=== PATIENT | male | born 1945 | race Caucasian/White ===

== ENCOUNTER 2023-05-27 09:51 | Inpatient (IN) ==
[2023-05-27] MEDS ORDERED: SODIUM CHLORIDE 0.9% 500 ML IV STA (10:01)
--- NOTE | 2023-05-27 10:36 | CT Scan Report ---
CT abd pelvis wo con CLINICAL HISTORY: hypotension, LLQ abd pain, constipation TECHNIQUE: Helical axial images of the abdomen and pelvis were obtained. Automated dose lowering tech niques and/or adjustment according to patient size were utilized for this exam. This exam was perfor med without intravenous contrast. CT DOSE: 429.87 mGy.cm COMPARISON: Comparison is made to CT abdomen pelvis 05/17/2023 FINDINGS: Lower chest: Bronchial wall thickening is seen in the lower lungs as visualized. Liver: Hepatic cysts are seen. Gallbladder and biliary tree: Layering radiodense material is seen in the dependent portion of the li carolyn representing sludge. No intra- or extrahepatic biliary ductal dilation. Pancreas: Unremarkable, no focal lesions. Spleen: Unremarkable. Adrenals: Unremarkable. Kidneys and ureters: Unremarkable. Bladder: Diffuse homogeneous wall thickening is seen. Reproductive organs: Prostatic calcifications are seen which may represent prior hemorrhage or granul omatous disease. Bowel: Diverticulosis is seen without diverticulitis. The appendix is normal. Lymph nodes Retroperitoneal: Unremarkable. Pelvic: Unremarkable. Mesenteric: Unremarkable. Peritoneum: Normal. Vessels: Atherosclerotic calcifications are seen. Abdominal wall: Right hernia repair changes are seen. There is a left inguinal hernia containing loop s of bowel which do not appear distended. Bones: Degenerative changes in the visualized spine. IMPRESSION: No acute abnormalities are seen, in particular there is diverticulosis without evidence of diverticul itis in this patient with left lower quadrant pain. No fecal impaction is noted. ACT 112: Negative or not required by law. Electronically signed by: Reyes Turcios M.D. 05/27/2023 10:34 AM
[2023-05-27 10:40] LABS: Basophils # (auto) 0.02 K/uL (0.00-0.20); Basophils % (auto) 0.6 %; Eosinophils # (auto) 0.09 K/uL (0.00-0.50); Eosinophils % (auto) 2.7 %; Hematocrit (blood only) 43.4 % (42.0-52.0); Hemoglobin 14.6 g/dl (14.0-18.0); Immature Granulocytes # (auto) 0.01 K/uL (0.01-0.20); Immature Granulocytes % (auto) 0.3 %; Lymphocytes # (auto) 0.54 K/uL (1.20-3.40); Lymphocytes % (auto) 16.4 %; Mean Corpuscular Hemoglobin 34.5 pg (25.0-34.0); Mean Corpuscular Hgb Conc 33.6 g/dL (32.0-36.0); Mean Corpuscular Volume 102.6 fL (80.0-100.0); Mean Platelet Volume 9.8 fL (9.4-12.4); Monocytes # (auto) 0.34 K/uL (0.11-0.59); Monocytes % (auto) 10.3 %; Neutrophils % (auto) 69.7 %; Platelet Count 224 K/uL (130-400); RDW Coefficient of Variation 12.7 % (11.5-14.5); RDW Standard Deviation 47.8 fL (36.4-46.3); Red Blood Count 4.23 M/uL (4.70-6.10)
[2023-05-27 11:02] LABS: Albumin Globulin Ratio 1.6 (0.9-2); Albumin Level 4.2 gm/dl (3.4-5.0); BUN Creatinine Ratio 13.7 (10-20); Bilirubin,Total 0.5 mg/dl (0.2-1.0); Calcium 8.8 mg/dl (8.6-10.3); Creatinine Clr Calc Pharmacy 43.4 ml/min; Est GFR (African American) 70.3 ml/min; Est GFR (Non-African American) 60.6 ml/min; Globulin 2.6 gm/dl (2.5-4.0); Potassium 4.7 mmol/L (3.5-5.1); Total Protein 6.8 gm/dl (6.0-8.3)
[2023-05-27 11:07] LABS: Troponin I High Sensitivity 7.9 pg/ml (0-20)
[2023-05-27] MEDS ORDERED: HYDROmorphone INJ 0.5 MG/0.5 ML SYR IV STA (11:08)
[2023-05-27] MEDS ORDERED: fentaNYL citrate PF 100 MCG/2 ML VIAL IV STA (11:10)
[2023-05-27 11:11] LABS: INR 1.1 (0.9-1.1); Prothrombin Time 12.4 Seconds (9.0-12.0)
[2023-05-27] MEDS ORDERED: SODIUM CHLORIDE 0.9% 500 ML IV ONE (12:59)
[2023-05-27] MEDS ORDERED: ONDANSETRON INJ 2 MG/ML 2 ML VIAL IV STA (12:59)
[2023-05-27] MEDS ORDERED: SODIUM CHLORIDE 0.9% 1,000 ML IV SCH (13:30)
--- NOTE | 2023-05-27 13:51 | History & Physical Report ---
Date of Service May 27, 2023 Assessment & Plan (1) Acute constipation: Plan: Sudden change in bowel habit warrants outpatient colonoscopy although will defer this to his outpatient providers given progressive neurological disease. Combination of orthostasis with new onset constipation with ill-defined ongoing neurological disease (possible CANVAS) suggests autonomic dysfunction - consider neruology consult. Initial treatment for constipation irregardless is laxatives and will start Miralax TID with Senna/docusate BID - milk molasses enema effective in the ER (2) Orthostatic hypotension: Plan: Suspect autonomic dysfunction as above in setting of vagal stimulation from large bowel movement, anti-hypertensive use and suspect underlying autonomic dysfunction as above. Stop lisinopril. IV fluids overnight. Repeat orthostatics tomorrow to consider fludrocortisone use. (3) SIRS (systemic inflammatory response syndrome): Plan: SIRS criteria met with low WBC and elevated HR without source of infection to suggest sepsis - abdominal pain resolved following large bowel movement in the ER. Procalcitonin and Lactate normal, intermittent hypotension less likely to be infection related. Follow up blood cultures but hold off empiric antibiotics on admission. (4) Macrocytosis without anemia: Plan: B12, folate, retic count, LDH with AM labs (5) Severe protein-calorie malnutrition: Plan: Consult dietary (6) Limb ataxia: Plan: PT/OT (7) Hereditary peripheral neuropathy: (8) Eosinophilic esophagitis: Plan: Continue pantoprazole, no current issues with swallowing (9) Atrial fibrillation: Plan: Paroxysmal, continue amiodarone Continue Eliquis for anticoagulation Plan VTE Prophylaxis - Eliquis Diet - clear liquids, advance as tolerated Disposition - observation status to med/tele Admission and Anticipated Discharge Date Admission Date: May 27, 2023 History of Present Illness Chief Complaint: Abdominal pain, constipation, orthostatic hypotension Primary Care Provider: Dorian Cardenas, III, LI Mukesh Jackson is a 77 year old male with hereditary peripheral neuropathy and 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 He denies any new medications changes. No nausea, vomiting, hemato chezia or melena. Never had problems with constipation previously. He notes 3 weeks of worsening abdominal pain associated with orthostatic dizziness, worsening constipation and no bowel movement for the last 3 weeks. Prior to this he was relatively regular with a bowel movement every day and not requiring laxatives. He was seen in the ER on May 17 and started on Senna without much effect. He has also over the counter colace, MiraLAX, suppositories and an enema. In the ER he was given a milk molasses enema causing a large bowel movement with associated hypotension and diaphoresis. He denies any fever or chills. No history of diverticulitis. Last colonoscopy not completely known by patient or his but possibly 4-5 years ago - thinks this was done in [place]. No prior problems with orthostatic dizziness but this has progressed over the last 3 weeks. He continues to take lisinopril (last took this morning). His notes significant weight loss and progression of his neurological condition with mainly worsening balance and peripheral neuropathy over the last 8 months. He also notes history of paroxysmal atrial fibrillation with recent failed ablation. He continues to take amiodarone 100mg pO daily. He is visibly short of breath but denies this when I ask his. No chest pain. He reports he only gets short of breath when he is in atrial fibrillation. Allergies Allergy/AdvReac Type Severity Reaction Status Date / Time Penicillins Allergy Severe Hives Verified 05/27/23 08:43 morphine AdvReac Severe Anaphylaxis Verified 05/27/23 08:43 phenytoin [From Dilantin] AdvReac Severe Anaphylaxis Verified 05/27/23 08:43 Home Medications Medication Instructions Recorded Confirmed Type apixaban 5 mg tablet (Eliquis) 5 mg PO BID 09/05/20 05/27/23 History loratadine 10 mg tablet (Claritin) 10 mg PO QAM 09/05/20 05/27/23 History cyanocobalamin (vitamin B-12) 500 500 mcg PO QAM 06/06/21 05/27/23 History mcg tablet (Vitamin B-12) fluticasone propionate 50 1 spray intranasal BID 06/26/22 05/27/23 History mcg/actuation nasal spray,suspension latanoprost 0.005 % eye drops 1 drp ophthalmic (eye) HS 07/10/22 05/27/23 History pantoprazole 40 mg tablet,delayed 40 mg PO QAM EOE #90 tabs 07/21/22 05/27/23 Rx release (Protonix) cyclobenzaprine 5 mg tablet 5 mg PO TID PRN muscle spasm #30 08/26/22 05/27/23 Rx tabs atorvastatin 10 mg tablet 10 mg PO HS #90 tabs 09/22/22 05/27/23 Rx magnesium citrate 100 mg tablet 50 mg PO DAILY 11/20/22 05/27/23 History amiodarone 200 mg tablet 100 mg PO QPM 04/09/23 05/27/23 History lisinopril 2.5 mg tablet 2.5 mg PO QAM #90 tabs 05/15/23 05/27/23 Rx sennosides 8.6 mg tablet (Senna 8.6 mg PO BID PRN constipation #14 05/17/23 05/27/23 Rx Lax) tabs albuterol sulfate 90 mcg/actuation 1 - 2 puff inhalation .Q4-6H PRN 05/27/23 05/27/23 History aerosol inhaler (ProAir HFA) shortness of breath or wheezing budesonide-formoterol HFA 160 1 puff inhalation BID 05/27/23 05/27/23 History mcg-4.5 mcg/actuation aerosol inhaler (Symbicort) Past Med/Surg History Medical History Asthma Atrial fibrillation Eosinophilic esophagitis Malignant neoplasm of prostate On anticoagulant therapy Organic impotence Seizure Surgical History H/O cataract extraction H/O endoscopy H/O hernia repair H/O vasectomy History of cardioversion History of colonoscopy History of esophagogastroduodenoscopy (EGD) History of exploratory laparotomy History of lung biopsy History of right knee joint replacement History of tonsillectomy History of tooth extraction Hx of basal cell carcinoma excision Family History Mother Breast cancer Myocardial infarction Father Myocardial infarction Brother Myocardial infarction Sister Cerebellar ataxia Denies family history of Ovarian cancer Prostate cancer Colorectal cancer Social History Smoking Status: Never smoker Second Hand Exposure: No; Do You Dip or Chew Tobacco: No; Hx Alcohol Use: No Hx Substance Use: No Preferred Language: Vietnamese Communication Ability: Effective Visual Impairment: No Limitations Hearing Ability: Use of Hearing Aid Manager Document Control Required: No Beliefs That Will Affect Care: None marital status: Current Living Situation: Spouse current occupational status: employed 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 How many Children do You have: 1 Feels Safe at Home: Yes Childhood Exposure to Second-Hand Smoke: Yes Diet: regular Diet Comment: regular caffeine: Yes during the past year weight has: remained stable Dental Care, Regularly: No Physical Activity Frequency: Daily Seatbelt Use: always Sunscreen Use: No Assistive Devices: Walker Review of Systems Review of Systems: All systems reviewed & are unremarkable except as noted in HPI & below Physical Exam Constitutional: well developed and + cachectic; no acute distress Eyes: PERRL, conjunctivae normal, anicteric sclerae ENMT: Mouth: + dry oral mucous membranes Respiratory: + labored breathing, + uses accessory muscles and able to speak in complete sentences; no cough, no pursed lip breathing and no stridor Auscultation: lungs clear to auscultation bilaterally; breath sounds present, no diminished lung sounds, no crackles, no rales, no rhonchi and no wheezes Cardiovascular: Rate/Rhythm: regular rate and + irregularly irregular Heart Sounds: no murmur Extremities: normal capillary refill; no calf tenderness and no pedal edema Gastrointestinal (Abdomen): normal bowel sounds, soft, nontender, no hepatosplenomegaly Musculoskeletal: no cyanosis or clubbing, extremities motor strength 5/5 Skin: no rashes, warm and dry Neurologic: moves all extremities, awake and + confused Psychiatric: Orientation: alert, oriented to person and oriented to place; + not oriented to time Genitourinary: no CVA tenderness Results & Data Results & Data Vital Signs (Past 12 Hours) Vital Signs Temp Pulse Resp BP Pulse Ox O2 Del Method O2 Flow Rate 05/27/23 13:00 85 28 H 05/27/23 13:00 56/34 L 05/27/23 12:45 76 27 H 05/27/23 12:30 86 23 05/27/23 12:30 153/104 H 05/27/23 12:15 74 26 H 95 05/27/23 12:15 136/90 05/27/23 12:00 80 21 93 05/27/23 12:00 99/77 L 05/27/23 11:45 62 21 95 05/27/23 11:30 78 19 87 L 05/27/23 11:30 115/87 05/27/23 11:15 78 27 H 05/27/23 11:00 74 17 92 05/27/23 11:00 115/78 05/27/23 10:45 79 18 93 05/27/23 10:30 81 20 05/27/23 10:29 85 24 05/27/23 12:24 88 05/27/23 10:01 96 Room Air 05/27/23 10:01 96 Room Air 0 05/27/23 09:52 36.6 C 70 20 118/81 96 Room Air Laboratory Results Abnormal lab results 05/27/23 05/27/23 Range/Units 10:16 10:16 WBC 3.30 L (4.8-10.8) K/ul RBC 4.23 L (4.70-6.10) M/uL MCV 102.6 H (80.0-100.0) fL MCH 34.5 H (25.0-34.0) pg RDW Std Deviation 47.8 H (36.4-46.3) fL Lymph # (Auto) 0.54 L (1.20-3.40) K/uL PT 12.4 H (9.0-12.0) Seconds Diagnostic Findings XR chest 1V portable CLINICAL HISTORY: tachypnea TECHNIQUE: Single frontal radiograph of the chest was obtained. Comparison: Comparison is made to CT chest 06/06/2021 FINDINGS: No lines and tubes are seen. The aorta is tortuous. The remainder of the cardiomediastinal silhouette is unremarkable. Reticular interstitial opacities are seen. Postsurgical changes at the left lung base are unchanged. No evidence of pleural effusion or pneumothorax. IMPRESSION: No acute chest disease. CT abd pelvis wo con CLINICAL HISTORY: hypotension, LLQ abd pain, constipation TECHNIQUE: Helical axial images of the abdomen and pelvis were obtained. Automated dose lowering techniques and/or adjustment according to patient size were utilized for this exam. This exam was performed without intravenous contrast. CT DOSE: 429.87 mGy.cm COMPARISON: Comparison is made to CT abdomen pelvis 05/17/2023 FINDINGS: Lower chest: Bronchial wall thickening is seen in the lower lungs as visualized. Liver: Hepatic cysts are seen. Gallbladder and biliary tree: Layering radiodense material is seen in the dependent portion of the likely representing sludge. No intra- or extrahepatic biliary ductal dilation. Pancreas: Unremarkable, no focal lesions. Spleen: Unremarkable. Adrenals: Unremarkable. Kidneys and ureters: Unremarkable. Bladder: Diffuse homogeneous wall thickening is seen. Reproductive organs: Prostatic calcifications are seen which may represent prior hemorrhage or granulomatous disease. Bowel: Diverticulosis is seen without diverticulitis. The appendix is normal. Lymph nodes Retroperitoneal: Unremarkable. Pelvic: Unremarkable. Mesenteric: Unremarkable. Peritoneum: Normal. Vessels: Atherosclerotic calcifications are seen. Abdominal wall: Right hernia repair changes are seen. There is a left inguinal hernia containing loops of bowel which do not appear distended. Bones: Degenerative changes in the visualized spine. IMPRESSION: No acute abnormalities are seen, in particular there is diverticulosis without evidence of diverticulitis in this patient with left lower quadrant pain. No fecal impaction is noted. Medications Administered ER Medications Given: Normal saline 500ml bolus Fentanyl 25 mcg IV Ondansetron 4mg IV Normal saline 500ml bolus Normal saline @ 125 ml/hr ECG Rate (beats per minute): 76 Rhythm: normal sinus Findings: + PAC and + PVC Comparison ECG Date: from (May 27, 2023) Change: the following changes noted (ST depressed in inferior leads) Code Status & VTE Plan Code Status DNR/DNI VTE Prophylaxis Plan VTE Prophylaxis will be ordered: Yes PG Care Time/CCT Total # of Minutes Spent Total Time Spent with Patient: Total time spent is greater than 50% in coordination of care (as documented) at patient's floor/unit and/or counseling patient: Coding Level of Care Code 89307 INT INP/OBS CARE 3/75MIN Diagnoses Acute constipation K59.00 Orthostatic hypotension I95.1 SIRS (systemic inflammatory response syndrome) R65.10 Macrocytosis without anemia D75.89 Severe protein-calorie malnutrition E43 Limb ataxia R27.0 Hereditary peripheral neuropathy G60.9 Eosinophilic esophagitis K20.0 Atrial fibrillation I48.91
--- NOTE | 2023-05-27 14:02 | XRay Report ---
XR chest 1V portable CLINICAL HISTORY: tachypnea TECHNIQUE: Single frontal radiograph of the chest was obtained. Comparison: Comparison is made to CT chest 06/06/2021 FINDINGS: No lines and tubes are seen. The aorta is tortuous. The remainder of the cardiomediastinal silhouette is unremarkable. Reticular interstitial opacities are seen. Postsurgical changes at the left lung ba se are unchanged. No evidence of pleural effusion or pneumothorax. IMPRESSION: No acute chest disease. ACT 112: Negative or not required by law. Electronically signed by: Reyes Turcios M.D. 05/27/2023 2:01 PM
--- NOTE | 2023-05-27 14:14 | Emergency Department Note ---
Impression & Plan Orthostatic hypotension, Acute dehydration, Acute constipation, Lower abdominal pain ED Provider Note INFORMANT: Patient and family ED PROVIDER(S): Mukesh Ambriz MD CHIEF COMPLAINT: Hypotension PLAN: Disposition: Admitted Outpatient prescription management: none Referral: None MEDICAL DECISION MAKING: Patient presented because of orthostatic hypotension. He had abdominal pain and had not have a bowel movement for 1.5 weeks. Patient had an IV established. Blood work and imaging performed. ECG showed sinus rhythm with premature supraventricular complexes. No ischemia. He had an unremarkable CBC and chemistry panel. Patient's lactate was negative. He underwent CT imaging. He did request some analgesia and was given a small dose of fentanyl. I did discuss this with the ED pharmacist and he has received this before. Patient was feeling somewhat better after the fentanyl and imaging revealed severe constipation. Patient did not have any acute findings noted. Milk molasses enema was ordered. The patient had a large bowel movement that was nonbloody. He became diaphoretic and was noted to be orthostatic. He had a second fluid bolus administered. Patient was placed in the bed. He was given IV Zofran as he became nauseated. The patient proceeded to have 2 more extremely large bowel movements. His 10 out of 10 pain did decrease to 5 out of 10. In light of his orthostasis and abdominal pain further management in the hospital was felt to be appropriate. [facility] Patient was evaluated in the ER admitted for further management Care/management discussed with: Discussed with fiscal manager and ED pharmacist Level of care consideration(s): After review of the information above and other included data, I feel the patient requires admission. Triage Nursing notes: reviewed and agree them. Vital Signs: reviewed and remarkable for hypotension Additional History obtained from: none Chronic Medical/Social Conditions affecting care: A-fib, chronic anticoagulation, balance disorder Prior /Outside records reviewed: Cardiology note from today reviewed. Routine office visit. Differential Diagnosis: Constipation, diverticulitis, obstruction, infection, dehydration, metabolic abnormality, hypo/hyperglycemia, electrolyte disturbance, anemia, cardiac sources, , toxicologic, neurologic, as well as other pathologies. Diagnostics, independently interpreted by me: ECG: Twelve-lead ECG reveals sinus rhythm with premature supraventricular complexes at [address] No ST elevation.. Cardiac Monitoring: Cardiac monitoring ordered by me: The patient was placed on continuous cardiac monitoring and observed. It revealed a normal sinus rhythm at 85 beats per minute without ectopy or evidence of dysrhythmia. Medical decision rules: none Imaging studies: CT scan reveals severe constipation. Left inguinal hernia. No acute bowel obstruction or other acute pathology. No perforation HPI: The patient is a 77-year-old male who arrives for evaluation of hypotension. The patient was referred from Dr. Celis's office after. Having orthostatic hypotension in the office. Patient was also complaining of lower abdominal pain. On history he notes not having a bowel movement for at least the 1.5 weeks. Patient did try [id number] treatment without success. Patient rates abdominal pain as 10 out of 10 and in the left lower quadrant. He has been experiencing some dizziness and lightheadedness. Pt denies LOC, headache, fevers, chills, diaphoresis, visual changes, neck pain, chest pain, breathing difficulties, nausea, vomiting, back pain, melena, hematochezia, urinary symptoms, numbness, weakness, lymphadenopathy, rash, or other complaints. PAST MEDICAL HISTORY: See Below, A-fib, left inguinal hernia PAST SURGICAL HISTORY: See Below, SOCIAL HISTORY: See Below, HOME MEDICATIONS: See Below ALLERGIES: See Below VITALS: See Below PHYSICAL EXAMINATION: GENERAL: Awake, alert, uncomfortable-appearing, in no distress HENT: Normocephalic, atraumatic. Oropharynx unremarkable. EYES: Normal conjunctiva. Sclera non-icteric. NECK: Inspection normal. Non-tender. Supple. No nuchal rigidity. FROM. No masses. RESPIRATORY: Clear to auscultation. No wheezes. No rales. Normal respiratory effort. CARDIAC: Normal rate. Normal rhythm. No murmurs. No rubs. Extremities warm and well perfused. Pulses equal. No JVD. GI: Soft, non-distended. Bilateral lower tenderness to palpation. No rebound or guarding. Firm mass noted in the left lower quadrant. Hernia noted in the left inguinal area. Reducible. RECTAL: Deferred. MUSCULOSKELETAL: Atraumatic. Chest examination reveals no tenderness. The back is symmetrical on inspection without obvious abnormality. There is no CVA tenderness to palpation. No joint edema. LOWER EXTREMITIES: Calves are equal size bilaterally and non-tender. No edema. No discoloration. NEURO: Normal sensorium. No sensory or motor deficits noted. SKIN: No rash or jaundice noted. PROCEDURES: none CRITICAL CARE: none OBSERVATION NOTE: none Past Med/Surg History Medical History Asthma Atrial fibrillation Eosinophilic esophagitis Malignant neoplasm of prostate On anticoagulant therapy Organic impotence Seizure Surgical History H/O cataract extraction H/O endoscopy H/O hernia repair H/O vasectomy History of cardioversion History of colonoscopy History of esophagogastroduodenoscopy (EGD) History of exploratory laparotomy History of lung biopsy History of right knee joint replacement History of tonsillectomy History of tooth extraction Hx of basal cell carcinoma excision Family History Mother Breast cancer Myocardial infarction Father Myocardial infarction Brother Myocardial infarction Sister Cerebellar ataxia Denies family history of Ovarian cancer Prostate cancer Colorectal cancer Social History Smoking Status: Never smoker Second Hand Exposure: No; Do You Dip or Chew Tobacco: No; Hx Alcohol Use: Yes Alcohol type: wine Alcohol Intake Frequency: Monthly or Less Hx Substance Use: No Preferred Language: Gambian Communication Ability: Effective Visual Impairment: No Limitations Hearing Ability: Use of Hearing Aid [employer] Required: No Beliefs That Will Affect Care: None marital status: Current Living Situation: Spouse current occupational status: employed 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 How many Children do You have: 1 Feels Safe at Home: Yes Childhood Exposure to Second-Hand Smoke: Yes Diet: regular Diet Comment: regular caffeine: Yes during the past year weight has: remained stable Dental Care, Regularly: No Physical Activity Frequency: Daily Seatbelt Use: always Sunscreen Use: No Assistive Devices: Denture - Upper, Denture - Lower, Glasses and Hearing Aid - Bilateral Allergies Allergies Allergy/AdvReac Type Severity Reaction Status Date / Time Penicillins Allergy Severe Hives Verified 05/27/23 08:43 morphine AdvReac Severe Anaphylaxis Verified 05/27/23 08:43 phenytoin [From Dilantin] AdvReac Severe Anaphylaxis Verified 05/27/23 08:43 Home Meds Home Medications Medication Instructions Recorded Confirmed apixaban 5 mg tablet (Eliquis) 5 mg PO BID 09/05/20 05/27/23 loratadine 10 mg tablet (Claritin) 10 mg PO QAM 09/05/20 05/27/23 cyanocobalamin (vitamin B-12) 500 500 mcg PO QAM 06/06/21 05/27/23 mcg tablet (Vitamin B-12) fluticasone propionate 50 1 spray intranasal BID 06/26/22 05/27/23 mcg/actuation nasal spray,suspension latanoprost 0.005 % eye drops 1 drp ophthalmic (eye) HS 07/10/22 05/27/23 magnesium citrate 100 mg tablet 50 mg PO DAILY 11/20/22 05/27/23 amiodarone 200 mg tablet 100 mg PO QPM 04/09/23 05/27/23 albuterol sulfate 90 mcg/actuation 1 - 2 puff inhalation .Q4-6H PRN 05/27/23 05/27/23 aerosol inhaler (ProAir HFA) shortness of breath or wheezing budesonide-formoterol HFA 160 1 puff inhalation BID 05/27/23 05/27/23 mcg-4.5 mcg/actuation aerosol inhaler (Symbicort) Previous Rx's Medication Instructions Recorded pantoprazole 40 mg tablet,delayed 40 mg PO QAM EOE #90 tabs 07/21/22 release (Protonix) cyclobenzaprine 5 mg tablet 5 mg PO TID PRN muscle spasm #30 08/26/22 tabs atorvastatin 10 mg tablet 10 mg PO HS #90 tabs 09/22/22 lisinopril 2.5 mg tablet 2.5 mg PO QAM #90 tabs 05/15/23 sennosides 8.6 mg tablet (Senna 8.6 mg PO BID PRN constipation #14 05/17/23 Lax) tabs Results & Data (ED) Vital Signs Vital Signs - 24 hr 05/27/23 09:52 05/27/23 10:01 05/27/23 10:01 Temperature 36.6 C Temperature Source Temporal Artery Scan Pulse Rate 70 Pulse Rate from SpO2 Sensor Respiratory Rate 20 Respiratory Effort / Characteristics Non-Labored Respiratory Depth Normal Blood Pressure 118/81 Blood Pressure Mean 93 Pulse Oximetry 96 96 96 Oxygen Delivery Method Room Air Room Air Room Air Oxygen Flow Rate 0 Sepsis Recent Fever Within 48 Hours No Sepsis New/Unexplained Change in Mental Status N/A Sepsis Action Taken by Nursing No Action Required Oxygen Flow Rate - Titration 0 05/27/23 12:24 05/27/23 10:29 05/27/23 10:30 Temperature Temperature Source Pulse Rate 88 85 81 Pulse Rate from SpO2 Sensor Respiratory Rate 24 20 Respiratory Effort / Characteristics Respiratory Depth Blood Pressure Blood Pressure Mean Pulse Oximetry Oxygen Delivery Method Oxygen Flow Rate Sepsis Recent Fever Within 48 Hours Sepsis New/Unexplained Change in Mental Status Sepsis Action Taken by Nursing Oxygen Flow Rate - Titration 05/27/23 10:45 05/27/23 11:00 05/27/23 11:00 Temperature Temperature Source Pulse Rate 79 74 Pulse Rate from SpO2 Sensor 60 72 Respiratory Rate 18 17 Respiratory Effort / Characteristics Respiratory Depth Blood Pressure 115/78 Blood Pressure Mean 98 Pulse Oximetry 93 92 Oxygen Delivery Method Oxygen Flow Rate Sepsis Recent Fever Within 48 Hours Sepsis New/Unexplained Change in Mental Status Sepsis Action Taken by Nursing Oxygen Flow Rate - Titration 05/27/23 11:15 05/27/23 11:30 05/27/23 11:30 Temperature Temperature Source Pulse Rate 78 78 Pulse Rate from SpO2 Sensor 76 Respiratory Rate 27 H 19 Respiratory Effort / Characteristics Respiratory Depth Blood Pressure 115/87 Blood Pressure Mean 92 Pulse Oximetry 87 L Oxygen Delivery Method Oxygen Flow Rate Sepsis Recent Fever Within 48 Hours Sepsis New/Unexplained Change in Mental Status Sepsis Action Taken by Nursing Oxygen Flow Rate - Titration 05/27/23 11:45 05/27/23 12:00 05/27/23 12:00 Temperature Temperature Source Pulse Rate 62 80 Pulse Rate from SpO2 Sensor 65 69 Respiratory Rate 21 21 Respiratory Effort / Characteristics Respiratory Depth Blood Pressure 99/77 L Blood Pressure Mean 88 Pulse Oximetry 95 93 Oxygen Delivery Method Oxygen Flow Rate Sepsis Recent Fever Within 48 Hours Sepsis New/Unexplained Change in Mental Status Sepsis Action Taken by Nursing Oxygen Flow Rate - Titration 05/27/23 12:15 05/27/23 12:15 05/27/23 12:30 Temperature Temperature Source Pulse Rate 74 Pulse Rate from SpO2 Sensor 76 Respiratory Rate 26 H Respiratory Effort / Characteristics Respiratory Depth Blood Pressure 136/90 153/104 H Blood Pressure Mean 112 116 Pulse Oximetry 95 Oxygen Delivery Method Oxygen Flow Rate Sepsis Recent Fever Within 48 Hours Sepsis New/Unexplained Change in Mental Status Sepsis Action Taken by Nursing Oxygen Flow Rate - Titration 05/27/23 12:30 05/27/23 12:45 05/27/23 13:00 Temperature Temperature Source Pulse Rate 86 76 Pulse Rate from SpO2 Sensor Respiratory Rate 23 27 H Respiratory Effort / Characteristics Respiratory Depth Blood Pressure 56/34 L Blood Pressure Mean 39 Pulse Oximetry Oxygen Delivery Method Oxygen Flow Rate Sepsis Recent Fever Within 48 Hours Sepsis New/Unexplained Change in Mental Status Sepsis Action Taken by Nursing Oxygen Flow Rate - Titration 05/27/23 13:00 Temperature Temperature Source Pulse Rate 85 Pulse Rate from SpO2 Sensor Respiratory Rate 28 H Respiratory Effort / Characteristics Respiratory Depth Blood Pressure Blood Pressure Mean Pulse Oximetry Oxygen Delivery Method Oxygen Flow Rate Sepsis Recent Fever Within 48 Hours Sepsis New/Unexplained Change in Mental Status Sepsis Action Taken by Nursing Oxygen Flow Rate - Titration Laboratory Data 05/27/23 10:16 05/27/23 10:16 Lab Results 05/27/23 05/27/23 05/27/23 Range/Units 10:16 10:16 10:16 WBC 3.30 L (4.8-10.8) K/ul RBC 4.23 L (4.70-6.10) M/uL Hgb 14.6 (14.0-18.0) g/dl Hct 43.4 (42.0-52.0) % MCV 102.6 H (80.0-100.0) fL MCH 34.5 H (25.0-34.0) pg MCHC 33.6 (32.0-36.0) g/dL RDW Std Deviation 47.8 H (36.4-46.3) fL RDW Coeff of Janet 12.7 (11.5-14.5) % Plt Count 224 (130-400) K/uL MPV 9.8 (9.4-12.4) fL Immature Gran % (Auto) 0.3 % Neut % (Auto) 69.7 % Lymph % (Auto) 16.4 % [place] % (Auto) 10.3 % Eos % (Auto) 2.7 % Baso % (Auto) 0.6 % Neut # (Auto) 2.30 (1.40-6.50) K/uL Lymph # (Auto) 0.54 L (1.20-3.40) K/uL [place] # (Auto) 0.34 (0.11-0.59) K/uL Eos # (Auto) 0.09 (0.00-0.50) K/uL Baso # (Auto) 0.02 (0.00-0.20) K/uL Immature Gran # (Auto) 0.01 (0.01-0.20) K/uL PT 12.4 H (9.0-12.0) Seconds INR 1.1 (0.9-1.1) Sodium 137 (136-145) mmol/L Potassium 4.7 (3.5-5.1) mmol/L Chloride 104 (98-107) mmol/L Carbon Dioxide 28 (21-32) mmol/L Anion Gap 5 (3-11) BUN 16 (6-23) mg/dl Creatinine 1.17 (0.6-1.4) mg/dl Est Cr Clr Drug Dosing 43.4 ml/min Est GFR ( Amer) 70.3 ml/min Est GFR (Non-Af Amer) 60.6 ml/min BUN/Creatinine Ratio 13.7 (10-20) Glucose 91 (70-99(Fasting)) mg/dl Lactate (0.4-2.0) mmol/L Calcium 8.8 (8.6-10.3) mg/dl Magnesium 2.0 (1.7-2.4) mg/dl Total Bilirubin 0.5 (0.2-1.0) mg/dl AST 22 (13-39) U/L ALT 18 (7-52) U/L Alkaline Phosphatase 98 (34-104) U/L Troponin I High Sens 7.9 (0-20) pg/ml Total Protein 6.8 (6.0-8.3) gm/dl Albumin 4.2 (3.4-5.0) gm/dl Globulin 2.6 (2.5-4.0) gm/dl Albumin/Globulin Ratio 1.6 (0.9-2) Lipase 41 (11-82) U/L 05/27/23 Range/Units 10:16 WBC (4.8-10.8) K/ul RBC (4.70-6.10) M/uL Hgb (14.0-18.0) g/dl Hct (42.0-52.0) % MCV (80.0-100.0) fL MCH (25.0-34.0) pg MCHC (32.0-36.0) g/dL RDW Std Deviation (36.4-46.3) fL RDW Coeff of Jante (11.5-14.5) % Plt Count (130-400) K/uL MPV (9.4-12.4) fL Immature Gran % (Auto) % Neut % (Auto) % Lymph % (Auto) % [place] % (Auto) % Eos % (Auto) % Baso % (Auto) % Neut # (Auto) (1.40-6.50) K/uL Lymph # (Auto) (1.20-3.40) K/uL [place] # (Auto) (0.11-0.59) K/uL Eos # (Auto) (0.00-0.50) K/uL Baso # (Auto) (0.00-0.20) K/uL Immature Gran # (Auto) (0.01-0.20) K/uL PT (9.0-12.0) Seconds INR (0.9-1.1) Sodium (136-145) mmol/L Potassium (3.5-5.1) mmol/L Chloride (98-107) mmol/L Carbon Dioxide (21-32) mmol/L Anion Gap (3-11) BUN (6-23) mg/dl Creatinine (0.6-1.4) mg/dl Est Cr Clr Drug Dosing ml/min Est GFR ( Amer) ml/min Est GFR (Non-Af Amer) ml/min BUN/Creatinine Ratio (10-20) Glucose (70-99(Fasting)) mg/dl Lactate 1.2 (0.4-2.0) mmol/L Calcium (8.6-10.3) mg/dl Magnesium (1.7-2.4) mg/dl Total Bilirubin (0.2-1.0) mg/dl AST (13-39) U/L ALT (7-52) U/L Alkaline Phosphatase (34-104) U/L Troponin I High Sens (0-20) pg/ml Total Protein (6.0-8.3) gm/dl Albumin (3.4-5.0) gm/dl Globulin (2.5-4.0) gm/dl Albumin/Globulin Ratio (0.9-2) Lipase (11-82) U/L Administered Medications Discontinued Medications Fentanyl Citrate (Fentanyl Citrate Pf 100 Mcg/2 Ml Vial) 25 mcg IV NOW STA Stop: 05/27/23 11:11 Last Admin: 05/27/23 11:29 Dose: 25 mcg Documented By: ANSELMO Hydromorphone HCl (Hydromorphone Inj 0.5 Mg/0.5 Ml Syr) 0.25 mg IV NOW STA Stop: 05/27/23 11:09 Last Admin: 05/27/23 11:32 Dose: Not Given Documented By: ANSELMO Sodium Chloride (Nss) 500 mls @ 999 mls/hr IV .Q31M STA Stop: 05/27/23 10:31 Last Infusion: 05/27/23 11:32 Dose: 999 mls/hr Documented By: Admin: 05/27/23 10:17 Dose: 999 mls/hr Documented By: ANSELMO Sodium Chloride (Nss) 500 mls @ 999 mls/hr IV .Q31M ONE Stop: 05/27/23 13:29 Last Admin: 05/27/23 13:01 Dose: 999 mls/hr Documented By: ANSELMO Ondansetron HCl (Ondansetron Inj 2 Mg/Ml 2 Ml Vial) 4 mg IV NOW STA Stop: 05/27/23 13:00 Last Admin: 05/27/23 13:01 Dose: 4 mg Documented By: ANSELMO Imaging Data Radiologist's Impression: Abdomen/Pelvis CT 05/27/23 10:01 CT abd pelvis wo con CLINICAL HISTORY: hypotension, LLQ abd pain, constipation TECHNIQUE: Helical axial images of the abdomen and pelvis were obtained. Automated dose lowering techniques and/or adjustment according to patient size were utilized for this exam. This exam was performed without intravenous contrast. CT DOSE: 429.87 mGy.cm COMPARISON: Comparison is made to CT abdomen pelvis 05/17/2023 FINDINGS: Lower chest: Bronchial wall thickening is seen in the lower lungs as visualized. Liver: Hepatic cysts are seen. Gallbladder and biliary tree: Layering radiodense material is seen in the dependent portion of the likely representing sludge. No intra- or extrahepatic biliary ductal dilation. Pancreas: Unremarkable, no focal lesions. Spleen: Unremarkable. Adrenals: Unremarkable. Kidneys and ureters: Unremarkable. Bladder: Diffuse homogeneous wall thickening is seen. Reproductive organs: Prostatic calcifications are seen which may represent prior hemorrhage or granulomatous disease. Bowel: Diverticulosis is seen without diverticulitis. The appendix is normal. Lymph nodes Retroperitoneal: Unremarkable. Pelvic: Unremarkable. Mesenteric: Unremarkable. Peritoneum: Normal. Vessels: Atherosclerotic calcifications are seen. Abdominal wall: Right hernia repair changes are seen. There is a left inguinal hernia containing loops of bowel which do not appear distended. Bones: Degenerative changes in the visualized spine. IMPRESSION: No acute abnormalities are seen, in particular there is diverticulosis without evidence of diverticulitis in this patient with left lower quadrant pain. No fecal impaction is noted. ACT 112: Negative or not required by law. Electronically signed by: Reyes Turcios M.D. 05/27/2023 10:34 AM Chest X-Ray 05/27/23 13:27 XR chest 1V portable CLINICAL HISTORY: tachypnea TECHNIQUE: Single frontal radiograph of the chest was obtained. Comparison: Comparison is made to CT chest 06/06/2021 FINDINGS: No lines and tubes are seen. The aorta is tortuous. The remainder of the cardiomediastinal silhouette is unremarkable. Reticular interstitial opacities are seen. Postsurgical changes at the left lung base are unchanged. No evidence of pleural effusion or pneumothorax. IMPRESSION: No acute chest disease. ACT 112: Negative or not required by law. Electronically signed by: Reyes Turcios M.D. 05/27/2023 2:01 PM Discharge Plan Visit Data Chief Complaint: Hypotension Stated Complaint: REFERRED BY CELIA GOYAL, GI ISSUES ED Provider: Mukesh Ambriz Discharge Problem: Orthostatic hypotension, Acute dehydration, Acute constipation, Lower abdominal pain Forms Stand Alone Forms: [facility] Prescriptions Prescriptions: No Action pantoprazole [Protonix] 40 mg tablet,delayed release (DR/EC) 40 mg PO QAM Qty: 90 3RF atorvastatin 10 mg tablet 10 mg PO HS Qty: 90 3RF lisinopril 2.5 mg tablet 2.5 mg PO QAM Qty: 90 3RF loratadine [Claritin] 10 mg tablet 10 mg PO QAM Eliquis 5 mg tablet 5 mg PO BID amiodarone 200 mg tablet 100 mg PO QPM fluticasone propionate 50 mcg/actuation spray,suspension 1 spray intranasal BID Rx Instructions: administer into each nostril cyclobenzaprine 5 mg tablet 5 mg PO TID PRN (Reason: muscle spasm) Qty: 30 1RF magnesium citrate 100 mg tablet 50 mg PO DAILY cyanocobalamin (vitamin B-12) [Vitamin B-12] 500 mcg Tablet 500 mcg PO QAM sennosides [Senna Lax] 8.6 mg tablet 8.6 mg PO BID PRN (Reason: constipation) Qty: 14 0RF albuterol sulfate [ProAir HFA] 90 mcg/actuation HFA aerosol inhaler 1 - 2 puff inhalation .Q4-6H PRN (Reason: shortness of breath or wheezing) budesonide-formoterol [Symbicort] 160-4.5 mcg/actuation HFA aerosol inhaler 1 puff inhalation BID latanoprost 0.005 % Drops 1 drp OPHTHALMIC (EYE) HS Referrals Referrals: Dorian Cardenas III, CRNP [Primary Care Provider] -
[2023-05-27 14:20] LABS: Thyroid Stimulating Hormone 0.968 uIu/ml (0.300-4.500)
[2023-05-27 15:25] LABS: Appearance Urine Clear (Clear); Bilirubin Urine Negative (Negative); Blood Urine Negative (Negative); Color Urine Dark Yellow; Glucose Urine UA Negative (Negative); Ketones Urine Negative (Negative); Leukocyte Esterase Urine Negative (Negative); Nitrite Urine Negative (Negative); Protein Urine Negative (Negative); Specific Gravity Urine 1.012 (1.000-1.030); Urobilinogen Urine Negative (Negative); pH Urine 6.5 (4.5-7.5)
[2023-05-27] MEDS: LACTATED RINGER'S 1,000 ML IV SCH (16:26)
--- NOTE | 2023-05-27 17:58 | Electrocardiogram Report ---
Test Reason : Blood Pressure : / mmHG Vent. Rate : 076 BPM Atrial Rate : 076 BPM P-R Int : 178 ms QRS Dur : 078 ms QT Int : 390 ms P-R-T Axes : -20 004 -40 degrees QTc Int : 438 ms Sinus rhythm with Premature supraventricular complexes and with occasional Premature ventricular comp lexes Nonspecific ST and T wave abnormality Abnormal ECG When compared with ECG of 27-MAY-2023 08:21, (unconfirmed) Premature supraventricular complexes are now Present Sinus rhythm is no longer with ventricular escape complexes ST now depressed in Inferior leads Confirmed by Aleks Morales ([id number]) on 05/27/2023 5:58:07 PM Referred By: Mukesh Connelly Confirmed By:Phil Morales
[2023-05-27] MEDS: AMIODARONE 200 MG TAB PO SCH (19:50)
[2023-05-27] MEDS ORDERED: LACTATED RINGER'S 1,000 ML IV ONE (21:22)
[2023-05-27] MEDS: LATANOPROST 0.005% OP SOLN 2.5 ML BTL OP SCH (21:47)
[2023-05-27] MEDS: DOCUSATE SODIUM/SENNA 50/8.6MG TAB PO SCH (21:47)
[2023-05-27] MEDS: FLUTICASONE PROPIONATE NA SPR 16 GM BTL SCH (21:47)
[2023-05-27] MEDS: APIXABAN 5 MG TABLET PO SCH (21:48)
[2023-05-27] MEDS: POLYETHYLENE (MIRALAX) 17 GM PACK PO SCH (21:48)
[2023-05-27] MEDS: ATORVASTATIN 10 MG TAB PO SCH (21:48)
[2023-05-27] MEDS: LORATADINE 10 MG TAB PO SCH (21:48)
[2023-05-27] MEDS: ACETAMINOPHEN 325 MG TAB PO PRN (23:15)
[2023-05-28] MEDS: LACTATED RINGER'S 1,000 ML IV SCH ×3 (03:06→19:52)
[2023-05-28 04:46] LABS: Hematocrit (blood only) 33.8 % (42.0-52.0); Hemoglobin 11.4 g/dl (14.0-18.0); Mean Corpuscular Hemoglobin 33.9 pg (25.0-34.0); Mean Corpuscular Hgb Conc 33.7 g/dL (32.0-36.0); Mean Corpuscular Volume 100.6 fL (80.0-100.0); Mean Platelet Volume 10.1 fL (9.4-12.4); Platelet Count 168 K/uL (130-400); RDW Coefficient of Variation 12.8 % (11.5-14.5); RDW Standard Deviation 47.2 fL (36.4-46.3); Red Blood Count 3.36 M/uL (4.70-6.10); White Blood Count 4.34 K/ul (4.8-10.8)
[2023-05-28 04:47] LABS: BUN Creatinine Ratio 10.3 (10-20); Basophils # (auto) 0.01 K/uL (0.00-0.20); Basophils % (auto) 0.2 %; Calcium 7.6 mg/dl (8.6-10.3); Creatinine Clr Calc Pharmacy 43.1 ml/min; Est GFR (African American) 70.3 ml/min; Est GFR (Non-African American) 60.6 ml/min; Immature Granulocytes # (auto) 0.01 K/uL (0.01-0.20); Immature Granulocytes % (auto) 0.2 %; Lymphocytes # (auto) 0.96 K/uL (1.20-3.40); Lymphocytes % (auto) 22.1 %; Monocytes # (auto) 0.43 K/uL (0.11-0.59); Monocytes % (auto) 9.9 %; Neutrophils # (auto) 2.93 K/uL (1.40-6.50); Neutrophils % (auto) 67.6 %; Potassium 4.1 mmol/L (3.5-5.1); Reticulocyte % 0.8 % (0.5-2.0); Reticulocytes # 0.03 10^6/uL (0.02-0.10)
[2023-05-28 07:16] LABS: Folate (Folic Acid),Ser orPlas > 22.30 ng/ml (>5.38); Vitamin B12 1236 pg/ml (180-914)
[2023-05-28] MEDS: DOCUSATE SODIUM/SENNA 50/8.6MG TAB PO SCH ×2 (08:55→20:18)
[2023-05-28] MEDS: PANTOprazole 40 MG TAB PO SCH (08:56)
[2023-05-28] MEDS: CYANOCOBALAMIN (B-12) 500 MCG TABLET PO SCH (08:56)
[2023-05-28] MEDS: APIXABAN 5 MG TABLET PO SCH ×2 (08:56→20:12)
[2023-05-28] MEDS: POLYETHYLENE (MIRALAX) 17 GM PACK PO SCH ×3 (08:57→20:18)
[2023-05-28] MEDS: FLUTICASONE PROPIONATE NA SPR 16 GM BTL SCH ×2 (08:57→20:12)
[2023-05-28] MEDS: FLUTICASONE/VILANTEROL 200/25MCG 14 PUFFS/INHALER INH SCH (08:57)
[2023-05-28 09:45] LABS: C Reactive Protein 3.02 mg/dl (0-0.5)
[2023-05-28] MEDS: ACETAMINOPHEN 325 MG TAB PO PRN ×2 (13:52→23:02)
[2023-05-28 14:08] LABS: Ferritin 125.8 ng/ml (8-388)
[2023-05-28] MEDS: AMIODARONE 200 MG TAB PO SCH (20:12)
[2023-05-28] MEDS: ATORVASTATIN 10 MG TAB PO SCH (20:12)
[2023-05-28] MEDS: LORATADINE 10 MG TAB PO SCH (20:13)
[2023-05-28] MEDS: LATANOPROST 0.005% OP SOLN 2.5 ML BTL OP SCH (20:13)
--- NOTE | 2023-05-28 22:32 | Hospitalist Progress Note ---
Date of Service May 28, 2023 Assessment & Plan (1) Acute constipation: Plan: Sudden change in bowel habit warrants outpatient colonoscopy although will defer this to his outpatient providers given progressive neurological disease. Combination of orthostasis with new onset constipation with ill-defined ongoing neurological disease (possible CANVAS) suggests autonomic dysfunction - consider neruology consult. Initial treatment for constipation irregardless is laxatives and will start Miralax TID with Senna/docusate BID - milk molasses enema effective in the ER Patient had a BM with blood on 05/28, will consult GI. Plan for EGD tomorrow. Iron studies point towards iron def. anemia (2) Orthostatic hypotension: Plan: Suspect autonomic dysfunction as above in setting of vagal stimulation from large bowel movement, anti-hypertensive use and suspect underlying autonomic dysfunction as above. Stop lisinopril. IV fluids overnight. Repeat orthostatics tomorrow to consider fludrocortisone use. (3) SIRS (systemic inflammatory response syndrome): Plan: SIRS criteria met with low WBC and elevated HR without source of infection to suggest sepsis - abdominal pain resolved following large bowel movement in the ER. Procalcitonin and Lactate normal, intermittent hypotension less likely to be infection related. Follow up blood cultures but hold off empiric antibiotics on admission. (4) Macrocytosis without anemia: Plan: B12, folate, retic count, LDH with AM labs (5) Severe protein-calorie malnutrition: Plan: Consult dietary (6) Limb ataxia: Plan: PT/OT (7) Hereditary peripheral neuropathy: (8) Eosinophilic esophagitis: Plan: Continue pantoprazole, no current issues with swallowing (9) Atrial fibrillation: Plan: Paroxysmal, continue amiodarone Continue Eliquis for anticoagulation Plan VTE Prophylaxis - Eliquis Diet - clear liquids, advance as tolerated Disposition - observation status to med/tele Admission and Anticipated Discharge Date Admission Date: May 28, 2023 Subjective Patient reports having blood in his stools today. It was a moderate amount. Review of Systems Review of Systems: All systems reviewed & are unremarkable except as noted in HPI & below Physical Exam Physical Exam: Constitutional: well developed and + cachectic; no acute distress Eyes: PERRL, conjunctivae normal, anicteric sclerae ENMT: Mouth: + dry oral mucous membranes Respiratory: Auscultation: lungs clear to auscultation bilaterally; breath sounds present, no diminished lung sounds, no crackles, no rales, no rhonchi and no wheezes Cardiovascular: Rate/Rhythm: regular rate and + irregularly irregular Heart Sounds: no murmur Extremities: normal capillary refill; no calf tenderness and no pedal edema Gastrointestinal (Abdomen): normal bowel sounds, soft, nontender, no hepatosplenomegaly Musculoskeletal: no cyanosis or clubbing, extremities motor strength 5/5 Skin: no rashes, warm and dry Neurologic: moves all extremities, awake and + confused Psychiatric: Orientation: alert, oriented to person and oriented to place; + not oriented to time Genitourinary: no CVA tenderness Results & Data Results & Data Vital Signs (Past 12 Hours) Vital Signs Temp Pulse Pulse Resp BP Pulse Ox O2 Del Method 05/28/23 20:00 Room Air 05/28/23 20:22 66 H 118/79 05/28/23 20:02 36.6 C 69 16 96/63 L 91 Room Air 05/28/23 14:10 66 05/28/23 15:26 37.6 C H 76 18 95/67 L 90 Room Air 05/28/23 12:06 36.9 C 57 L 18 101/62 93 Room Air PG Care Time/CCT Total # of Minutes Spent Total Time Spent with Patient: Total time spent is greater than 50% in coordination of care (as documented) at patient's floor/unit and/or counseling patient: Coding Level of Care Code 75271 SUB INP/OBS CARE 2/35MIN Diagnoses Acute constipation K59.00 Orthostatic hypotension I95.1 SIRS (systemic inflammatory response syndrome) R65.10 Macrocytosis without anemia D75.89 Severe protein-calorie malnutrition E43 Limb ataxia R27.0 Hereditary peripheral neuropathy G60.9 Eosinophilic esophagitis K20.0 Atrial fibrillation I48.91
[2023-05-29 05:05] LABS: Hematocrit (blood only) 33.7 % (42.0-52.0); Hemoglobin 11.4 g/dl (14.0-18.0); Mean Corpuscular Hemoglobin 34.7 pg (25.0-34.0); Mean Corpuscular Hgb Conc 33.8 g/dL (32.0-36.0); Mean Corpuscular Volume 102.4 fL (80.0-100.0); Mean Platelet Volume 10.1 fL (9.4-12.4); Platelet Count 150 K/uL (130-400); RDW Coefficient of Variation 12.6 % (11.5-14.5); RDW Standard Deviation 47.5 fL (36.4-46.3); Red Blood Count 3.29 M/uL (4.70-6.10); White Blood Count 3.34 K/ul (4.8-10.8)
[2023-05-29 05:06] LABS: Calcium 7.7 mg/dl (8.6-10.3); Creatinine Clr Calc Pharmacy 50.4 ml/min; Est GFR (Non-African American) 73.3 ml/min; Potassium 3.9 mmol/L (3.5-5.1)
--- NOTE | 2023-05-29 08:19 | Anesthesiology Consultation ---
Date of Service May 29, 2023 Assessment & Plan (1) Encounter for pre-operative examination: Chart Review Chart Review: Acceptable Risk for Surgery and Patient NOT seen in Pre Admission Testing Consults Requested none History Surgery Operation Date: 05/29/23 16:30 Proposed Procedures p Esophagogastroduodenoscopy Dr. Nathanael Huffman MD Height/Weight Height: 5 ft 9 in Weight: 58.8 kg Allergies Allergy/AdvReac Type Severity Reaction Status Date / Time Penicillins Allergy Severe Hives Verified 05/27/23 08:43 morphine AdvReac Severe Anaphylaxis Verified 05/27/23 08:43 phenytoin [From Dilantin] AdvReac Severe Anaphylaxis Verified 05/27/23 08:43 Medications Home Medications Medication Instructions Recorded Confirmed Last Taken apixaban 5 mg tablet (Eliquis) 5 mg PO BID 09/05/20 05/27/23 05/27/23 loratadine 10 mg tablet (Claritin) 10 mg PO QAM 09/05/20 05/27/23 05/27/23 cyanocobalamin (vitamin B-12) 500 500 mcg PO QAM 06/06/21 05/27/23 05/27/23 mcg tablet (Vitamin B-12) fluticasone propionate 50 1 spray intranasal BID 06/26/22 05/27/23 05/27/23 mcg/actuation nasal spray,suspension latanoprost 0.005 % eye drops 1 drp ophthalmic (eye) HS 07/10/22 05/27/23 05/26/23 pantoprazole 40 mg tablet,delayed 40 mg PO QAM EOE #90 tabs 07/21/22 05/27/23 05/27/23 release (Protonix) cyclobenzaprine 5 mg tablet 5 mg PO TID PRN muscle spasm #30 08/26/22 05/27/23 05/26/23 tabs atorvastatin 10 mg tablet 10 mg PO HS #90 tabs 09/22/22 05/27/23 05/26/23 magnesium citrate 100 mg tablet 50 mg PO DAILY 11/20/22 05/27/23 05/27/23 amiodarone 200 mg tablet 100 mg PO QPM 04/09/23 05/27/23 05/26/23 lisinopril 2.5 mg tablet 2.5 mg PO QAM #90 tabs 05/15/23 05/27/23 05/27/23 sennosides 8.6 mg tablet (Senna 8.6 mg PO BID PRN constipation #14 05/17/23 05/27/23 Unknown Lax) tabs albuterol sulfate 90 mcg/actuation 1 - 2 puff inhalation .Q4-6H PRN 05/27/23 05/27/23 Unknown aerosol inhaler (ProAir HFA) shortness of breath or wheezing budesonide-formoterol HFA 160 1 puff inhalation BID 05/27/23 05/27/23 05/27/23 mcg-4.5 mcg/actuation aerosol inhaler (Symbicort) Active Medications Generic Name Dose Route Start Last Admin Trade Name Freq PRN Reason Stop Dose Admin Acetaminophen 650 mg 05/27/23 16:15 05/28/23 23:02 Acetaminophen 325 Mg Tab PO 06/26/23 16:14 650 mg Q4H PRN Administration Pain or Fever Amiodarone HCl 100 mg 05/27/23 21:00 05/28/23 20:12 Amiodarone 200 Mg Tab PO 06/26/23 20:59 100 mg QPM JEREMIAS Administration Apixaban 5 mg 05/27/23 21:00 05/28/23 20:12 Apixaban 5 Mg Tablet PO 06/26/23 20:59 5 mg BID JEREMIAS Administration Atorvastatin Calcium 10 mg 05/27/23 21:00 05/28/23 20:12 Atorvastatin 10 Mg Tab PO 06/26/23 20:59 10 mg HS JEREMIAS Administration Cyanocobalamin 500 mcg 05/28/23 09:00 05/28/23 08:56 Cyanocobalamin (B-12) 500 Mcg Tablet PO 06/27/23 08:59 500 mcg QAM JEREMIAS Administration Fluticasone Propionate 1 sprays 05/27/23 21:00 05/28/23 20:12 Fluticasone Propionate Na Spr 16 Gm Btl NA 06/26/23 20:59 1 sprays BID JEREMIAS Administration Fluticasone/Vilanterol 1 puffs 05/28/23 09:00 05/28/23 08:57 Fluticasone/Vilanterol 200/25mcg 14 Puffs/Inhaler INH 06/27/23 08:59 1 puffs DAILY JEREMIAS Administration Latanoprost 1 drops 05/27/23 21:00 05/28/23 20:13 Latanoprost 0.005% Op Soln 2.5 Ml Btl OP 06/26/23 20:59 1 drops HS JEREMIAS Administration Loratadine 10 mg 05/27/23 21:00 05/28/23 20:13 Loratadine 10 Mg Tab PO 06/26/23 20:59 10 mg QPM JEREMIAS Administration Pantoprazole Sodium 40 mg 05/28/23 09:00 05/28/23 08:56 Pantoprazole 40 Mg Tab PO 06/27/23 08:59 40 mg QAM JEREMIAS Administration Polyethylene Glycol 17 gm 05/27/23 21:00 05/28/23 20:18 Polyethylene (Miralax) 17 Gm Pack PO 06/26/23 20:59 17 gm TID JEREMIAS Administration Senna/Docusate Sodium 1 tab 05/27/23 21:00 05/28/23 20:18 Docusate Sodium/Senna 50/8.6mg Tab PO 06/26/23 20:59 1 tab BID JEREMIAS Administration Past Medical History Medical History (Updated 05/29/23 @ 08:23 by Abelino Park MD) Acute constipation Asthma well controlled per pt > res inh use every few mos Atrial fibrillation dx several yrs ago > on eliquis bid .Previously followed with Dr. Degroot in [place] > no pacer Encounter for pre-operative examination Eosinophilic esophagitis Malignant neoplasm of prostate just radiation > resolved On anticoagulant therapy eliquis bid Organic impotence Orthostatic hypotension Seizure 12 yrs ago > result of severe asthma attack > one time incident Severe protein-calorie malnutrition SIRS (systemic inflammatory response syndrome) Neurology note 04/09/23: pt presents with his for f/u visit pt has h/o numbness and tingling in his legs b/l , that started about 10 yrs ago. It started in his right foot then progressed into his left foot and currently involves both legs (right greater than left side) to the knees. He really does not have any numbness in his arms or hands. He denies any pain and has no limb or spine pain, burning, or electric sensations. His balance is not good. He got a new walker He has a 73-year-old sister who recently tested positive for CANVAS, an autosomal recessive cerebellar ataxia, with sensory neuropathy and vestibular areflexia. They are very similar in their symptoms. Pt declines genetic testing at this point Patient has no incontinence of urine, memory loss, mood issues, or speech problems. He denies weakness in any limb and has reasonable energy most days. He is still working but is not exposed to any toxins or chemicals at work. Patient had an MRI of the brain in February of 2022 which showed some mild (to at best moderate) cerebral and cerebellar generalized atrophy. There are minimal to mild old small-vessel ischemic changes. 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 There was no evidence for myopathy, distal mononeuropathy or radiculopathy in the right arm or legs Past Family History Family History Mother , age 82 of cancer Breast cancer Myocardial infarction Father , age 84 of heart issues Myocardial infarction Brother Myocardial infarction Sister Cerebellar ataxia Denies family history of Ovarian cancer Prostate cancer Colorectal cancer Past Surgical History Surgical History H/O cataract extraction bilat H/O endoscopy H/O hernia repair H/O vasectomy History of cardioversion x4--for a fib History of colonoscopy History of esophagogastroduodenoscopy (EGD) last 06/2021 @ [facility] History of exploratory laparotomy History of lung biopsy History of right knee joint replacement History of tonsillectomy History of tooth extraction Hx of basal cell carcinoma excision Social History Smoking Status: Never smoker Do You Dip or Chew Tobacco: No Hx Alcohol Use: No Alcohol type: wine alcohol intake frequency: a few times a month Hx Substance Use: No substance use type: does not use Physical Exam Vital Signs Last Vital Signs Temp 36.2 C L 05/29/23 07:25 Pulse 67 05/29/23 07:58 Resp 20 05/29/23 07:25 BP 134/82 05/29/23 07:25 Pulse Ox 93 05/29/23 07:25 O2 Del Method Room Air 05/29/23 07:59 O2 Flow Rate 2 05/27/23 15:15 Testing Laboratory Results 05/29/23 04:13 05/29/23 04:13 PT 12.4 Seconds (9.0-12.0) H 05/27/23 10:16 INR 1.1 (0.9-1.1) 05/27/23 10:16 Urine Color Dark Yellow 05/27/23 15:08 Urine Appearance Clear (Clear) 05/27/23 15:08 Urine pH 6.5 (4.5-7.5) 05/27/23 15:08 Ur Specific [place] 1.012 (1.000-1.030) 05/27/23 15:08 Urine Protein Negative (Negative) 05/27/23 15:08 Urine Glucose (UA) Negative (Negative) 05/27/23 15:08 Urine Ketones Negative (Negative) 05/27/23 15:08 Urine Nitrite Negative (Negative) 05/27/23 15:08 Ur Leukocyte Esterase Negative (Negative) 05/27/23 15:08 05/27/23 10:16 Aerobic Blood Culture - Preliminary Blood No growth in Aerobic bottle after 24 hours. Anaerobic Blood Culture - Preliminary No growth in Anaerobic bottle after 24 hours. 05/27/23 10:16 Aerobic Blood Culture - Preliminary Blood No growth in Aerobic bottle after 24 hours. Anaerobic Blood Culture - Preliminary No growth in Anaerobic bottle after 24 hours. Electrocardiogram Date: 05/27/23 DICTATED BY:Aleks Morales MD Test Reason : Blood Pressure : / mmHG Vent. Rate : 076 BPM Atrial Rate : 076 BPM P-R Int : 178 ms QRS Dur : 078 ms QT Int : 390 ms P-R-T Axes : -20 004 -40 degrees QTc Int : 438 ms Sinus rhythm with Premature supraventricular complexes and with occasional Premature ventricular complexes Nonspecific ST and T wave abnormality Abnormal ECG When compared with ECG of 27-MAY-2023 08:21, (unconfirmed) Premature supraventricular complexes are now Present Sinus rhythm is no longer with ventricular escape complexes ST now depressed in Inferior leads Confirmed by Aleks Morales ([id number]) on 05/27/2023 5:58:07 PM Chest X-Ray Date: 05/27/23 XR chest 1V portable CLINICAL HISTORY: tachypnea TECHNIQUE: Single frontal radiograph of the chest was obtained. Comparison: Comparison is made to CT chest 06/06/2021 FINDINGS: No lines and tubes are seen. The aorta is tortuous. The remainder of the cardiomediastinal silhouette is unremarkable. Reticular interstitial opacities are seen. Postsurgical changes at the left lung base are unchanged. No evidence of pleural effusion or pneumothorax. IMPRESSION: No acute chest disease. Other Testing IMPRESSION: No acute abnormalities are seen, in particular there is diverticulosis without evidence of diverticulitis in this patient with left lower quadrant pain. No f ecal impaction is noted.
--- NOTE | 2023-05-29 08:36 | Gastrointestinal Consultation ---
Date of Consultation May 29, 2023 Assessment & Plan (1) Lower abdominal pain: (2) Constipation: (3) Bright red rectal bleeding: (4) Eosinophilic esophagitis: Plan Patient is a 77 y.o. male with a history of prostate CA, AFib on chronic anticoagulation and EoE admitted with orthostatic hypotension and rectal bleeding in the setting of acute constipation. H&H is stable. Most likely hemorrhodal bleeding. -No plan for invasive GI work up at this time. -Schedule outpatient colonoscopy. -Start MiraLAX 1 cap BID in 8 ounces of noncarbonated beverage with dose titration as per bowel response. -Continue Pantoprazole 40 mg daily. -Outpatient esophageal manometry to evaluate atypical chest pain, as possible esophageal spasms. -Supportive care per primary team. Thank you for allowing us to participate in the care of this patient. If you have any questions or concerns, please do not hesitate to contact us. Supervising Physician Co-Signing Physician Notes I saw the patient and agree with the findings as documented by LI Arevalo History of Present Illness Reason for Consultation: Orthostasis, Blood in BM Requesting Physician: Dr. Valdez Attending Physician: Maycol Valdez History of Present Illness Patient is a 77 y.o. male with a history of prostate CA, atrial fibrillation, and EoE on chronic anticoagulation admitted yesterday with orthostatic hypotension in the setting of acute constipation and bright red blood per rectum. He has been tolerating a clear liquid diet. H&H has remained stable from admission and was noted to be 11.4/33.7. He denies any nausea or vomiting, abdominal pain, or significant bloating. Reports borborygmi. States he did pass some bright red blood this morning. Has only had one bowel movement over the past 2 weeks prior to admission. In addition, there was concern for esophageal spasms due to noncardiac chest pain. Has had an upper endoscopy by Dr. Huffman within the past year. Allergies Allergy/AdvReac Type Severity Reaction Status Date / Time Penicillins Allergy Severe Hives Verified 05/27/23 08:43 morphine AdvReac Severe Anaphylaxis Verified 05/27/23 08:43 phenytoin [From Dilantin] AdvReac Severe Anaphylaxis Verified 05/27/23 08:43 Home Medications Medication Instructions Recorded Confirmed Type apixaban 5 mg tablet (Eliquis) 5 mg PO BID 09/05/20 05/27/23 History loratadine 10 mg tablet (Claritin) 10 mg PO QAM 09/05/20 05/27/23 History cyanocobalamin (vitamin B-12) 500 500 mcg PO QAM 06/06/21 05/27/23 History mcg tablet (Vitamin B-12) fluticasone propionate 50 1 spray intranasal BID 06/26/22 05/27/23 History mcg/actuation nasal spray,suspension latanoprost 0.005 % eye drops 1 drp ophthalmic (eye) HS 07/10/22 05/27/23 History pantoprazole 40 mg tablet,delayed 40 mg PO QAM EOE #90 tabs 07/21/22 05/27/23 Rx release (Protonix) cyclobenzaprine 5 mg tablet 5 mg PO TID PRN muscle spasm #30 08/26/22 05/27/23 Rx tabs atorvastatin 10 mg tablet 10 mg PO HS #90 tabs 09/22/22 05/27/23 Rx magnesium citrate 100 mg tablet 50 mg PO DAILY 11/20/22 05/27/23 History amiodarone 200 mg tablet 100 mg PO QPM 04/09/23 05/27/23 History lisinopril 2.5 mg tablet 2.5 mg PO QAM #90 tabs 05/15/23 05/27/23 Rx sennosides 8.6 mg tablet (Senna 8.6 mg PO BID PRN constipation #14 05/17/23 05/27/23 Rx Lax) tabs albuterol sulfate 90 mcg/actuation 1 - 2 puff inhalation .Q4-6H PRN 05/27/23 05/27/23 History aerosol inhaler (ProAir HFA) shortness of breath or wheezing budesonide-formoterol HFA 160 1 puff inhalation BID 05/27/23 05/27/23 History mcg-4.5 mcg/actuation aerosol inhaler (Symbicort) Patient History Medical History (Updated 05/29/23 @ 08:42 by LI Harding) Acute constipation Asthma well controlled per pt > res inh use every few mos Atrial fibrillation dx several yrs ago > on eliquis bid .Previously followed with Dr. Degroot in [place] > no pacer Bright red rectal bleeding Encounter for pre-operative examination Eosinophilic esophagitis Malignant neoplasm of prostate just radiation > resolved On anticoagulant therapy eliquis bid Organic impotence Orthostatic hypotension Seizure 12 yrs ago > result of severe asthma attack > one time incident Severe protein-calorie malnutrition SIRS (systemic inflammatory response syndrome) Surgical History H/O cataract extraction bilat H/O endoscopy H/O hernia repair H/O vasectomy History of cardioversion x4--for a fib History of colonoscopy History of esophagogastroduodenoscopy (EGD) last 06/2021 @ [facility] History of exploratory laparotomy History of lung biopsy History of right knee joint replacement History of tonsillectomy History of tooth extraction Hx of basal cell carcinoma excision Family History Mother , age 82 of cancer Breast cancer Myocardial infarction Father , age 84 of heart issues Myocardial infarction Brother Myocardial infarction Sister Cerebellar ataxia Denies family history of Ovarian cancer Prostate cancer Colorectal cancer Social History Smoking Status: Never smoker Second Hand Exposure: No; Do You Dip or Chew Tobacco: No; Tobacco Cessation Education Requested by Patient: No Hx Alcohol Use: No Hx Substance Use: No Preferred Language: Hungarian Communication Ability: Effective Visual Impairment: No Limitations Hearing Ability: Use of Hearing Aid Hand Mounter Required: No Beliefs That Will Affect Care: None marital status: Current Living Situation: Spouse current occupational status: employed 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 How many Children do You have: 1 Other Information That Helps Us Care for You: No Feels Safe at Home: Yes Safety Concerns: Feels Safe At This Time Childhood Exposure to Second-Hand Smoke: Yes Diet: regular Diet Comment: regular caffeine: Yes during the past year weight has: remained stable Dental Care, Regularly: No Physical Activity Frequency: Daily Seatbelt Use: always Sunscreen Use: No Assistive Devices: Cane and Walker Review of Systems Constitutional: + fatigue and + weakness Respiratory: no dyspnea and no dyspnea on exertion Cardiovascular: no chest pain and no palpitations Gastrointestinal: as per Subjective / HPI Physical Exam Constitutional: WD/WN, vitals as above Eyes: EOM intact bilaterally Neck: normal visual inspection Respiratory: normal respiratory effort, lungs clear to auscultation Cardiovascular: Rate/Rhythm: regular rate and regular rhythm Gastrointestinal (Abdomen): Inspection/Auscultation: abdomen normal to inspection and normal bowel sounds; abdomen not distended Percussion/Palpation: + abdomen tender and abdomen soft; no guarding and abdomen not rigid Skin: no rashes, warm and dry Results & Data Vital Signs (Past 12 Hours) Vital Signs Temp Pulse Pulse Resp BP Pulse Ox O2 Del Method 05/29/23 07:59 Room Air 05/29/23 07:58 67 05/29/23 07:25 36.2 C L 51 L 20 134/82 93 Room Air 05/29/23 03:05 36.3 C L 68 20 126/71 91 Room Air 05/28/23 22:56 55 L 05/28/23 22:42 36.5 C 20 95 Room Air Diagnostic Findings Laboratory Results WBC 3.34 K/ul (4.8-10.8) L 05/29/23 04:13 RBC 3.29 M/uL (4.70-6.10) L 05/29/23 04:13 Hgb 11.4 g/dl (14.0-18.0) L 05/29/23 04:13 Hct 33.7 % (42.0-52.0) L 05/29/23 04:13 MCV 102.4 fL (80.0-100.0) H 05/29/23 04:13 MCH 34.7 pg (25.0-34.0) H 05/29/23 04:13 MCHC 33.8 g/dL (32.0-36.0) 05/29/23 04:13 RDW Std Deviation 47.5 fL (36.4-46.3) H 05/29/23 04:13 RDW Coeff of Janet 12.6 % (11.5-14.5) 05/29/23 04:13 Plt Count 150 K/uL (130-400) 05/29/23 04:13 MPV 10.1 fL (9.4-12.4) 05/29/23 04:13 Immature Gran % (Auto) 0.2 % 05/28/23 03:49 Neut % (Auto) 67.6 % 05/28/23 03:49 Lymph % (Auto) 22.1 % 05/28/23 03:49 [place] % (Auto) 9.9 % 05/28/23 03:49 Eos % (Auto) 0.0 % 05/28/23 03:49 Baso % (Auto) 0.2 % 05/28/23 03:49 Reticulocyte % (Auto) 0.8 % (0.5-2.0) 05/28/23 03:49 Neut # (Auto) 2.93 K/uL (1.40-6.50) 05/28/23 03:49 Lymph # (Auto) 0.96 K/uL (1.20-3.40) L 05/28/23 03:49 [place] # (Auto) 0.43 K/uL (0.11-0.59) 05/28/23 03:49 Eos # (Auto) 0.00 K/uL (0.00-0.50) 05/28/23 03:49 Baso # (Auto) 0.01 K/uL (0.00-0.20) 05/28/23 03:49 Reticulocyte # 0.03 10^6/uL (0.02-0.10) 05/28/23 03:49 Immature Gran # (Auto) 0.01 K/uL (0.01-0.20) 05/28/23 03:49 PT 12.4 Seconds (9.0-12.0) H 05/27/23 10:16 INR 1.1 (0.9-1.1) 05/27/23 10:16 Sodium 139 mmol/L (136-145) 05/29/23 04:13 Potassium 3.9 mmol/L (3.5-5.1) 05/29/23 04:13 Chloride 107 mmol/L (98-107) 05/29/23 04:13 Carbon Dioxide 27 mmol/L (21-32) 05/29/23 04:13 Anion Gap 5 (3-11) 05/29/23 04:13 BUN 9 mg/dl (6-23) 05/29/23 04:13 Creatinine 1.00 mg/dl (0.6-1.4) 05/29/23 04:13 Est Cr Clr Drug Dosing 50.4 ml/min 05/29/23 04:13 Est GFR ( Amer) 85.0 ml/min 05/29/23 04:13 Est GFR (Non-Af Amer) 73.3 ml/min 05/29/23 04:13 BUN/Creatinine Ratio 9.0 (10-20) L 05/29/23 04:13 Glucose 84 mg/dl (70-99(Fasting)) 05/29/23 04:13 Lactate 1.2 mmol/L (0.4-2.0) 05/27/23 10:16 Calcium 7.7 mg/dl (8.6-10.3) L 05/29/23 04:13 Magnesium 2.0 mg/dl (1.7-2.4) 05/27/23 10:16 Iron 11 mcg/dl (35-175) L 05/28/23 03:49 TIBC 232 mcg/dl (250-450) L 05/28/23 03:49 Unsaturated IBC 221 mcg/dl (155-355) 05/28/23 03:49 Transferrin % Sat 5 % (20-50) L 05/28/23 03:49 Ferritin 125.8 ng/ml (8-388) 05/28/23 03:49 Total Bilirubin 0.5 mg/dl (0.2-1.0) 05/27/23 10:16 AST 22 U/L (13-39) 05/27/23 10:16 ALT 18 U/L (7-52) 05/27/23 10:16 Alkaline Phosphatase 98 U/L (34-104) 05/27/23 10:16 Lactate Dehydrogenase 154 U/L (86-244) 05/28/23 03:49 Troponin I High Sens 7.9 pg/ml (0-20) 05/27/23 10:16 C-Reactive Protein 3.02 mg/dl (0-0.5) H 05/28/23 03:49 Total Protein 6.8 gm/dl (6.0-8.3) 05/27/23 10:16 Albumin 4.2 gm/dl (3.4-5.0) 05/27/23 10:16 Globulin 2.6 gm/dl (2.5-4.0) 05/27/23 10:16 Albumin/Globulin Ratio 1.6 (0.9-2) 05/27/23 10:16 Lipase 41 U/L (11-82) 05/27/23 10:16 Vitamin B12 1236 pg/ml (180-914) H 05/28/23 03:49 Folate > 22.30 ng/ml (>5.38) 05/28/23 03:49 Procalcitonin 0.31 ng/ml (0-0.5) 05/27/23 10:17 TSH 0.968 uIu/ml (0.300-4.500) 05/27/23 10:16 Random Cortisol 11.50 mcg/dl 05/27/23 10:16 Urine Color Dark Yellow 05/27/23 15:08 Urine Appearance Clear (Clear) 05/27/23 15:08 Urine pH 6.5 (4.5-7.5) 05/27/23 15:08 Ur Specific [place] 1.012 (1.000-1.030) 05/27/23 15:08 Urine Protein Negative (Negative) 05/27/23 15:08 Urine Glucose (UA) Negative (Negative) 05/27/23 15:08 Urine Ketones Negative (Negative) 05/27/23 15:08 Urine Blood Negative (Negative) 05/27/23 15:08 Urine Nitrite Negative (Negative) 05/27/23 15:08 Urine Bilirubin Negative (Negative) 05/27/23 15:08 Urine Urobilinogen Negative (Negative) 05/27/23 15:08 Ur Leukocyte Esterase Negative (Negative) 05/27/23 15:08 SARS-CoV-2 (PCR) NEGATIVE (Negative) 05/27/23 17:26 Impressions Abdomen/Pelvis CT 05/27/23 10:01 CT abd pelvis wo con CLINICAL HISTORY: hypotension, LLQ abd pain, constipation TECHNIQUE: Helical axial images of the abdomen and pelvis were obtained. Automated dose lowering techniques and/or adjustment according to patient size were utilized for this exam. This exam was performed without intravenous contrast. CT DOSE: 429.87 mGy.cm COMPARISON: Comparison is made to CT abdomen pelvis 05/17/2023 FINDINGS: Lower chest: Bronchial wall thickening is seen in the lower lungs as visualized. Liver: Hepatic cysts are seen. Gallbladder and biliary tree: Layering radiodense material is seen in the dependent portion of the likely representing sludge. No intra- or extrahepatic biliary ductal dilation. Pancreas: Unremarkable, no focal lesions. Spleen: Unremarkable. Adrenals: Unremarkable. Kidneys and ureters: Unremarkable. Bladder: Diffuse homogeneous wall thickening is seen. Reproductive organs: Prostatic calcifications are seen which may represent prior hemorrhage or granulomatous disease. Bowel: Diverticulosis is seen without diverticulitis. The appendix is normal. Lymph nodes Retroperitoneal: Unremarkable. Pelvic: Unremarkable. Mesenteric: Unremarkable. Peritoneum: Normal. Vessels: Atherosclerotic calcifications are seen. Abdominal wall: Right hernia repair changes are seen. There is a left inguinal hernia containing loops of bowel which do not appear distended. Bones: Degenerative changes in the visualized spine. IMPRESSION: No acute abnormalities are seen, in particular there is diverticulosis without evidence of diverticulitis in this patient with left lower quadrant pain. No f ecal impaction is noted. ACT 112: Negative or not required by law. Electronically signed by: Reyes Turcios M.D. 05/27/2023 10:34 AM Chest X-Ray 05/27/23 13:27 XR chest 1V portable CLINICAL HISTORY: tachypnea TECHNIQUE: Single frontal radiograph of the chest was obtained. Comparison: Comparison is made to CT chest 06/06/2021 FINDINGS: No lines and tubes are seen. The aorta is tortuous. The remainder of the cardiomediastinal silhouette is unremarkable. Reticular interstitial opacities are seen. Postsurgical changes at the left lung base are unchanged. No evidence of pleural effusion or pneumothorax. IMPRESSION: No acute chest disease. ACT 112: Negative or not required by law. Electronically signed by: Reyes Turcios M.D. 05/27/2023 2:01 PM PG Care Time/CCT Total # of Minutes Spent Total Time Spent with Patient: Total time spent is greater than 50% in coordination of care (as documented) at patient's floor/unit and/or counseling patient: Coding Level of Care Code 39843 INT INP/OBS CARE 3/75MIN Diagnoses Lower abdominal pain R10.30 Constipation K59.00 Constipation type: unspecified constipation type Bright red rectal bleeding K62.5 Eosinophilic esophagitis K20.0 (2) Constipation Constipation type: unspecified constipation type Qualified Code(s): K59.00 - Constipation, unspecified
[2023-05-29] MEDS: ACETAMINOPHEN 325 MG TAB PO PRN (09:58)
[2023-05-29] MEDS: APIXABAN 5 MG TABLET PO SCH (09:59)
[2023-05-29] MEDS: CYANOCOBALAMIN (B-12) 500 MCG TABLET PO SCH (09:59)
[2023-05-29] MEDS: FLUTICASONE PROPIONATE NA SPR 16 GM BTL SCH (09:59)
[2023-05-29] MEDS: PANTOprazole 40 MG TAB PO SCH (09:59)
[2023-05-29] MEDS: FLUTICASONE/VILANTEROL 200/25MCG 14 PUFFS/INHALER INH SCH (09:59)
[2023-05-29] MEDS: POLYETHYLENE (MIRALAX) 17 GM PACK PO SCH ×2 (10:03→15:05)
[2023-05-29] MEDS: DOCUSATE SODIUM/SENNA 50/8.6MG TAB PO SCH (10:03)
--- NOTE | 2023-06-03 23:49 | Discharge Summary ---
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 He denies any new medications changes. No nausea, vomiting, hematochezia or melena. Never had problems with constipation previously. He notes 3 weeks of worsening abdominal pain associated with orthostatic dizziness, worsening constipation and no bowel movement for the last 3 weeks. Prior to this he was relatively regular with a bowel movement every day and not requiring laxatives. He was seen in the ER on May 17 and started on Senna without much effect. He has also over the counter colace, MiraLAX, suppositories and an enema. In the ER he was given a milk molasses enema causing a large bowel movement with associated hypotension and diaphoresis. He denies any fever or chills. No history of diverticulitis. Last colonoscopy not completely known by patient or his but possibly 4-5 years ago - thinks this was done in [place]. No prior problems with orthostatic dizziness but this has progressed over the last 3 weeks. He continues to take lisinopril (last took this morning). His notes significant weight loss and progression of his neurological condition with mainly worsening balance and peripheral neuropathy over the last 8 months. He also notes history of paroxysmal atrial fibrillation with recent failed ablation. He continues to take amiodarone 100mg pO daily. He is visibly short of breath but denies this when I ask his. No chest pain. He reports he only gets short of breath when he is in atrial fibrillation. Principal Diagnosis acute constipation Discharge Exam Constitutional: well developed and + cachectic; no acute distress Eyes: PERRL, conjunctivae normal, anicteric sclerae ENMT: Mouth: + dry oral mucous membranes Respiratory: Auscultation: lungs clear to auscultation bilaterally; breath sounds present, no diminished lung sounds, no crackles, no rales, no rhonchi and no wheezes Cardiovascular: Rate/Rhythm: regular rate and + irregularly irregular Heart Sounds: no murmur Extremities: normal capillary refill; no calf tenderness and no pedal edema Gastrointestinal (Abdomen): normal bowel sounds, soft, nontender, no hepatospl enomegaly Musculoskeletal: no cyanosis or clubbing, extremities motor strength 5/5 Skin: no rashes, warm and dry Neurologic: moves all extremities, awake and + confused Psychiatric: Orientation: alert, oriented to person and oriented to place; + not oriented to time Genitourinary: no CVA tenderness Discharge Data Allergies Allergy/AdvReac Type Severity Reaction Status Date / Time Penicillins Allergy Severe Hives Verified 05/27/23 08:43 morphine AdvReac Severe Anaphylaxis Verified 05/27/23 08:43 phenytoin [From Dilantin] AdvReac Severe Anaphylaxis Verified 05/27/23 08:43 Consultations 05/27/23 13:30 ED Decision to Admit Stat 05/28/23 13:27 Consult Gastroenterology Routine Procedures Performed Operation Date: 05/29/23 16:30 <No data on this case meets the specified criteria> Ordered Studies 05/27/23 10:01 CT abd pelvis wo con Stat Hospital Course (1) Acute constipation: Sudden change in bowel habit warrants outpatient colonoscopy although will defer this to his outpatient providers given progressive neurological disease. Combination of orthostasis with new onset constipation with ill-defined ongoing neurological disease (possible CANVAS) suggests autonomic dysfunction - consider neruology consult. Initial treatment for constipation irregardless is laxatives and will start Miralax TID with Senna/docusate BID - milk molasses enema effective in the ER Iron studies point towards iron def. anemia However Anesthesia did not clear patient due to his hypotension on admission and preferred to schedule outpatient endoscopy/ esophageal manometry as an outpatient (2) Orthostatic hypotension: Suspect autonomic dysfunction as above in setting of vagal stimulation from large bowel movement, anti-hypertensive use and suspect underlying autonomic dysfunction as above. Stop lisinopril. IV fluids overnight. (3) SIRS (systemic inflammatory response syndrome): SIRS criteria met with low WBC and elevated HR without source of infection to suggest sepsis - abdominal pain resolved following large bowel movement in the ER. Procalcitonin and Lactate normal, intermittent hypotensiondoes not appear to be infection related. (4) Macrocytosis without anemia: B12, folate, retic count, LDH with AM labs (5) Severe protein-calorie malnutrition: Consult dietary (6) Limb ataxia: PT/OT (7) Hereditary peripheral neuropathy: (8) Eosinophilic esophagitis: Continue pantoprazole, no current issues with swallowing (9) Atrial fibrillation: Paroxysmal, continue amiodarone hold Eliquis for anticoagulation due to risk of bleeding. Total Time Total Time Spent Total Time Spent (In Minutes): 32 Discharge Plan Discharge Items Patient Disposition: Home - Self-Care Reason For Visit: CONSTIPATION, ORTHOSTATIC HYPOTENSION Discharge Diagnosis: As above. Activity: Resume your previous activity Non-emergency contact: Primary Care Provider Call non-emergency contact if: you have any medication questions Follow-up/Referrals: Dorian Cardenas III, CRNP [Primary Care Provider] - 06/09/23 9:15 am Diet: Low Fiber Addtl Attending Provider Instructions: recommend followup with PCP in 1-2 weeks recommend followup with GI for outpatient colonscopy and esophageal manometry Pending Studies at Discharge: No Stand-Alone Forms: [employer], Smoking Cessation Medications and DC Order Prescriptions: New polyethylene glycol 3350 [Miralax] 17 gram Powder In Packet 17 g PO BID PRN (Reason: constipation) Qty: 30 2RF ferrous sulfate 325 mg (65 mg iron) tablet 325 mg PO MOWEFR Qty: 15 0RF Continued pantoprazole [Protonix] 40 mg tablet,delayed release (DR/EC) 40 mg PO QAM Qty: 90 3RF atorvastatin 10 mg tablet 10 mg PO HS Qty: 90 3RF loratadine [Claritin] 10 mg tablet 10 mg PO QAM amiodarone 200 mg tablet 100 mg PO QPM fluticasone propionate 50 mcg/actuation spray,suspension 1 spray intranasal BID Rx Instructions: administer into each nostril cyclobenzaprine 5 mg tablet 5 mg PO TID PRN (Reason: muscle spasm) Qty: 30 1RF magnesium citrate 100 mg tablet 50 mg PO DAILY cyanocobalamin (vitamin B-12) [Vitamin B-12] 500 mcg Tablet 500 mcg PO QAM sennosides [Senna Lax] 8.6 mg tablet 8.6 mg PO BID PRN (Reason: constipation) Qty: 14 0RF albuterol sulfate [ProAir HFA] 90 mcg/actuation HFA aerosol inhaler 1 - 2 puff inhalation .Q4-6H PRN (Reason: shortness of breath or wheezing) budesonide-formoterol [Symbicort] 160-4.5 mcg/actuation HFA aerosol inhaler 1 puff inhalation BID latanoprost 0.005 % Drops 1 drp OPHTHALMIC (EYE) HS Held Eliquis 5 mg tablet 5 mg PO BID Hold Instructions: Resume on 06/12/23. hold until cleared by PCP Discontinued lisinopril 2.5 mg tablet 2.5 mg PO QAM Qty: 90 3RF Discharge Orders: Discharge Order (Routine); Ordered 05/29/23 Ordered By: Maycol Valdez Admission Data Admit Date/Time: 05/28/23 13:27 Attending Provider: Maycol Valdez Admit Provider: Gucci Moody Primary Care Provider: Dorian Cardenas III Other Providers: Gucci Moody ; Jovany Perkins ; Antolin Escalera ; Krys Hoffman ; Hortencia Easton ; Ya Nielson ; Ada Alves ; Shiv Huffman ; Haider Green ; Kathi Francois ; Giovanni Mc ; Rhett Nielson ; Jaz Walls ; Lisbeth Peter ; Malathi Mortensen ; Danica Nguyen ; Juvenal Joyce ; Hussain [place] ; Hamilton Person ; Heidy Vasquez ; Kermit Duran Jr Other Interventions: Discharge Summary Assessment (RN) Last Done: 05/29/23 18:01 Coding Level of Care Code 97181 INP/OBS DISCH >30 MIN Diagnoses Acute constipation K59.00 Orthostatic hypotension I95.1 SIRS (systemic inflammatory response syndrome) R65.10 Macrocytosis without anemia D75.89 Severe protein-calorie malnutrition E43 Limb ataxia R27.0 Hereditary peripheral neuropathy G60.9 Eosinophilic esophagitis K20.0 Atrial fibrillation I48.91
== END 2023-05-29 18:49 | disposition home or self-care (01) | DRG 391 ==
LOC: EDINP 09:51 → ED 09:51 → SUATTDRO 13:58 → 2W 19:22

== ENCOUNTER 2024-07-27 21:05 | Inpatient (IN) ==
--- NOTE | 2024-07-27 21:28 | Emergency Department Note ---
Impression & Plan Acute hypoxemic respiratory failure, Asthma exacerbation, Acute interstitial pneumonia, Acute hyponatremia ED Provider Note NAME: ERNIE RODRIGUEZ AGE: 78 SEX: M : 1945 ARRIVES VIA: Walk-In INFORMANT: Patient, ED PROVIDER(S): Fredis Ugalde MD CHIEF COMPLAINT: Shortness of breath MEDICAL DECISION MAKING: Patient presents due to concern for shortness of breath. IV was established and blood work was obtained. Patient was ordered IV Rocephin and p.o. azithromycin steroids as well as DuoNeb treatments. Patient's blood work shows a normal white count hemoglobin 12.7 the normal kidney function. The patient's platelet count is 428. Patient's kidney function is unremarkable procalcitonin is not elevated. Urinalysis and BioFire negative. Patient did receive IV fluids. Patient patient does have improvement in his white blood cell count. The patient's VBG does show pCO2 72 with a VBG pH of 7.1. Sodium 133. Bicarb is normal. Patient is not confused at the bedside. Inpatient service did order an ABG. Patient was noted to be borderline hypoxic in the high 80s. The patient was placed on nasal cannula. Critical Care: I have personally spent 35 minutes of critical care time in direct management of this patient. This includes bedside care, interpretation of diagnostic studies, and testing, discussion with consultants, patient, and family members, and other require inpatient management activities. This 35 minutes is in excess of all separately billable procedures. Discussion w/ other healthcare providers: None Prior /Outside records reviewed: None Differential diagnosis: Reactive airway disease, pneumonia, pneumothorax, COPD, CHF, ACS, pulmonary embolism, musculoskeletal, GERD as well as other pathologies were considered. Diagnostics, as interpreted by me: ECG: Normal sinus rhythm, rate of 71, normal intervals, normal axis. Cardiac monitoring: An order was placed for continuous cardiac monitoring. The monitor shows a rate of 88 with sinus rhythm. Patient was placed on pulse oximetry Medical decision rules: None Imaging studies: I informally interpreted the patient's chest x-ray shows concern for interstitial pneumonia with formal report to follow. HPI: Patient presents due to concern for shortness of breath. The patient reportedly has had some associated cough. Patient denies any chest pains no lower extremity swelling. The patient states that he does have a history of asthma but he thinks that this feels more like his pneumonia which she has had prior. Patient was seen recently and states that he was tried on a new medication but has not noticed any significant improvement. The patient has been using his inhalers at home. Patient states that he has had cough with productive thick discolored mucus. Patient denies any active smoking history. No leg swelling or calf pain. No history of DVT or PE. PAST MEDICAL HISTORY: See Below PAST SURGICAL HISTORY: See Below SOCIAL HISTORY: See Below HOME MEDICATIONS: See Below ALLERGIES: See Below VITALS: See Below PHYSICAL EXAMINATION: GENERAL: NAD, non-toxic. EYE EXAM: Normal conjunctiva. PERRL, no anisocoria and EOM's grossly intact w/o pain. OROPHARYNX: Moist mucus membranes, grossly normal dentition. NECK: Trachea midline, no stridor. Supple, no nuchal rigidity, no adenopathy, non-tender. No signs of meningismus. FROM of the neck with good chin to chest and neck extension. LUNGS: Wheezing throughout most prominent in the end expiratory phase, normal chest wall mechanics. HEART: NSR, no MRG. ABDOMEN: Abdomen soft, non-tender, no masses, no rebound or guarding. BACK: No CVA TTP. SKIN: No rashes and no bruising. UPPER EXTREMITIES: Upper extremities are grossly normal. LOWER EXTREMITIES: Grossly normal, no edema. NEURO EXAM: A&O x3, cranial nerves II-XII grossly intact, normal speech, moves all 4 extremities. Past Med/Surg History Problem List (Updated 07/28/24 @ 20:50 by Fredis Ugalde MD) Acute hyponatremia (Acute) Acute interstitial pneumonia (Acute) Asthma exacerbation (Acute) Acute hypoxemic respiratory failure (Acute) Asthma exacerbation CAP (community acquired pneumonia) LOVELL (dyspnea on exertion) Muscle spasticity On amiodarone therapy Fine motor impairment Hematochezia Mild left ventricular systolic dysfunction Lightheadedness Macrocytosis without anemia Cough Vitamin D deficiency Hereditary peripheral neuropathy Nutritional deficiency Weight loss Sensory polyneuropathy Limb ataxia Ataxic gait Aortic regurgitation Pulmonic regurgitation Tricuspid regurgitation Mitral regurgitation Normal left ventricular systolic function Fatigue Paroxysmal atrial fibrillation Encounter for monitoring anti-arrhythmic therapy Iron deficiency Vitamin B12 deficiency Shoulder pain, right Frequent falls Balance disorder Dyslipidemia Esophageal obstruction due to food impaction (Acute) Vertigo Left shoulder pain Orthostatic hypotension History of prostate cancer 2009- radiation therapy Difficulty swallowing (Acute) Chronic anticoagulation Eosinophilic esophagitis Asthma (Acute) Atrial fibrillation (Acute) on eliquis daily--follows w/ Dr Celis 05/27/23 Organic impotence (Acute) Medical History Chest pain Bright red rectal bleeding Lower abdominal pain Acute dehydration Pneumonia recently hospitalized at [facility]- 05/2023; resolved Glaucoma Chronic cough COPD (chronic obstructive pulmonary disease) Severe protein-calorie malnutrition Seizure 12 yrs ago > result of severe asthma attack > one time incident Malignant neoplasm of prostate just radiation > resolved Surgical History H/O endoscopy History of lung biopsy History of cardioversion x4--for a fib History of esophagogastroduodenoscopy (EGD) last 06/2021 @ [facility] History of colonoscopy Hx of basal cell carcinoma excision History of tooth extraction History of tonsillectomy History of exploratory laparotomy H/O cataract extraction bilat History of right knee joint replacement H/O hernia repair H/O vasectomy Family History Mother , age 82 of cancer Breast cancer Myocardial infarction Father , age 84 of heart issues Myocardial infarction Brother Myocardial infarction Sister Age: 74 Cerebellar ataxia with neuropathy and bilateral vestibular areflexia syndrome Denies family history of Ovarian cancer Prostate cancer Colorectal cancer Social History Smoking Status: Never smoker Second Hand Exposure: No; Do You Dip or Chew Tobacco: No; Hx Alcohol Use: Yes Alcohol type: wine Alcohol Intake Frequency: Monthly or Less Hx Substance Use: No Preferred Language: Burkinan Communication Ability: Effective Communication Ability Comment: PASCUA YAQUI Visual Impairment: No Limitations Hearing Ability: Use of Hearing Aid Team Assembler Required: No Beliefs That Will Affect Care: None marital status: Current Living Situation: Spouse current occupational status: employed 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 How many Children do You have: 1 Feels Safe at Home: Yes Childhood Exposure to Second-Hand Smoke: Yes Diet: regular Diet Comment: regular caffeine: Yes during the past year weight has: remained stable Dental Care, Regularly: No Physical Activity Frequency: Daily Seatbelt Use: always Sunscreen Use: Yes Assistive Devices: Cane and Walker Allergies Allergies Allergy/AdvReac Type Severity Reaction Status Date / Time Penicillins Allergy Severe Hives Verified 07/26/24 13:54 morphine AdvReac Severe Anaphylaxis Verified 07/26/24 13:54 phenytoin [From Dilantin] AdvReac Severe Anaphylaxis Verified 07/26/24 13:54 Home Meds Home Medications Medication Instructions Recorded Confirmed loratadine 10 mg tablet (Claritin) 10 mg PO QAM 09/05/20 07/26/24 cyanocobalamin (vitamin B-12) 500 500 mcg PO QAM 06/06/21 07/26/24 mcg tablet (Vitamin B-12) fluticasone propionate 50 1 spray intranasal BID 06/26/22 07/26/24 mcg/actuation nasal spray,suspension latanoprost 0.005 % eye drops 1 drp ophthalmic (eye) HS 07/10/22 07/26/24 magnesium citrate 100 mg tablet 50 mg PO DAILY 11/20/22 07/26/24 albuterol sulfate 90 mcg/actuation 1 - 2 puff inhalation .Q4-6H PRN 05/27/23 07/26/24 aerosol inhaler (ProAir HFA) shortness of breath or wheezing cholecalciferol (vitamin D3) 125 125 mcg PO DAILY 06/15/23 07/26/24 mcg (5,000 unit) tablet (Vitamin D3) alfuzosin 10 mg tablet,extended 10 mg PO DAILY 07/26/24 release 24 hr Previous Rx's Medication Instructions Recorded polyethylene glycol 3350 17 gram 17 g PO BID PRN constipation #30 ea 05/29/23 oral powder packet (Miralax) budesonide-formoterol HFA 160 1 puff inhalation BID #10.2 grams 09/10/23 mcg-4.5 mcg/actuation aerosol inhaler (Symbicort) apixaban 5 mg tablet (Eliquis) 5 mg PO BID #180 tabs 11/04/23 amiodarone 200 mg tablet 200 mg PO QPM #90 tabs 03/16/24 cyclobenzaprine 10 mg tablet 10 mg PO BID PRN muscle spasm #90 03/30/24 tabs linaclotide 145 mcg capsule See Rx Instructions .Route 05/30/24 (Linzess) .COMPLEX #30 caps fluticasone furoate 100 1 inh inhalation Q24H #60 ea 07/26/24 mcg-vilanterol 25 mcg/dose inhalation powder (Breo Ellipta) pantoprazole 40 mg tablet,delayed 40 mg PO QAM EOE #90 tabs 07/28/24 release (Protonix) Results & Data (ED) Vital Signs Vital Signs - 24 hr 07/27/24 21:12 07/27/24 22:03 07/27/24 22:14 Temperature 36.5 C Temperature Source Oral Pulse Rate 69 70 Pulse Rate [Apical] 74 Respiratory Rate 22 24 Blood Pressure 141/96 H Blood Pressure [Left Arm] 153/95 H Blood Pressure Mean 111 Blood Pressure Mean [Left Arm] 114 Pulse Oximetry 93 99 Oxygen Delivery Method Room Air Nebulizer Sepsis Recent Fever Within 48 Hours No Sepsis New/Unexplained Change in Mental Status No Sepsis Action Taken by Nursing No Action Required 07/27/24 22:30 07/27/24 23:00 Temperature Temperature Source Pulse Rate 71 80 Pulse Rate [Apical] Respiratory Rate 20 24 Blood Pressure 142/84 H 131/86 Blood Pressure [Left Arm] Blood Pressure Mean 106 96 Blood Pressure Mean [Left Arm] Pulse Oximetry 98 98 Oxygen Delivery Method Room Air Room Air Sepsis Recent Fever Within 48 Hours Sepsis New/Unexplained Change in Mental Status Sepsis Action Taken by [facility] Medications Current Medication List: was personally reviewed by me Laboratory Data Attestation: I reviewed the patient's lab results. 07/28/24 05:38 07/28/24 05:38 Lab Results 07/27/24 07/27/24 07/27/24 Range/Units 21:29 22:11 23:10 WBC 9.94 (4.8-10.8) K/ul RBC 3.86 L (4.70-6.10) M/uL Hgb 12.7 L (14.0-18.0) g/dl Hct 37.8 L (42.0-52.0) % MCV 97.9 (80.0-100.0) fL MCH 32.9 (25.0-34.0) pg MCHC 33.6 (32.0-36.0) g/dL RDW Std Deviation 46.2 (36.4-46.3) fL RDW Coeff of Janet 13.1 (11.5-14.5) % Plt Count 428 H (130-400) K/uL MPV 8.5 L (9.4-12.4) fL Immature Gran % (Auto) 0.5 % Neut % (Auto) 72.1 % Lymph % (Auto) 12.7 % Randall % (Auto) 9.1 % Eos % (Auto) 5.2 % Baso % (Auto) 0.4 % Neut # (Auto) 7.17 H (1.40-6.50) K/uL Lymph # (Auto) 1.26 (1.20-3.40) K/uL Randall # (Auto) 0.90 H (0.11-0.59) K/uL Eos # (Auto) 0.52 H (0.00-0.50) K/uL Baso # (Auto) 0.04 (0.00-0.20) K/uL Immature Gran # (Auto) 0.05 (0.01-0.20) K/uL VBG pH 7.16 L (7.36-7.41) VBG pCO2 72 H (38-50) mmHg VBG pO2 46 mmHg VBG HCO3 26 mmol/L VBG O2 Saturation 73.1 % VBG Base Excess -4.5 mEq/L Sodium 133 L (136-145) mmol/L Potassium 4.4 (3.5-5.1) mmol/L Chloride 98 (98-107) mmol/L Carbon Dioxide 29 (21-32) mmol/L Anion Gap 6 (3-11) BUN 15 (6-23) mg/dl Creatinine 0.93 (0.6-1.4) mg/dl Est Cr Clr Drug Dosing 60.2 ml/min eGFR 85.10 BUN/Creatinine Ratio 16.1 (10-20) Glucose 81 (70-99(Fasting)) mg/dl Calcium 9.5 (8.6-10.3) mg/dl Total Bilirubin 0.5 (0.2-1.0) mg/dl AST 15 (13-39) U/L ALT 12 (7-52) U/L Alkaline Phosphatase 74 (34-104) U/L Total Protein 6.7 (6.0-8.3) gm/dl Albumin 4.0 (3.4-5.0) gm/dl Globulin 2.7 (2.5-4.0) gm/dl Albumin/Globulin Ratio 1.5 (0.9-2) Procalcitonin 0.39 (0-0.5) ng/ml Urine Color Yellow Urine Appearance Clear (Clear) Urine pH 7.0 (4.5-7.5) Ur Specific [place] 1.005 (1.000-1.030) Urine Protein Negative (Negative) Urine Glucose (UA) Negative (Negative) Urine Ketones Negative (Negative) Urine Blood Negative (Negative) Urine Nitrite Negative (Negative) Urine Bilirubin Negative (Negative) Urine Urobilinogen Negative (Negative) Ur Leukocyte Esterase Negative (Negative) Adenovirus (PCR) Not Detected (NotDetected) B. pertussis DNA (PCR) Not Detected (NotDetected) B.parapertussis DNA PCR Not Detected (NotDetected) C. pneumoniae DNA (PCR) Not Detected (NotDetected) Coronavirus OC43 (PCR) Not Detected (NotDetected) Coronavirus HKU1 (PCR) Not Detected (NotDetected) Coronavirus 229E (PCR) Not Detected (NotDetected) SARS-CoV-2 (PCR) Not Detected (NotDetected) Coronavirus NL63 (PCR) Not Detected (NotDetected) Human Metapneumovir PCR Not Detected (NotDetected) Influenza Type A (PCR) Not Detected (NotDetected) Influenza Type B (PCR) Not Detected (NotDetected) M. pneumoniae (PCR) Not Detected (NotDetected) Parainfluenza 1 (PCR) Not Detected (NotDetected) Parainfluenza 2 (PCR) Not Detected (NotDetected) Parainfluenza 3 (PCR) Not Detected (NotDetected) Parainfluenza 4 (PCR) Not Detected (NotDetected) RSV (PCR) Not Detected (NotDetected) Entero/Rhino (PCR) Not Detected (NotDetected) Administered Medications Albuterol (Albut/Ipratrop 3mg/0.5mg Neb 3 Ml Vial) 3 ml NEB Q6R [facility]; Protocol Stop: 08/27/24 00:59 Last Admin: 07/28/24 19:33 Dose: 3 ml Documented By: Admin: 07/28/24 13:12 Dose: 3 ml Documented By: [email or web address] Admin: 07/28/24 07:40 Dose: 3 ml Documented By: [id number] Admin: 07/28/24 01:54 Dose: 3 ml Documented By: LAURA Amiodarone HCl (Amiodarone 200 Mg Tab) 200 mg PO QPM JEREMIAS Stop: 08/27/24 00:55 Last Admin: 07/28/24 01:48 Dose: 200 mg Documented By: STEPHANIE Apixaban (Apixaban 5 Mg Tablet) 5 mg PO BID JEREMIAS Stop: 08/27/24 00:55 Last Admin: 07/28/24 08:12 Dose: 5 mg Documented By: Admin: 07/28/24 01:48 Dose: 5 mg Documented By: STEPHANIE Cyclobenzaprine HCl (Cyclobenzaprine Hcl 10 Mg Tab) 10 mg PO BID JEREMIAS Stop: 08/27/24 20:59 Last Admin: 07/28/24 20:16 Dose: 10 mg Documented By: HENRIQUE Doxycycline Hyclate (Doxycycline Hyclate 100 Mg Cap) 100 mg PO BID JEREMIAS Stop: 08/02/24 08:59 Last Admin: 07/28/24 08:12 Dose: 100 mg Documented By: EMANUEL Fluticasone Propionate (Fluticasone Propionate Na Spr 16 Gm Btl) 1 sprays NA BID JEREMIAS Stop: 08/27/24 08:59 Last Admin: 07/28/24 20:17 Dose: 1 sprays Documented By: Admin: 07/28/24 08:13 Dose: 1 sprays Documented By: EMANUEL Fluticasone/Vilanterol (Fluticasone/Vilanterol 100/25mcg 14 Puffs/Inhaler) 1 puffs INH QAM JEREMIAS Stop: 08/27/24 08:59 Last Admin: 07/28/24 08:13 Dose: 1 puffs Documented By: EMANUEL Methylprednisolone 60 mg/ (Syringe) 0.96 mls @ 1.5 mls/min IV Q12H JEREMIAS Stop: 08/27/24 08:59 Last Admin: 07/28/24 20:17 Dose: 1.5 mls/min Documented By: Admin: 07/28/24 08:11 Dose: 1.5 mls/min Documented By: EMANUEL Linaclotide (Linaclotide 145 Mcg Capsule) 145 mcg PO DAILY JEREMIAS Stop: 08/27/24 08:59 Last Admin: 07/28/24 08:12 Dose: 145 mcg Documented By: EMANUEL Loratadine (Loratadine 10 Mg Tab) 10 mg PO QAM JEREMIAS Stop: 08/27/24 08:59 Last Admin: 07/28/24 09:39 Dose: 10 mg Documented By: EMANUEL Pantoprazole Sodium (Pantoprazole 40 Mg Tab) 40 mg PO QAM JEREMIAS Stop: 08/27/24 08:59 Last Admin: 07/28/24 08:12 Dose: 40 mg Documented By: EMANUEL Tamsulosin HCl (Tamsulosin Hcl 0.4 Mg Cap) 0.4 mg PO DAILY JEREMIAS Stop: 08/27/24 08:59 Last Admin: 07/28/24 08:13 Dose: 0.4 mg Documented By: EMANUEL Discontinued Medications Albuterol (Albut/Ipratrop 3mg/0.5mg Neb 3 Ml Vial) 6 ml INH NOW STA Stop: 07/27/24 21:42 Last Admin: 07/27/24 22:00 Dose: 6 ml Documented By: MARCELLO Doxycycline Hyclate (Doxycycline Hyclate 100 Mg Cap) 100 mg PO NOW STA Stop: 07/27/24 21:43 Last Admin: 07/27/24 21:59 Dose: 100 mg Documented By: MARCELLO Ceftriaxone Sodium (Rocephin) 2,000 mg in 50 mls @ 100 mls/hr IV NOW STA Stop: 07/27/24 22:11 Last Infusion: 07/27/24 22:29 Dose: Infused Documented By: Admin: 07/27/24 21:59 Dose: 100 mls/hr Documented By: MARCELLO Sodium Chloride (Nss) 1,000 mls @ 999 mls/hr IV .Q1H1M ONE Stop: 07/27/24 22:42 Last Infusion: 07/27/24 23:01 Dose: Infused Documented By: Admin: 07/27/24 22:00 Dose: 999 mls/hr Documented By: MARCELLO Ioversol (Optiray 320 100ml) 100 ml IV ONCE ONE Stop: 07/28/24 03:00 Last Admin: 07/28/24 02:59 Dose: 93 ml Documented By: ROMULO Methylprednisolone (Methylprednisolone 125 Mg/2 Ml Vial) 125 mg IV NOW STA Stop: 07/27/24 21:42 Last Admin: 07/27/24 21:59 Dose: 125 mg Documented By: MARCELLO Imaging Data Radiologist's Impression: Chest X-Ray 07/27/24 21:41 Exam(s): XR CXR 1 VIEW EXAM: XR Chest, 1 View CLINICAL HISTORY: Reason for exam: Dyspnea. TECHNIQUE: Frontal view of the chest. COMPARISON: June 16, 2024 FINDINGS: Lungs: Reticular nodular increased densities throughout the right lung, new since previous. Consider pneumonia versus pulmonary edema. Pleural space: Unremarkable. No pneumothorax. Heart: The cardiac silhouette is mildly enlarged, similar to previous. Mediastinum: Unremarkable. Normal mediastinal contour. Bones/joints: Unremarkable. No acute fracture. Soft tissues: There are staple lines in the superior and lateral aspect of the left lung consistent with previous partial pneumonectomy, unchanged. IMPRESSION: 1. Reticular nodular increased densities throughout the right lung, new since previous. Consider pneumonia versus pulmonary edema. 2. The cardiac silhouette is mildly enlarged, similar to previous. Electronically signed by: Christian Chavez MD 07/28/24 01:09 AM Discharge Plan Visit Data Chief Complaint: Shortness of Breath/Dyspnea Stated Complaint: SOB, WEAKNESS, ED Provider: Fredis Ugalde Discharge Problem: Acute hypoxemic respiratory failure, Asthma exacerbation, Acute interstitial pneumonia, Acute hyponatremia Patient Disposition: Admitted As Inpatient Discharge Instructions Interventions: ED Discharge Assessment Last Done: 07/28/24 00:22 Discharge Problem: Asthma exacerbation Qualifiers: Asthma severity: mild Asthma persistence: unspecified Qualified Code(s): J 45.901 - Unspecified asthma with (acute) exacerbation
[2024-07-27 21:59] LABS: Basophils # (auto) 0.04 K/uL (0.00-0.20); Basophils % (auto) 0.4 %; Eosinophils # (auto) 0.52 K/uL (0.00-0.50); Eosinophils % (auto) 5.2 %; Hematocrit (blood only) 37.8 % (42.0-52.0); Hemoglobin 12.7 g/dl (14.0-18.0); Immature Granulocytes # (auto) 0.05 K/uL (0.01-0.20); Immature Granulocytes % (auto) 0.5 %; Lymphocytes # (auto) 1.26 K/uL (1.20-3.40); Lymphocytes % (auto) 12.7 %; Mean Corpuscular Hemoglobin 32.9 pg (25.0-34.0); Mean Corpuscular Hgb Conc 33.6 g/dL (32.0-36.0); Mean Corpuscular Volume 97.9 fL (80.0-100.0); Mean Platelet Volume 8.5 fL (9.4-12.4); Monocytes % (auto) 9.1 %; Neutrophils # (auto) 7.17 K/uL (1.40-6.50); Neutrophils % (auto) 72.1 %; Platelet Count 428 K/uL (130-400); RDW Coefficient of Variation 13.1 % (11.5-14.5); RDW Standard Deviation 46.2 fL (36.4-46.3); Red Blood Count 3.86 M/uL (4.70-6.10); White Blood Count 9.94 K/ul (4.8-10.8)
[2024-07-27] MEDS: methylPREDNISolone 125 MG/2 ML VIAL IV STA (21:59)
[2024-07-27] MEDS: cefTRIAXone SODIUM 2,000 MG/50 ML BAG IV STA (21:59)
[2024-07-27] MEDS: DOXYCYCLINE HYCLATE 100 MG CAP PO STA (21:59)
[2024-07-27] MEDS: ALBUT/IPRATROP 3MG/0.5MG NEB 3 ML VIAL INH STA (22:00)
[2024-07-27] MEDS: SODIUM CHLORIDE 0.9% 1,000 ML IV ONE (22:00)
[2024-07-27 22:10] LABS: Albumin Globulin Ratio 1.5 (0.9-2); BUN Creatinine Ratio 16.1 (10-20); Bilirubin,Total 0.5 mg/dl (0.2-1.0); Calcium 9.5 mg/dl (8.6-10.3); Creatinine Clr Calc Pharmacy 60.2 ml/min; Globulin 2.7 gm/dl (2.5-4.0); Potassium 4.4 mmol/L (3.5-5.1); Total Protein 6.7 gm/dl (6.0-8.3)
[2024-07-27 22:35] LABS: Appearance Urine Clear (Clear); Bilirubin Urine Negative (Negative); Blood Urine Negative (Negative); Color Urine Yellow; Glucose Urine UA Negative (Negative); Ketones Urine Negative (Negative); Leukocyte Esterase Urine Negative (Negative); Nitrite Urine Negative (Negative); Protein Urine Negative (Negative); Specific Gravity Urine 1.005 (1.000-1.030); Urobilinogen Urine Negative (Negative)
[2024-07-27 23:11] LABS: Adenovirus PCR Not Detected (NotDetected); Bordetella parapertussis PCR Not Detected (NotDetected); Bordetella pertussis PCR Not Detected (NotDetected); Chlamydia pneumoniae PCR Not Detected (NotDetected); Coronavirus 229E PCR Not Detected (NotDetected); Coronavirus CoV-2 (COVID19)PCR Not Detected (NotDetected); Coronavirus HKU1 PCR Not Detected (NotDetected); Coronavirus NL63 PCR Not Detected (NotDetected); Coronavirus OC43PCR Not Detected (NotDetected); Human Metapneumovirus PCR Not Detected (NotDetected); Influenza A PCR Not Detected (NotDetected); Influenza B PCR Not Detected (NotDetected); Mycoplasma pneumoniae PCR Not Detected (NotDetected); Parainfluenza Virus 1 PCR Not Detected (NotDetected); Parainfluenza Virus 2 PCR Not Detected (NotDetected); Parainfluenza Virus 3 PCR Not Detected (NotDetected); Parainfluenza Virus 4 PCR Not Detected (NotDetected); Respiratory Syncytial VirusPCR Not Detected (NotDetected); Rhinovirus/Enterovirus PCR Not Detected (NotDetected)
--- NOTE | 2024-07-27 23:41 | History & Physical Report ---
Date of Service July 27, 2024 Assessment & Plan (1) CAP (community acquired pneumonia): Plan: - CXR with concern for PNA-> CT chest is pending - Leukocytosis resolved, afebrile, procal negative, resp biofire negative - S/p ceftriaxone/doxycycline in ED-> in ED (will use doxycycline as apposed to azithromycin as he is on amiodarone). (2) Asthma exacerbation: Plan: - history of asthma, increased dyspnea/wheezing in the setting of likely bacterial PNA - s/p 125mg methylprednisolone in ED-> continue with 60mg BID - Duonebs q6 - continue home inhalers (3) Atrial fibrillation: Plan: - NSR at present-> continue amiodarone and Eliquis (4) Glaucoma: Plan: - continue lantopost drops Plan Chronic Stable GERD: continue pantoprazole BPH: continue alfuzosin Diet: Regular Code: Full VTE Prophylaxis: Eliquis History of Present Illness Primary Care Provider: Dorian Cardenas III, [place] 78 year old male with a past medical history of asthma, afib on Eliquis, anemia, Hereditary peripheral neuropathy presenting per PCP recommendation after outpatient labs note leukocytosis and has been having URI symptoms for over a week. Productive cough, congestion, increased wheezing. CBC from 07/26 with WBC= 21. Denies fever/chills. Denies chest/pleuritic pain. ED Course Significant for: WBC= 9.9, Hgb= 12.7. CMP with Na= 133. Procal- 0.39. VBG pending. UA unremarkable. Resp biofire negative. EKG with NSR. CXR with right upper lobe opacity. Allergies Allergy/AdvReac Type Severity Reaction Status Date / Time Penicillins Allergy Severe Hives Verified 07/26/24 13:54 morphine AdvReac Severe Anaphylaxis Verified 07/26/24 13:54 phenytoin [From Dilantin] AdvReac Severe Anaphylaxis Verified 07/26/24 13:54 Home Medications Medication Instructions Recorded Confirmed Type loratadine 10 mg tablet (Claritin) 10 mg PO QAM 09/05/20 07/26/24 History cyanocobalamin (vitamin B-12) 500 500 mcg PO QAM 06/06/21 07/26/24 History mcg tablet (Vitamin B-12) fluticasone propionate 50 1 spray intranasal BID 06/26/22 07/26/24 History mcg/actuation nasal spray,suspension latanoprost 0.005 % eye drops 1 drp ophthalmic (eye) HS 07/10/22 07/26/24 History magnesium citrate 100 mg tablet 50 mg PO DAILY 11/20/22 07/26/24 History albuterol sulfate 90 mcg/actuation 1 - 2 puff inhalation .Q4-6H PRN 05/27/23 07/26/24 History aerosol inhaler (ProAir HFA) shortness of breath or wheezing polyethylene glycol 3350 17 gram 17 g PO BID PRN constipation #30 ea 05/29/23 07/26/24 Rx oral powder packet (Miralax) cholecalciferol (vitamin D3) 125 125 mcg PO DAILY 06/15/23 07/26/24 History mcg (5,000 unit) tablet (Vitamin D3) pantoprazole 40 mg tablet,delayed 40 mg PO QAM EOE #90 tabs 08/27/23 07/26/24 Rx release (Protonix) budesonide-formoterol HFA 160 1 puff inhalation BID #10.2 grams 09/10/23 07/01/24 Rx mcg-4.5 mcg/actuation aerosol inhaler (Symbicort) apixaban 5 mg tablet (Eliquis) 5 mg PO BID #180 tabs 11/04/23 07/26/24 Rx amiodarone 200 mg tablet 200 mg PO QPM #90 tabs 03/16/24 07/26/24 Rx cyclobenzaprine 10 mg tablet 10 mg PO BID PRN muscle spasm #90 03/30/24 07/26/24 Rx tabs linaclotide 145 mcg capsule See Rx Instructions .Route 05/30/24 07/26/24 Rx (Linzess) .COMPLEX #30 caps alfuzosin 10 mg tablet,extended 10 mg PO DAILY 07/26/24 History release 24 hr fluticasone furoate 100 1 inh inhalation Q24H #60 ea 07/26/24 07/26/24 Rx mcg-vilanterol 25 mcg/dose inhalation powder (Breo Ellipta) Past Med/Surg History Problem List (Updated 07/27/24 @ 23:50 by Amina Hernandez, DO) Asthma exacerbation CAP (community acquired pneumonia) LOVELL (dyspnea on exertion) Muscle spasticity On amiodarone therapy Fine motor impairment Hematochezia Mild left ventricular systolic dysfunction Lightheadedness Macrocytosis without anemia Cough Vitamin D deficiency Hereditary peripheral neuropathy Nutritional deficiency Weight loss Sensory polyneuropathy Limb ataxia Ataxic gait Aortic regurgitation Pulmonic regurgitation Tricuspid regurgitation Mitral regurgitation Normal left ventricular systolic function Fatigue Paroxysmal atrial fibrillation Encounter for monitoring anti-arrhythmic therapy Iron deficiency Vitamin B12 deficiency Shoulder pain, right Frequent falls Balance disorder Dyslipidemia Esophageal obstruction due to food impaction (Acute) Vertigo Left shoulder pain Orthostatic hypotension History of prostate cancer 2009- radiation therapy Difficulty swallowing (Acute) Chronic anticoagulation Eosinophilic esophagitis Asthma (Acute) Atrial fibrillation (Acute) on eliquis daily--follows w/ Dr Celis 05/27/23 Organic impotence (Acute) Medical History (Updated 07/27/24 @ 23:50 by Amina Hernandez DO) Chest pain Bright red rectal bleeding Lower abdominal pain Acute dehydration Pneumonia recently hospitalized at [facility]- 05/2023; resolved Glaucoma Chronic cough COPD (chronic obstructive pulmonary disease) Severe protein-calorie malnutrition Seizure 12 yrs ago > result of severe asthma attack > one time incident Malignant neoplasm of prostate just radiation > resolved Surgical History H/O endoscopy History of lung biopsy History of cardioversion x4--for a fib History of esophagogastroduodenoscopy (EGD) last 06/2021 @ [facility] History of colonoscopy Hx of basal cell carcinoma excision History of tooth extraction History of tonsillectomy History of exploratory laparotomy H/O cataract extraction bilat History of right knee joint replacement H/O hernia repair H/O vasectomy Family History Mother Breast cancer Myocardial infarction Father Myocardial infarction Brother Myocardial infarction Sister Age: 74 Cerebellar ataxia with neuropathy and bilateral vestibular areflexia syndrome Denies family history of Ovarian cancer Prostate cancer Colorectal cancer Social History Smoking Status: Never smoker Second Hand Exposure: No; Do You Dip or Chew Tobacco: No; Hx Alcohol Use: Yes Alcohol type: wine Alcohol Intake Frequency: Monthly or Less Hx Substance Use: No Preferred Language: Uzbek Communication Ability: Effective Communication Ability Comment: [place] Visual Impairment: No Limitations Hearing Ability: Use of Hearing Aid Pattern Puncher Required: No Beliefs That Will Affect Care: None marital status: Current Living Situation: Spouse current occupational status: employed 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 How many Children do You have: 1 Other Information That Helps Us Care for You: No Feels Safe at Home: Yes Safety Concerns: Feels Safe At This Time Childhood Exposure to Second-Hand Smoke: Yes Diet: regular Diet Comment: regular caffeine: Yes during the past year weight has: remained stable Dental Care, Regularly: No Physical Activity Frequency: Daily Seatbelt Use: always Sunscreen Use: Yes Assistive Devices: Cane and Walker Review of Systems Review of Systems: As per above Physical Exam Physical Exam: Constitutional: well-appearing, no acute distress HEENT: NCAT, no conjunctival injection CV: regular rhythm, no murmur appreciated, extremities well-perfused, no LE edema Resp: + expiatory wheezing, no rales/rhonchi appreciated, no increased work of breathing GI: soft, nondistended, nontender MSK: no gross deformities appreciated Skin: warm, dry, no rash appreciated Neuro: alert, oriented, no focal neurologic deficit appreciated Results & Data Results & Data Vital Signs (Past 12 Hours) Vital Signs Temp Pulse Pulse Resp BP BP Pulse Ox 07/27/24 22:14 74 24 153/95 H 99 07/27/24 22:03 70 07/27/24 21:12 36.5 C 69 22 141/96 H 93 O2 Del Method 07/27/24 22:14 Nebulizer 07/27/24 22:03 07/27/24 21:12 Room Air Supervising Physician Co-Signing Physician Notes Attending addendum: I have physically seen this patient, have supervised the medical residents activities, and agree with the H&P unless as otherwise noted. Assessment and Plan: Community-acquired pneumonia/asthma exacerbation/interstitial infiltrates- Status post methylprednisolone 125 mg IV in the ED Methylprednisolone 60 mg IV every 12 hours Ceftriaxone 2 g IV daily Doxycycline 100 mg p.o. twice daily Duonebs every 4 hours while awake and every 2 hours when necessary. Mucinex 600 mg p.o. every 12 hours Continue usual inhalers Respiratory BioFire test negative CT scan chest with contrast ordered, and still pending. Further adjustments pending results Atrial fibrillation- Continue amiodarone, apixaban BPH- Continue alfuzosin or substitute Follow urine output, straight cath as needed GERD- Continue pantoprazole, needs optimal control to improve pulmonary status Resident Activity Tracking Resident Involvement: Resident Care Provided Care Provided: Adult Hospital Medicine (3) Atrial fibrillation Atrial fibrillation type: permanent Qualified Code(s): I48.21 - Permanent atrial fibrillation
[2024-07-28 00:52] LABS: Base Excess VBG -4.5 mEq/L; HCO3 VBG 26 mmol/L; Oxygen Saturation VBG 73.1 %; PCO2 VBG 72 mmHg (38-50); PO2 VBG 46 mmHg; pH VBG 7.16 (7.36-7.41)
[2024-07-28] MEDS ORDERED: BUDESONIDE/FORMOTEROL FUMARATE 160/4.5 60 PUFFS/INHALER INH SCH (00:56)
[2024-07-28] MEDS ORDERED: ALBUTEROL HFA 8 GM INHALER INH PRN (00:56)
--- NOTE | 2024-07-28 01:09 | XRay Report ---
Exam(s): XR CXR 1 VIEW EXAM: XR Chest, 1 View CLINICAL HISTORY: Reason for exam: Dyspnea. TECHNIQUE: Frontal view of the chest. COMPARISON: June 16, 2024 FINDINGS: Lungs: Reticular nodular increased densities throughout the right lung, new since previous. Consider pneumonia versus pulmonary edema. Pleural space: Unremarkable. No pneumothorax. Heart: The cardiac silhouette is mildly enlarged, similar to previous. Mediastinum: Unremarkable. Normal mediastinal contour. Bones/joints: Unremarkable. No acute fracture. Soft tissues: There are staple lines in the superior and lateral aspect of the left lung consistent with previous partial pneumonectomy, unchanged. IMPRESSION: 1. Reticular nodular increased densities throughout the right lung, new since previous. Consider pneumonia versus pulmonary edema. 2. The cardiac silhouette is mildly enlarged, similar to previous. Electronically signed by: Christian Chavez MD 07/28/24 01:09 AM
[2024-07-28] MEDS: APIXABAN 5 MG TABLET PO SCH (01:48)
[2024-07-28] MEDS: AMIODARONE 200 MG TAB PO SCH (01:48)
[2024-07-28] MEDS: ALBUT/IPRATROP 3MG/0.5MG NEB 3 ML VIAL NEB SCH (01:54)
--- NOTE | 2024-07-28 02:30 | Billing Data ---
Date of Service July 28, 2024 Coding Level of Care Code 26698 INT INP/OBS CARE
[2024-07-28] MEDS: OPTIRAY 320 100ml IV ONE (02:59)
[2024-07-28 03:01] LABS: iSTAT Arterial Blood Gas HCO3 22 meg/L (19-24); iSTAT Arterial Blood Gas pCO2 38 mmHg (35-46); iSTAT Arterial Blood Gas pH 7.36 (7.35-7.45); iSTAT Arterial Blood Gas pO2 112 mmHg (80-95); iSTAT Carbon Dioxide 23 mmol/L (24-31); iSTAT Hematocrit 37 % (42-52); iSTAT Hemoglobin 12.6 g/dl (14.0-18.0); iSTAT Potassium 3.9 mmol/L (3.3-5.0); iSTAT Sample Type Arterial; iSTAT Sodium 135 mmol/L (135-144)
--- NOTE | 2024-07-28 04:03 | CT Scan Report ---
EXAM: CT chest diagnostic w con CLINICAL HISTORY: f/u abnormal cxr, 93 ml optiray 320, pt is sob TECHNIQUE: Contiguous 3.[address] images of the chest were acquired with administration of 93ml of Opitray-320mg/ml intravenous contrast. Coronal and sagittal reconstructions were obtained. One of the following dose reduction techniques were utilized for this exam: Automated exposure control, adjustment of the mA and/or kV according to patient size, and use of iterative reconstruction COMPARISON: Prior CR 06/16/2024. FINDINGS: Lungs: Relatively hyperinflated left upper lobe. Bilateral extensive lung parenchymal, with relative sparing of the left upper lobe, centrilobular, peribronchovascular nodules, with subpleural tree in budd densities, confluent ground glass opacities. Lingular small calcified granuloma Mild bilateral peribronchial wall thickening. Left upper lobar subpleural calcified fibrotic band. No pleural effusion or pleural thickening. Mediastinum: No mediastinal mass or abnormal lymphadenopathy. Few reactive-looking mediastinal lymph nodes. Normal appearance of the thymus. Hilar Structures: Normal size and configuration, no enlargement. Heart and Great Vessels: Normal heart size and configuration. No pericardial effusion. Normal caliber and course of the thoracic aorta and other great vessels. No significant aneurysm. Mild atheromatous calcification of the arch of the aorta. Normal enhancement of the great vessels post-contrast. Pulmonary Arteries: No evidence of pulmonary embolism. Normal size and course of the pulmonary arteries. Esophagus: Normal course and caliber. No masses or dilatation. Bones: Spondylotic changes. Cortical stepping of the angle of the right 3rd,m 5th, 6th, 7th, and 8th, ribs. likely seuels of old traumatic insult need clinical correlation. No fractures or lytic/sclerotic lesions. Normal bone density and alignment. Chest Wall: No masses or soft tissue abnormalities. Upper Abdomen: A small sliding hiatus hernia. Bilobar variable-sized hepatic hypodense focal lesions, the largest at segment VII measuring 20 x 17 mm, need further contrast-enhanced triphasic abdominal CT for better evaluation. Moderate fecal loading with distension of the visualized colonic segments. Visualized portions of the spleen, pancreas, adrenal glands, and kidneys are normal. Thyroid: Normal size and morphology. No nodules or masses. IMPRESSION: 1. Bilateral extensive lung parenchymal, with relative sparing of the left upper lobe, centrilobular, peribronchovascular nodules, with subpleural tree in budd densities, confluent ground glass opacities. 2. Mild bilateral peribronchial wall thickening. 3. Features suggest small airway disease, which could be infectious bronchiolitis, needs clinical and laboratory correlation. 4. Cortical stepping of the angle of the right 3rd,m 5th, 6th, 7th, and 8th, ribs. likely seuels of old traumatic insult need clinical correlation. 5. A small sliding hiatus hernia. 6. Bilobar variable-sized hepatic hypodense focal lesions, the largest at segment VII measuring 20 x 17 mm, could be cysts that need further contrast-enhanced triphasic abdominal CT for better characterization. 7. The lung parenchymal changes are more conspicuous on CT than on the prior CR, with no significant interval changes. Electronically signed by Reyes Mason 07-28-2024 04:03 AM
[2024-07-28 05:49] LABS: Base Excess VBG -0.3 mEq/L; HCO3 VBG 24 mmol/L; Oxygen Saturation VBG 91.7 %; PCO2 VBG 38 mmHg (38-50); PO2 VBG 57 mmHg; pH VBG 7.41 (7.36-7.41)
[2024-07-28 05:55] LABS: Hematocrit (blood only) 35.6 % (42.0-52.0); Mean Corpuscular Hemoglobin 32.6 pg (25.0-34.0); Mean Corpuscular Hgb Conc 33.7 g/dL (32.0-36.0); Mean Corpuscular Volume 96.7 fL (80.0-100.0); Mean Platelet Volume 8.5 fL (9.4-12.4); Platelet Count 399 K/uL (130-400); RDW Coefficient of Variation 13.1 % (11.5-14.5); RDW Standard Deviation 46.3 fL (36.4-46.3); Red Blood Count 3.68 M/uL (4.70-6.10); White Blood Count 7.32 K/ul (4.8-10.8)
[2024-07-28 06:11] LABS: BUN Creatinine Ratio 16.3 (10-20); Calcium 8.8 mg/dl (8.6-10.3); Creatinine Clr Calc Pharmacy 65.2 ml/min
[2024-07-28 06:20] LABS: Basophils # (auto) 0.01 K/uL (0.00-0.20); Basophils % (auto) 0.1 %; Immature Granulocytes # (auto) 0.06 K/uL (0.01-0.20); Immature Granulocytes % (auto) 0.8 %; Lymphocytes # (auto) 0.22 K/uL (1.20-3.40); Monocytes # (auto) 0.05 K/uL (0.11-0.59); Monocytes % (auto) 0.7 %; Neutrophils # (auto) 6.98 K/uL (1.40-6.50); Neutrophils % (auto) 95.4 %; RBC Morphology Unremarkable
--- NOTE | 2024-07-28 07:42 | Hospitalist Progress Note ---
Date of Service July 28, 2024 Assessment & Plan (1) CAP (community acquired pneumonia): (2) On amiodarone therapy: (3) Cough: Plan (1) CAP (community acquired pneumonia) - CXR and CT-chest with concern for PNA, more likely an atypical PNA - Leukocytosis resolved, afebrile, procal negative, resp biofire negative - S/p ceftriaxone/doxycycline in ED-> in ED (will use doxycycline as apposed to azithromycin as he is on amiodarone) - Continue doxycycline, stopped ceftriaxone (2) Asthma exacerbation: - history of asthma, increased dyspnea/wheezing in the setting of likely bacterial PNA - last PFT's show no evidence of obstructive dz, no evidence of bronchodilator repsonse, December 2023 Kadri - s/p 125mg methylprednisolone in ED-> continue with 60mg BID - Duonebs q6R, JEREMIAS, continue home inhalers - was using Symbicort before but then switched to Trelegy 2 days ago (3) Atrial fibrillation - NSR at present-> continue amiodarone and Eliquis (4) Glaucoma - continue lantopost drops (5) CANVAS syndrome - cyclobenzaprine, 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 Updated patient and to the best my ability and to their satisfaction. Vitals noted, in general he is awake and alert pleasant no distress. HEENT normocephalic atraumatic mucous membranes moist. Breathing unlabored no accessory muscle use good effort. Skin shows no rashes no pallor or icterus. Hypoxiaatypical pneumonia with asthma exacerbationappears to be improving, feeling much better. No need for typical coveragewill stop ceftriaxone. Continue doxycycline, continue steroids, continue nebulizers. Anticoagulated. Otherwise as above. Subjective Patient is a 78 yo M w/ a PMHx of asthma, AFib on Eliquis, anemia, Hereditary peripheral neuropathy, (possibly EOE), GERD presenting per PCP recommendation after outpatient labs note leukocytosis and has been having URI symptoms for over a week. Productive cough, congestion, increased wheezing. (CBC from 07/26 with WBC= 21). Denied fever/chills. Denied chest/pleuritic pain. Saw and evaluated the patient this morning and he denied any fevers/chills overnight, but still endorsed cough, shortness of breath Review of Systems Constitutional: + fatigue; no fever and no chills Respiratory: + cough, + chest congestion and + dyspne a on exertion Cardiovascular: no chest pain and no palpitations Gastrointestinal: no abdominal pain, no nausea and no vomiting Genitourinary: no dysuria or no urinary frequency Neurologic: + lack of coordination (baseline decreas ed fine motor skills secondary to CANVAS); no tingling and no numbness Physical Exam Constitutional: WD/WN, vitals as above Respiratory: + labored breathing and + cough Auscu ltation: + crackles; no wheezes Cardiovascular: RRR, no murmur, no edema Extremities: normal capillary refill; no calf tenderness and no pedal edema Gastrointestinal (Abdomen): normal bowel sounds, soft, nontender, no hepatosplenomegaly Psychiatric: A+Ox3, euthymic affect Results & Data Results & Data Vital Signs (Past 12 Hours) Vital Signs Temp Pulse Pulse Pulse Resp BP BP 07/28/24 07:30 80 07/28/24 04:11 07/28/24 03:26 81 07/28/24 03:16 36.4 C L 84 26 H 157/93 H 07/28/24 01:54 84 25 H 07/28/24 00:55 07/28/24 00:52 77 07/28/24 00:45 36.3 C L 79 22 149/88 H 07/28/24 00:15 74 24 143/90 H 07/28/24 00:06 07/28/24 00:05 07/28/24 00:00 74 24 135/85 07/27/24 23:30 75 22 147/93 H 07/27/24 23:00 80 24 131/86 07/27/24 22:30 71 20 142/84 H 07/27/24 22:14 74 24 153/95 H 07/27/24 22:03 70 07/27/24 21:12 36.5 C 69 22 141/96 H Pulse Ox O2 Del Method O2 Flow Rate 07/28/24 07:30 07/28/24 04:11 Nasal Cannula 2 07/28/24 03:26 07/28/24 03:16 96 Nasal Cannula 2 07/28/24 01:54 92 Nasal Cannula 2 07/28/24 00:55 Nasal Cannula 2 07/28/24 00:52 07/28/24 00:45 93 Nasal Cannula 2 07/28/24 00:15 94 Nasal Cannula 2 07/28/24 00:06 93 Room Air 07/28/24 00:05 88 L Nasal Cannula 0 07/28/24 00:00 92 Nasal Cannula 2 07/27/24 23:30 97 Room Air 07/27/24 23:00 98 Room Air 07/27/24 22:30 98 Room Air 07/27/24 22:14 99 Nebulizer 07/27/24 22:03 07/27/24 21:12 93 Room Air
[2024-07-28] MEDS: methylPREDNISolone 60 MG in SYRINGE 0 ML IV SCH (08:11)
[2024-07-28] MEDS: PANTOprazole 40 MG TAB PO SCH (08:12)
[2024-07-28] MEDS: DOXYCYCLINE HYCLATE 100 MG CAP PO SCH (08:12)
[2024-07-28] MEDS: LINACLOTIDE 145 MCG CAPSULE PO SCH (08:12)
[2024-07-28] MEDS: FLUTICASONE PROPIONATE NA SPR 16 GM BTL SCH (08:13)
[2024-07-28] MEDS: FLUTICASONE/VILANTEROL 100/25MCG 14 PUFFS/INHALER INH SCH (08:13)
[2024-07-28] MEDS: TAMSULOSIN HCL 0.4 MG CAP PO SCH (08:13)
[2024-07-28] MEDS ORDERED: methylPREDNISolone 125 MG/2 ML VIAL IV SCH (09:00)
[2024-07-28] MEDS: LORATADINE 10 MG TAB PO SCH (09:39)
--- NOTE | 2024-07-28 15:05 | Electrocardiogram Report ---
Test Reason : Blood Pressure : */* mmHG Vent. Rate : 71 BPM Atrial Rate : 71 BPM P-R Int : 200 ms QRS Dur : 90 ms QT Int : 390 ms P-R-T Axes : 60 2 28 degrees QTcB Int : 423 ms Normal sinus rhythm with sinus arrhythmia Normal ECG When compared with ECG of 16-Jun-2024 15:35, Non-specific change in ST segment in Inferior leads Confirmed by Irwin Ramirez ([id number]) on 07/28/2024 3:05:12 PM Referred By: Dorian Cardenas Confirmed By: Irwin Ramirez
--- NOTE | 2024-07-28 17:12 | Billing Data ---
Date of Service July 28, 2024 Coding Level of Care Code 56556 SUB INP/OBS CARE
[2024-07-28] MEDS: CYCLOBENZAPRINE HCL 10 MG TAB PO SCH (20:16)
[2024-07-28] MEDS: LATANOPROST 0.005% OP SOLN 2.5 ML BTL OP SCH (21:09)
[2024-07-28] MEDS ORDERED: cefTRIAXone SODIUM 2,000 MG/50 ML BAG IV SCH (22:00)
[2024-07-29 06:41] LABS: Basophils # (auto) 0.02 K/uL (0.00-0.20); Basophils % (auto) 0.1 %; Hematocrit (blood only) 35.2 % (42.0-52.0); Hemoglobin 11.7 g/dl (14.0-18.0); Immature Granulocytes # (auto) 0.25 K/uL (0.01-0.20); Immature Granulocytes % (auto) 1.6 %; Lymphocytes # (auto) 0.56 K/uL (1.20-3.40); Lymphocytes % (auto) 3.6 %; Mean Corpuscular Hemoglobin 32.6 pg (25.0-34.0); Mean Corpuscular Hgb Conc 33.2 g/dL (32.0-36.0); Mean Corpuscular Volume 98.1 fL (80.0-100.0); Mean Platelet Volume 8.5 fL (9.4-12.4); Monocytes # (auto) 0.77 K/uL (0.11-0.59); Neutrophils # (auto) 13.95 K/uL (1.40-6.50); Neutrophils % (auto) 89.7 %; Platelet Count 408 K/uL (130-400); RDW Coefficient of Variation 13.2 % (11.5-14.5); RDW Standard Deviation 47.8 fL (36.4-46.3); Red Blood Count 3.59 M/uL (4.70-6.10); White Blood Count 15.55 K/ul (4.8-10.8)
[2024-07-29 07:49] VITALS: O2SAT 92
[2024-07-29 08:58] LABS: BUN Creatinine Ratio 18.7 (10-20); Calcium 9.3 mg/dl (8.6-10.3); Creatinine Clr Calc Pharmacy 60.1 ml/min; Potassium 4.3 mmol/L (3.5-5.1)
--- NOTE | 2024-07-29 10:03 | Discharge Summary ---
Date of Service July 29, 2024 Admission HPI Per Admitting Provider 78 year old male with a past medical history of asthma, afib on Eliquis, anemia, Hereditary peripheral neuropathy presenting per PCP recommendation after outpatient labs note leukocytosis and has been having URI symptoms for over a week. Productive cough, congestion, increased wheezing. CBC from 07/26 with WBC= 21. Denies fever/chills. Denies chest/pleuritic pain. ED Course Significant for: WBC= 9.9, Hgb= 12.7. CMP with Na= 133. Procal- 0.39. VBG pending. UA unremarkable. Resp biofire negative. EKG with NSR. CXR with right upper lobe opacity. Admission Exam Per Admitting Provider Constitutional: well-appearing, no acute distress HEENT: NCAT, no conjunctival injection CV: regular rhythm, no murmur appreciated, extremities well-perfused, no LE edema Resp: + expiatory wheezing, no rales/rhonchi appreciated, no increased work of breathing GI: soft, nondistended, nontender MSK: no gross deformities appreciated Skin: warm, dry, no rash appreciated Neuro: alert, oriented, no focal neurologic deficit appreciated Principal Diagnosis community-acquired, atypical pneumonia; asthma exacerbation Discharge Exam Constitutional WD/WN, vitals as above Respiratory + labored breathing and + cough Auscultation: + crackles; no wheezes Cardiovascular RRR, no murmur, no edema Extremities: normal capillary refill; no calf tenderness and no pedal edema Gastrointestinal (Abdomen) normal bowel sounds, soft, nontender, no hepatosplenomegaly Psychiatric A+Ox3, euthymic affect Discharge Data Allergies Allergy/AdvReac Type Severity Reaction Status Date / Time Penicillins Allergy Severe Hives Verified 07/26/24 13:54 morphine AdvReac Severe Anaphylaxis Verified 07/26/24 13:54 phenytoin [From Dilantin] AdvReac Severe Anaphylaxis Verified 07/26/24 13:54 Consultations 07/27/24 22:36 ED Decision to Admit Stat Ordered Studies 07/28/24 02:31 CT chest diagnostic w con Stat Hospital Course (1) CAP (community acquired pneumonia): (2) On amiodarone therapy: (3) Cough: Plan (1) CAP (community acquired pneumonia) - CXR and CT-chest with concern for PNA, more likely an atypical PNA - Leukocytosis, afebrile, procal negative (0.39), resp biofire negative upon admission - WBC, 15.6 <-- 7.3 <-- 21.0 - WBC elevated again, likely secondary to methylprednisolone, 60 mg, IV, BID use, as repeat procalcitonin 0.19 - S/p ceftriaxone/doxycycline in ED-> in ED (will use doxycycline as apposed to azithromycin as he is on amiodarone) - Continued doxycycline, stopped ceftriaxone during hospital stay - Discharge on doxycycline, 100 mg, PO, BID for 3.5 more days (2) Asthma exacerbation: - history of asthma, increased dyspnea/wheezing in the setting of likely bacterial PNA - last PFT's show no evidence of obstructive dz, no evidence of bronchodilator repsonse, December 2023 Kadri - s/p 125mg methylprednisolone in ED-> continue with 60mg BID - Duonebs q6R, JEREMIAS, continue home inhalers - was using Symbicort before but then switched to Trelegy 2 days ago - Discharge on prednisone, 60 mg, PO, daily for 5 more days - F/U w/ PCP and Pulmonology regarding use of bronchodilator inhalers (3) Atrial fibrillation - NSR at present-> continue amiodarone and Eliquis (4) Glaucoma - continue lantopost drops (5) CANVAS syndrome - cyclobenzaprine, 10 mg, PO, BID for associated muscle spasticity Plan Chronic Stable GERD/Eosinophilic Esophagitis: continue pantoprazole BPH: continue alfuzosin Total Time Total Time Spent Total Time Spent (In Minutes): <30 Discharge Plan Discharge Items Patient Disposition: Home - Self-Care Reason For Visit: DYSPNEA Discharge Diagnosis: community-acquired pneumonia Activity: Resume your previous activity Non-emergency contact: Primary Care Provider and Avp Call non-emergency contact if: you have any medication questions and your symptoms worsen Follow-up/Referrals: Dorian Cardenas III, CRNP [Primary Care Provider] - 08/02/24 3:00 pm (Hospital follow up scheduled August 02 at 3:00 ) Diet: Regular Addtl Attending Provider Instructions: You were admitted to the hospital for shortness of breath, chest congestion, cough w/ a chest X-ray concerning for pneumonia. You were treated with IV ceftriaxone, oral doxycycline, IV methylprednisolone (steroids), and IV fluids. A discharge summary will be sent to your primary care physician to ensure c ontinuity of care. Please bring this discharge summary with you to your next office appointment so that your provider can review it at that time. Follow-up appointments: We have requested a follow-up appointment with your primary care physician within one week of discharge. Please call their office if you do not hear from them. 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 If you cannot make an appointment, notify your provider. Medications: Your medication list has been reviewed and reconciled upon discharge to ensure accuracy and continuity of care. An updated list of all your medications is included with your hospital discharge paperwork. Please review this list closely, and make note of any changes. We sent a new medication called doxycycline to your pharmacy. Take doxycycline hyclate, 100 mg/one tablet, twice a day, for three and a half more days. We sent a new medication called prednisone to your pharmacy. Take prednisone, 60 mg/two tablets, daily, for 5 more days. Take your medications as instructed; do not skip a dose of your medicines. Make sure all of your doctors know every medicine you are taking (including gxtn-dyb-[id number] medicines, vitamins, and supplements). Call your primary care provider before taking any new medicines (including yjpk-kyj-ipticxs medicines, vitamins, and supplements), because some of these may interact with your current medications, or may make your symptoms worse. Tell your primary care provider if you cannot afford your medications. CONTACT YOUR PRIMARY CARE PROVIDER if you experience any of the following: fevers, chills, rigors shortness of breath, wheezing, chest tightness Difficulty following your treatment plan, or difficulty taking medications CALL 911 OR GO TO THE EMERGENCY DEPARTMENT if you experience any of the following: Sudden, severe abdominal pain or nausea/vomiting Severe chest pain, or chest pain that radiates (moves) to your jaw or arm Sudden, severe shortness of breath or difficulty breathing Thank you for allowing us to participate in your care Pending Studies at Discharge: No Stand-Alone Forms: My [facility] [employer], Smoking Cessation Medications and DC Order Prescriptions: New doxycycline hyclate 100 mg capsule 100 mg PO BID 3 Days Qty: 7 0RF prednisone 20 mg tablet 60 mg PO BID 5 Days Qty: 30 0RF Continued budesonide-formoterol [Symbicort] 160-4.5 mcg/actuation HFA aerosol inhaler 1 puff inhalation BID Qty: 10.2 3RF Hold Instructions: Home Medication placed on hold at Doctor's office Eliquis 5 mg tablet 5 mg PO BID Qty: 180 3RF Hold Instructions: Resume on 06/12/23. hold until cleared by PCP amiodarone 200 mg tablet 200 mg PO QPM Qty: 90 3RF Linzess 145 mcg capsule See Rx Instructions .ROUTE .COMPLEX Qty: 30 2RF Dose Instruction: TAKE ONE CAPSULE BY MOUTH DAILY Rx Instructions: TAKE ONE CAPSULE BY MOUTH DAILY pantoprazole [Protonix] 40 mg tablet,delayed release (DR/EC) 40 mg PO QAM Qty: 90 3RF loratadine [Claritin] 10 mg tablet 10 mg PO QAM fluticasone propionate 50 mcg/actuation spray,suspension 1 spray intranasal BID Rx Instructions: administer into each nostril magnesium citrate 100 mg tablet 50 mg PO DAILY cyclobenzaprine 10 mg tablet 10 mg PO BID PRN (Reason: muscle spasm) Qty: 90 3RF alfuzosin 10 mg tablet extended release 24 hr 10 mg PO DAILY Rx Instructions: administer after the same meal each day fluticasone furoate-vilanterol [Breo Ellipta] 100-25 mcg/dose blister with device 1 inh inhalation Q24H Qty: 60 2RF Trelegy Ellipta 100-62.5-25 mcg blister with device 0RF cyanocobalamin (vitamin B-12) [Vitamin B-12] 500 mcg Tablet 500 mcg PO QAM albuterol sulfate [ProAir HFA] 90 mcg/actuation HFA aerosol inhaler 1 - 2 puff inhalation .Q4-6H PRN (Reason: shortness of breath or wheezing) polyethylene glycol 3350 [Miralax] 17 gram Powder In Packet 17 g PO BID PRN (Reason: constipation) Qty: 30 2RF latanoprost 0.005 % Drops 1 drp OPHTHALMIC (EYE) HS cholecalciferol (vitamin D3) [Vitamin D3] 125 mcg (5,000 unit) Tablet 125 mcg PO DAILY Discharge Orders: Discharge Order (Routine); Ordered 07/29/24 Ordered By: Aleks Carrasco/Other Patient Handouts: Using an Incentive Spirometer, Treating Pneumonia, Preventing Falls in the Home, Falls Prevent Use Cane Walker, AFib Admission Data Admit Date/Time: 07/27/24 23:26 Attending Provider: Fabiano Norris Admit Provider: Amina Hernandez Primary Care Provider: Dorian Cardenas III Other Providers: Silvestre Montilla Other Interventions: Discharge Summary Assessment (RN) Last Done: 07/29/24 13:31 Supervising Physician Co-Signing Physician Notes I personally examined the patient and verified all butts points of history and exam, discussed case, and agree with decision making with Dr Sanchez feels better would like to go home walking off O2 no problems no hypoxia. Vitals noted, in general he is awake and alert pleasant no distress. HEENT normocephalic atraumatic mucous membranes moist. Breathing unlabored no a ccessory muscle use good effort. Skin shows no rashes no pallor or icterus. Hypoxiaatypical pneumonia with asthma exacerbationappears to be improving, feeling much better. safe/stable for home, finish course of abx and steroids. otherwise as above
[2024-07-29 11:24] VITALS: BP 126/70; RESP 19; TEMP 97.7
[2024-07-29 13:31] VITALS: PULSE 74
--- NOTE | 2024-07-29 17:08 | Billing Data ---
Date of Service July 29, 2024 Coding Level of Care Code 87399 IN/OBS DISCH 30 MIN/LESS
== END 2024-07-29 13:31 | disposition home or self-care (01) | DRG 194 ==
LOC: ED 21:05 → SUATTDRO 23:26 → 2W 23:26 → 2S 07-28 01:57

== ENCOUNTER 2024-09-01 11:09 | Inpatient (IN) ==
--- NOTE | 2024-09-01 11:19 | Emergency Department Note ---
Impression & Plan Acute hypotension, Acute and chronic respiratory failure with hypoxia, Dizziness, Acute dehydration, History of asthma ED Provider Note NAME: ERNIE RODRIGUEZ AGE: 78 SEX: M : 1945 ARRIVES VIA: Ambulance INFORMANT: Patient, ED PROVIDER(S): Fredis Ugalde MD CHIEF COMPLAINT: Outpatient referral, hypotension, dizziness MEDICAL DECISION MAKING: Patient presented due to concern for hypotension and fatigability. The patient was hypertensive upon arrival. No initial IV fluids ordered as the patient did have a liter that was began around but not completed. These were continued. Patient blood work the white count of 14 with a hemoglobin of 13. Patient's platelet count is unremarkable. The patient's kidney function is unremarkable BSG 165 with sodium 134. Pro-Delbert was ordered in light of the patient's recent steroid use. BioFire negative. Patient did have improvement with IV fluids. I did defer any additional treatments with the on-call hospitalist service. Patient was admitted by Dr. Moody. Discussion w/ other healthcare providers: Dr. Moody inpatient medicine service Prior /Outside records reviewed: I reviewed part of a primary care visit from August [address] Cifuentes. Patient with a history of hypoxemia and ongoing O2 requirements chronic constipation. Also associated fatigue. Patient also seen by Cristina Rodriguez August 2024 that history of paroxysmal A-fib chronic anticoagulation and mitral regurg and the left-ventricular systolic dysfunction. Per this note most recent echocardiogram from July 15, 2024 with an EF of 50 to 55% basal and mid septal hypokinesis with mild RV dilatation and mildly reduced RV systolic function. Moderate MR and TR. Aortic root 4.2 cm with ascending aorta 4 cm. Patient was reportedly hypotensive at the visit Stephanie referred to Moody Whitlock at that time. Differential diagnosis: Infection, dehydration, metabolic abnormality, hypo/hyperglycemia, electrolyte imbalance, anemia, UTI, pneumonia, thyroid dysfunction among others were considered. Diagnostics, as interpreted by me: ECG: Sinus rhythm with PVCs, rate of 69, normal intervals, normal axis. No ST elevations. Cardiac monitoring: An order was placed for continuous cardiac monitoring. The monitor shows a rate of 72 with sinus rhythm. Patient was placed on pulse oximetry Medical decision rules: None Imaging studies: I informally interpreted the patient's chest x-ray without consolidative pneumonia with formal report to follow. HPI: Patient presents as a referral from cardiology clinic this morning due to concern for dizziness and lightheadedness. The patient reportedly was in the 60s systolic in clinic. State improved for EMS in the 120s currently at bedside is in the 90s. The patient feels as though he has been getting enough to eat and drink. Patient has been on some steroids for recent pneumonia completed a course of antibiotics but has been on the steroids for about 2 weeks in duration. Patient has required oxygen since the time of his discharge in July for the pneumonia. Patient denies any abdominal pain. No leg swelling. Patient denies any known sick contacts or any recent travel. Patient does admit to feeling more fatigued weak and dizzy. No reported syncope or falls. Patient reportedly was seen in clinic today due to concern for increasing dizziness and Dr. Snyder's office and subsequently was referred here. PAST MEDICAL HISTORY: See Below PAST SURGICAL HISTORY: See Below SOCIAL HISTORY: See Below HOME MEDICATIONS: See Below ALLERGIES: See Below VITALS: See Below PHYSICAL EXAMINATION: GENERAL: Fatigable in appearance but nontoxic. EYE EXAM: Normal conjunctiva. PERRL, no anisocoria and EOM's grossly intact w/o pain. OROPHARYNX: Dry mucus membranes, grossly normal dentition. NECK: Trachea midline, no stridor. Supple, no nuchal rigidity, no adenopathy, non-tender. No signs of meningismus. FROM of the neck with good chin to chest and neck extension. LUNGS: Crackles at the bilateral lateral bases as well as throughout the right chest. No obvious wheezing. Normal chest wall mechanics. HEART: NSR, no MRG. ABDOMEN: Abdomen soft, non-tender, no masses, no rebound or guarding. BACK: No CVA TTP. SKIN: No rashes and no bruising. UPPER EXTREMITIES: Upper extremities are grossly normal. LOWER EXTREMITIES: Grossly normal, no edema. NEURO EXAM: A&O x3, cranial nerves II-XII grossly intact, normal speech, moves all 4 extremities. Past Med/Surg History Problem List Acute and chronic respiratory failure with hypoxia Acute hyponatremia (Acute) Acute interstitial pneumonia (Acute) Acute hypoxemic respiratory failure (Acute) CAP (community acquired pneumonia) LOVELL (dyspnea on exertion) Muscle spasticity On amiodarone therapy Fine motor impairment Hematochezia Mild left ventricular systolic dysfunction Lightheadedness Macrocytosis without anemia Cough Vitamin D deficiency Hereditary peripheral neuropathy Nutritional deficiency Weight loss Sensory polyneuropathy Limb ataxia Ataxic gait Aortic regurgitation Pulmonic regurgitation Tricuspid regurgitation Mitral regurgitation Normal left ventricular systolic function Fatigue Paroxysmal atrial fibrillation Encounter for monitoring anti-arrhythmic therapy Iron deficiency Vitamin B12 deficiency Shoulder pain, right Frequent falls Balance disorder Dyslipidemia Esophageal obstruction due to food impaction (Acute) Vertigo Left shoulder pain Orthostatic hypotension History of prostate cancer 2009- radiation therapy Difficulty swallowing (Acute) Chronic anticoagulation Eosinophilic esophagitis Asthma (Acute) Atrial fibrillation (Acute) on eliquis daily--follows w/ Dr Celis 05/27/23 Organic impotence (Acute) Medical History Chest pain Bright red rectal bleeding Lower abdominal pain Acute dehydration Pneumonia recently hospitalized at [facility]- 05/2023; resolved Glaucoma Chronic cough COPD (chronic obstructive pulmonary disease) Severe protein-calorie malnutrition Seizure 12 yrs ago > result of severe asthma attack > one time incident Malignant neoplasm of prostate just radiation > resolved Surgical History H/O endoscopy History of lung biopsy History of cardioversion x4--for a fib History of esophagogastroduodenoscopy (EGD) last 06/2021 @ [facility] History of colonoscopy Hx of basal cell carcinoma excision History of tooth extraction History of tonsillectomy History of exploratory laparotomy H/O cataract extraction bilat History of right knee joint replacement H/O hernia repair H/O vasectomy Family History Mother , age 82 of cancer Breast cancer Myocardial infarction Father , age 84 of heart issues Myocardial infarction Brother Myocardial infarction Sister Age: 74 Cerebellar ataxia with neuropathy and bilateral vestibular areflexia syndrome Denies family history of Ovarian cancer Prostate cancer Colorectal cancer Social History Smoking Status: Never smoker Second Hand Exposure: No; Do You Dip or Chew Tobacco: No; Hx Alcohol Use: Yes Alcohol type: wine Alcohol Intake Frequency: Monthly or Less Hx Substance Use: No Preferred Language: [place] Communication Ability: Effective Communication Ability Comment: [place] Visual Impairment: No Limitations Hearing Ability: Use of Hearing Aid Tool And Machine Maintainer Required: No Beliefs That Will Affect Care: None marital status: Current Living Situation: Spouse current occupational status: employed 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 How many Children do You have: 1 Feels Safe at Home: Yes Childhood Exposure to Second-Hand Smoke: Yes Diet: regular Diet Comment: regular caffeine: Yes during the past year weight has: remained stable Dental Care, Regularly: No Physical Activity Frequency: Daily Seatbelt Use: always Sunscreen Use: Yes Assistive Devices: Cane and Walker Allergies Allergies Allergy/AdvReac Type Severity Reaction Status Date / Time Penicillins Allergy Severe Hives Verified 09/01/24 10:28 morphine AdvReac Severe Anaphylaxis Verified 09/01/24 10:28 phenytoin [From Dilantin] AdvReac Severe Anaphylaxis Verified 09/01/24 10:28 Home Meds Home Medications Medication Instructions Recorded Confirmed loratadine 10 mg tablet (Claritin) 10 mg PO QAM 09/05/20 09/01/24 cyanocobalamin (vitamin B-12) 500 500 mcg PO QAM 06/06/21 09/01/24 mcg tablet (Vitamin B-12) fluticasone propionate 50 1 spray intranasal BID 06/26/22 09/01/24 mcg/actuation nasal spray,suspension latanoprost 0.005 % eye drops 1 drp ophthalmic (eye) HS 07/10/22 09/01/24 magnesium citrate 100 mg tablet 50 mg PO DAILY 11/20/22 09/01/24 albuterol sulfate 90 mcg/actuation 1 - 2 puff inhalation .Q4-6H PRN 05/27/23 09/01/24 aerosol inhaler (ProAir HFA) shortness of breath or wheezing cholecalciferol (vitamin D3) 125 125 mcg PO DAILY 06/15/23 09/01/24 mcg (5,000 unit) tablet (Vitamin D3) alfuzosin 10 mg tablet,extended 10 mg PO DAILY 07/26/24 09/01/24 release 24 hr magnesium hydroxide 2,400 mg/10 mL 30 ml PO DAILY PRN Unknown 08/12/24 09/01/24 oral suspension polyethylene glycol 3350 17 17 g PO DAILY 08/12/24 09/01/24 gram/dose oral powder prednisone 20 mg tablet 20 mg PO .COMPLEX 08/12/24 09/01/24 sennosides 15 mg tablet 15 mg PO DAILY PRN Constipation 08/12/24 09/01/24 Previous Rx's Medication Instructions Recorded polyethylene glycol 3350 17 gram 17 g PO BID PRN constipation #30 ea 05/29/23 oral powder packet (Miralax) apixaban 5 mg tablet (Eliquis) 5 mg PO BID #180 tabs 11/04/23 amiodarone 200 mg tablet 200 mg PO QPM #90 tabs 03/16/24 cyclobenzaprine 10 mg tablet 10 mg PO BID PRN muscle spasm #90 03/30/24 tabs linaclotide 145 mcg capsule See Rx Instructions .Route 05/30/24 (Linzess) .COMPLEX #30 caps fluticasone furoate 100 1 inh inhalation Q24H #60 ea 07/26/24 mcg-vilanterol 25 mcg/dose inhalation powder (Breo Ellipta) pantoprazole 40 mg tablet,delayed 40 mg PO QAM EOE #90 tabs 08/03/24 release (Protonix) Results & Data (ED) Vital Signs Vital Signs - 24 hr 09/01/24 11:22 09/01/24 11:22 09/01/24 11:22 Temperature 36.3 C L 36.3 C L Temperature Source Oral Oral Pulse Rate 63 Pulse Rate [Apical] 63 Pulse Rhythm Regular Pulse Rhythm [Apical] Regular Pulse Strength Normal Pulse Strength [Apical] Normal Respiratory Rate 24 24 Respiratory Effort / Characteristics Non-Labored Spontaneous Non-Labored Spontaneous Respiratory Depth Normal Normal Respiratory Pattern Regular Regular Blood Pressure 93/73 L Blood Pressure [Right Arm] 93/73 L Blood Pressure Mean 79 Blood Pressure Mean [Right Arm] 79 Blood Pressure Position Semi-fowlers Blood Pressure Position [Right Arm] Semi-fowlers Pulse Oximetry 98 98 98 Oxygen Delivery Method Nasal Cannula Nasal Cannula Nasal Cannula Oxygen Flow Rate 5 5 5 Sepsis Recent Fever Within 48 Hours No Sepsis New/Unexplained Change in Mental Status No Sepsis Action Taken by Nursing No Action Required 09/01/24 11:24 09/01/24 13:30 09/01/24 15:30 Temperature Temperature Source Pulse Rate 69 Pulse Rate [Apical] 76 74 Pulse Rhythm Pulse Rhythm [Apical] Pulse Strength Pulse Strength [Apical] Respiratory Rate 27 H 21 Respiratory Effort / Characteristics Respiratory Depth Respiratory Pattern Blood Pressure Blood Pressure [Right Arm] 113/81 123/83 Blood Pressure Mean Blood Pressure Mean [Right Arm] 91 96 Blood Pressure Position Blood Pressure Position [Right Arm] Semi-fowlers Semi-fowlers Pulse Oximetry 100 93 Oxygen Delivery Method Nasal Cannula Nasal Cannula Oxygen Flow Rate 4 4 Sepsis Recent Fever Within 48 Hours Sepsis New/Unexplained Change in Mental Status Sepsis Action Taken by Nursing 09/01/24 15:47 09/01/24 17:00 Temperature Temperature Source Pulse Rate 75 Pulse Rate [Apical] 77 Pulse Rhythm Pulse Rhythm [Apical] Pulse Strength Pulse Strength [Apical] Respiratory Rate 17 Respiratory Effort / Characteristics Respiratory Depth Respiratory Pattern Blood Pressure Blood Pressure [Right Arm] 133/91 Blood Pressure Mean Blood Pressure Mean [Right Arm] 105 Blood Pressure Position Blood Pressure Position [Right Arm] Semi-fowlers Pulse Oximetry 100 Oxygen Delivery Method Nasal Cannula Oxygen Flow Rate 4 Sepsis Recent Fever Within 48 Hours Sepsis New/Unexplained Change in Mental Status Sepsis Action Taken by Alf Medications Current Medication List: was personally reviewed by me Laboratory Data Attestation: I reviewed the patient's lab results. 09/01/24 11:19 09/01/24 11:19 Lab Results 09/01/24 09/01/24 Range/Units 11:19 15:39 WBC 14.52 H (4.8-10.8) K/ul RBC 4.19 L (4.70-6.10) M/uL Hgb 13.6 L (14.0-18.0) g/dl Hct 42.4 (42.0-52.0) % MCV 101.2 H (80.0-100.0) fL MCH 32.5 (25.0-34.0) pg MCHC 32.1 (32.0-36.0) g/dL RDW Std Deviation 54.9 H (36.4-46.3) fL RDW Coeff of Janet 14.8 H (11.5-14.5) % Plt Count 158 (130-400) K/uL MPV 9.4 (9.4-12.4) fL Immature Gran % (Auto) 0.7 % Neut % (Auto) 86.1 % Lymph % (Auto) 6.7 % [place] % (Auto) 5.3 % Eos % (Auto) 1.1 % Baso % (Auto) 0.1 % Neut # (Auto) 12.49 H (1.40-6.50) K/uL Lymph # (Auto) 0.98 L (1.20-3.40) K/uL [place] # (Auto) 0.77 H (0.11-0.59) K/uL Eos # (Auto) 0.16 (0.00-0.50) K/uL Baso # (Auto) 0.02 (0.00-0.20) K/uL Immature Gran # (Auto) 0.10 (0.01-0.20) K/uL VBG pH 7.33 L (7.36-7.41) VBG pCO2 58 H (38-50) mmHg VBG pO2 26 mmHg VBG HCO3 31 mmol/L VBG O2 Saturation < 60.0 % VBG Base Excess 3.2 mEq/L Sodium 134 L (136-145) mmol/L Potassium 4.6 (3.5-5.1) mmol/L Chloride 100 (98-107) mmol/L Carbon Dioxide 30 (21-32) mmol/L Anion Gap 4 (3-11) BUN 23 (6-23) mg/dl Creatinine 1.28 (0.6-1.4) mg/dl Est Cr Clr Drug Dosing 41.8 ml/min eGFR 58.00 BUN/Creatinine Ratio 18.0 (10-20) Glucose 165 H (70-99(Fasting)) mg/dl Calcium 9.1 (8.6-10.3) mg/dl Magnesium 2.4 (1.7-2.4) mg/dl Total Bilirubin 0.7 (0.2-1.0) mg/dl AST 15 (13-39) U/L ALT 23 (7-52) U/L Alkaline Phosphatase 68 (34-104) U/L Troponin I High Sens 10.8 (0-20) pg/ml Total Protein 6.2 (6.0-8.3) gm/dl Albumin 3.7 (3.4-5.0) gm/dl Globulin 2.5 (2.5-4.0) gm/dl Albumin/Globulin Ratio 1.5 (0.9-2) Procalcitonin 0.07 (0-0.5) ng/ml Adenovirus (PCR) Not Detected (NotDetected) B. pertussis DNA (PCR) Not Detected (NotDetected) B.parapertussis DNA PCR Not Detected (NotDetected) C. pneumoniae DNA (PCR) Not Detected (NotDetected) Coronavirus OC43 (PCR) Not Detected (NotDetected) Coronavirus HKU1 (PCR) Not Detected (NotDetected) Coronavirus 229E (PCR) Not Detected (NotDetected) SARS-CoV-2 (PCR) Not Detected (NotDetected) Coronavirus NL63 (PCR) Not Detected (NotDetected) Human Metapneumovir PCR Not Detected (NotDetected) Influenza Type A (PCR) Not Detected (NotDetected) Influenza Type B (PCR) Not Detected (NotDetected) M. pneumoniae (PCR) Not Detected (NotDetected) Parainfluenza 1 (PCR) Not Detected (NotDetected) Parainfluenza 2 (PCR) Not Detected (NotDetected) Parainfluenza 3 (PCR) Not Detected (NotDetected) Parainfluenza 4 (PCR) Not Detected (NotDetected) RSV (PCR) Not Detected (NotDetected) Entero/Rhino (PCR) Not Detected (NotDetected) Administered Medications Discontinued Medications Albuterol (Albut/Ipratrop 3mg/0.5mg Neb 3 Ml Vial) 3 ml NEB NOW STA; Protocol Stop: 09/01/24 12:29 Last Admin: 09/01/24 13:18 Dose: 3 ml Documented By: CEF Fludrocortisone Acetate (Fludrocortisone Acetate 0.1 Mg Tab) 0.1 mg PO ONE ONE Stop: 09/01/24 15:21 Last Admin: 09/01/24 15:38 Dose: 0.1 mg Documented By: CEF Methylprednisolone (Methylprednisolone 125 Mg/2 Ml Vial) 125 mg IV NOW STA Stop: 09/01/24 12:56 Last Admin: 09/01/24 13:23 Dose: Not Given Documented By: CEF Imaging Data Radiologist's Impression: Chest X-Ray 09/01/24 12:22 XR chest 1V portable CLINICAL HISTORY: Cough. COMPARISON STUDY: Chest radiograph July 27, [address] July 28, 2024. FINDINGS: There is no pneumothorax or pleural effusion. Postoperative findings within the left upper lung are again noted. Reticulonodular interstitial thickening is stable to slightly improved since prior chest radiograph and chest CT. No superimposed consolidation is identified. Cardiomediastinal silhouette is stable. IMPRESSION: Reticulonodular interstitial thickening, stable to slightly improved since prior chest radiograph and chest CT. This remains nonspecific and continued imaging follow-up is recommended. No superimposed consolidation identified. ACT 112: Negative or not required by law. Electronically signed by: Sai Brown M.D. 09/01/2024 1:10 PM Discharge Plan Visit Data Chief Complaint: Hypotension Stated Complaint: HYPOTENSOVE, WEAK, LIGHT HEADED ED Provider: Fredis Ugalde Discharge Problem: Acute hypotension, Acute and chronic respiratory failure with hypoxia, Dizziness, Acute dehydration, History of asthma Forms Stand Alone Forms: My [facility] [employer] Prescriptions Prescriptions: No Action Eliquis 5 mg tablet 5 mg PO BID Qty: 180 3RF Hold Instructions: Resume on 06/12/23. hold until cleared by PCP amiodarone 200 mg tablet 200 mg PO QPM Qty: 90 3RF Linzess 145 mcg capsule See Rx Instructions .ROUTE .COMPLEX Qty: 30 2RF Dose Instruction: TAKE ONE CAPSULE BY MOUTH DAILY Rx Instructions: TAKE ONE CAPSULE BY MOUTH DAILY pantoprazole [Protonix] 40 mg tablet,delayed release (DR/EC) 40 mg PO QAM Qty: 90 3RF loratadine [Claritin] 10 mg tablet 10 mg PO QAM fluticasone propionate 50 mcg/actuation spray,suspension 1 spray intranasal BID Rx Instructions: administer into each nostril magnesium citrate 100 mg tablet 50 mg PO DAILY magnesium hydroxide 2,400 mg/10 mL suspension 30 ml PO DAILY PRN (Reason: Unknown) polyethylene glycol 3350 17 gram/dose powder 17 g PO DAILY prednisone 20 mg tablet 20 mg PO .COMPLEX Rx Instructions: 20 mg orally; sennosides 15 mg tablet 15 mg PO DAILY PRN (Reason: Constipation) cyclobenzaprine 10 mg tablet 10 mg PO BID PRN (Reason: muscle spasm) Qty: 90 3RF alfuzosin 10 mg tablet extended release 24 hr 10 mg PO DAILY Rx Instructions: administer after the same meal each day fluticasone furoate-vilanterol [Breo Ellipta] 100-25 mcg/dose blister with device 1 inh inhalation Q24H Qty: 60 2RF cyanocobalamin (vitamin B-12) [Vitamin B-12] 500 mcg Tablet 500 mcg PO QAM albuterol sulfate [ProAir HFA] 90 mcg/actuation HFA aerosol inhaler 1 - 2 puff inhalation .Q4-6H PRN (Reason: shortness of breath or wheezing) polyethylene glycol 3350 [Miralax] 17 gram Powder In Packet 17 g PO BID PRN (Reason: constipation) Qty: 30 2RF latanoprost 0.005 % Drops 1 drp OPHTHALMIC (EYE) HS cholecalciferol (vitamin D3) [Vitamin D3] 125 mcg (5,000 unit) Tablet 125 mcg PO DAILY Referrals Referrals: Dorian Cardenas III, CRNP [Primary Care Provider] -
[2024-09-01 11:47] LABS: Basophils # (auto) 0.02 K/uL (0.00-0.20); Basophils % (auto) 0.1 %; Eosinophils # (auto) 0.16 K/uL (0.00-0.50); Eosinophils % (auto) 1.1 %; Hematocrit (blood only) 42.4 % (42.0-52.0); Hemoglobin 13.6 g/dl (14.0-18.0); Immature Granulocytes % (auto) 0.7 %; Lymphocytes # (auto) 0.98 K/uL (1.20-3.40); Lymphocytes % (auto) 6.7 %; Mean Corpuscular Hemoglobin 32.5 pg (25.0-34.0); Mean Corpuscular Hgb Conc 32.1 g/dL (32.0-36.0); Mean Corpuscular Volume 101.2 fL (80.0-100.0); Mean Platelet Volume 9.4 fL (9.4-12.4); Monocytes # (auto) 0.77 K/uL (0.11-0.59); Monocytes % (auto) 5.3 %; Neutrophils # (auto) 12.49 K/uL (1.40-6.50); Neutrophils % (auto) 86.1 %; Platelet Count 158 K/uL (130-400); RDW Coefficient of Variation 14.8 % (11.5-14.5); RDW Standard Deviation 54.9 fL (36.4-46.3); Red Blood Count 4.19 M/uL (4.70-6.10); White Blood Count 14.52 K/ul (4.8-10.8)
[2024-09-01 11:51] LABS: Base Excess VBG 3.2 mEq/L; HCO3 VBG 31 mmol/L; Oxygen Saturation VBG < 60.0 %; PCO2 VBG 58 mmHg (38-50); PO2 VBG 26 mmHg; pH VBG 7.33 (7.36-7.41)
[2024-09-01 12:01] LABS: Albumin Level 3.7 gm/dl (3.4-5.0); Bilirubin,Total 0.7 mg/dl (0.2-1.0); Calcium 9.1 mg/dl (8.6-10.3); Magnesium 2.4 mg/dl (1.7-2.4); Potassium 4.6 mmol/L (3.5-5.1)
[2024-09-01 12:07] LABS: Albumin Globulin Ratio 1.5 (0.9-2); Creatinine Clr Calc Pharmacy 41.8 ml/min; Globulin 2.5 gm/dl (2.5-4.0); Total Protein 6.2 gm/dl (6.0-8.3)
[2024-09-01 12:12] LABS: Troponin I High Sensitivity 10.8 pg/ml (0-20)
--- NOTE | 2024-09-01 13:12 | XRay Report ---
XR chest 1V portable CLINICAL HISTORY: Cough. COMPARISON STUDY: Chest radiograph July 27, [address] July 28, 2024. FINDINGS: There is no pneumothorax or pleural effusion. Postoperative findings within the left upper lung are again noted. Reticulonodular interstitial thickening is stable to slightly improved since pr ior chest radiograph and chest CT. No superimposed consolidation is identified. Cardiomediastinal craig houette is stable. IMPRESSION: Reticulonodular interstitial thickening, stable to slightly improved since prior chest r adiograph and chest CT. This remains nonspecific and continued imaging follow-up is recommended. No s uperimposed consolidation identified. ACT 112: Negative or not required by law. Electronically signed by: Sai Brown M.D. 09/01/2024 1:10 PM
[2024-09-01] MEDS: ALBUT/IPRATROP 3MG/0.5MG NEB 3 ML VIAL NEB STA (13:18)
[2024-09-01] MEDS: methylPREDNISolone 125 MG/2 ML VIAL IV STA (13:23)
--- NOTE | 2024-09-01 14:22 | History & Physical Report ---
Date of Service September 01, 2024 Assessment & Plan (1) Orthostatic hypotension: Plan: This is a longstanding issue although acutely worse - in fact I made reference to this in my H&P in May 2023 but he was taking lisinopril at that time. Likely made worse since he was started on alfuzosin in June. Given this has been helpful will switch to tamsulosin to minimize the blood pressure effects and start on fludrocortisone. Monitor orthostatic vitals starting tomorrow after fludrocortisone (2) Acute and chronic respiratory failure with hypoxia: Plan: Multiple episode of pneumonia diagnosed in July culminating with needing continuous oxygen which he did not require prior to [place] admission in July. Given chronic amiodarone use I'm not clear whether this has been consider as I don't think this caused his acute presentation with hypotension but would recommended pulmonology consult during his admission to expidite any further workup that he requires Currently does not appear wheezing on exam (although notably after nebulizer given) and no definitive new changes on imaging with negative procalcitonin [facility] pending (3) Atrial fibrillation: Plan: Paroxysmal Currently in NSR Continue on amiodarone for rhythm control Continue on Eliquis for stroke prophylaxis (4) Asthma: Plan: Continue fluticasone/vilanterol INH daily or hospital formulary equivalent No current wheezing to suggest acute exacerbation Plan VTE Prophylaxis - Eliquis Diet - regular Disposition - admit to med/tele Admission and Anticipated Discharge Date Admission Date: September 01, 2024 History of Present Illness Chief Complaint: Hypotension Primary Care Provider: Dorian Cardenas III, [place] Mukesh Jackson is a 78 year old male who presents to the ER from his cardiologists office with hypotension. He was noted to have sBP in 60s in the office with associated lightheadedness therefore sent over by EMS. He reports lightheadedness ongoing for the last 6 months although I saw him in May 2023 with this issue while on lisinopril so suspect it has been going on for longer. Since his repeated episodes of pneumonia he reports the dizziness has been a lot worse and much worse today. He was also notably started on alfuzosin in June for BPH symptoms which he reports has improved with this medication. With regards to his pneumonia diagnoses he was admitted at [facility] from July 27 - 2023 due to CAP and asthma exacerbation. Antibiotics were de-escalated to doxycycline alone with negative procalcitonin and no large area of consolidation. Oxygen was weaned off on day of discharge. He reports requiring re-admission to [facility] later the same month although records not available on admission. He notes being re-diagnosed with asthma exacerbation and pneumonia and again treated with antibiotics and steroids. He is currently on a tapering dose of steroids and will switch to prednisone 10mg PO daily tomorrow for 3 days then stop. He was unable to weaned off oxygen that admission and was discharged home with oxygen. He notes ongoing shortness of breath which is no where near his baseline prior to his pneumonia diagnoses. He has good and bad days but he does not feel this is progressively getting worse but also not improving. He reports not yet following up with pulmonology which is planned for next week. He took all his usual morning medications. Eating and drinking ok. Allergies Allergy/AdvReac Type Severity Reaction Status Date / Time Penicillins Allergy Severe Hives Verified 09/01/24 10:28 morphine AdvReac Severe Anaphylaxis Verified 09/01/24 10:28 phenytoin [From Dilantin] AdvReac Severe Anaphylaxis Verified 09/01/24 10:28 Home Medications Medication Instructions Recorded Confirmed Type loratadine 10 mg tablet (Claritin) 10 mg PO QAM 09/05/20 09/01/24 History cyanocobalamin (vitamin B-12) 500 500 mcg PO QAM 06/06/21 09/01/24 History mcg tablet (Vitamin B-12) fluticasone propionate 50 1 spray intranasal BID 06/26/22 09/01/24 History mcg/actuation nasal spray,suspension latanoprost 0.005 % eye drops 1 drp ophthalmic (eye) HS 07/10/22 09/01/24 History magnesium citrate 100 mg tablet 50 mg PO DAILY 11/20/22 09/01/24 History albuterol sulfate 90 mcg/actuation 1 - 2 puff inhalation .Q4-6H PRN 05/27/23 09/01/24 History aerosol inhaler (ProAir HFA) shortness of breath or wheezing polyethylene glycol 3350 17 gram 17 g PO BID PRN constipation #30 ea 05/29/23 09/01/24 Rx oral powder packet (Miralax) cholecalciferol (vitamin D3) 125 125 mcg PO DAILY 06/15/23 09/01/24 History mcg (5,000 unit) tablet (Vitamin D3) apixaban 5 mg tablet (Eliquis) 5 mg PO BID #180 tabs 11/04/23 09/01/24 Rx amiodarone 200 mg tablet 200 mg PO QPM #90 tabs 03/16/24 09/01/24 Rx cyclobenzaprine 10 mg tablet 10 mg PO BID PRN muscle spasm #90 03/30/24 09/01/24 Rx tabs linaclotide 145 mcg capsule See Rx Instructions .Route 05/30/24 09/01/24 Rx (Linzess) .COMPLEX #30 caps alfuzosin 10 mg tablet,extended 10 mg PO DAILY 07/26/24 09/01/24 History release 24 hr fluticasone furoate 100 1 inh inhalation Q24H #60 ea 07/26/24 09/01/24 Rx mcg-vilanterol 25 mcg/dose inhalation powder (Breo Ellipta) pantoprazole 40 mg tablet,delayed 40 mg PO QAM EOE #90 tabs 08/03/24 09/01/24 Rx release (Protonix) magnesium hydroxide 2,400 mg/10 mL 30 ml PO DAILY PRN Unknown 08/12/24 09/01/24 History oral suspension polyethylene glycol 3350 17 17 g PO DAILY 08/12/24 09/01/24 History gram/dose oral powder prednisone 20 mg tablet 20 mg PO .COMPLEX 08/12/24 09/01/24 History sennosides 15 mg tablet 15 mg PO DAILY PRN Constipation 08/12/24 09/01/24 History Past Med/Surg History Problem List Acute and chronic respiratory failure with hypoxia Acute hyponatremia (Acute) Acute interstitial pneumonia (Acute) Acute hypoxemic respiratory failure (Acute) CAP (community acquired pneumonia) LOVELL (dyspnea on exertion) Muscle spasticity On amiodarone therapy Fine motor impairment Hematochezia Mild left ventricular systolic dysfunction Lightheadedness Macrocytosis without anemia Cough Vitamin D deficiency Hereditary peripheral neuropathy Nutritional deficiency Weight loss Sensory polyneuropathy Limb ataxia Ataxic gait Aortic regurgitation Pulmonic regurgitation Tricuspid regurgitation Mitral regurgitation Normal left ventricular systolic function Fatigue Paroxysmal atrial fibrillation Encounter for monitoring anti-arrhythmic therapy Iron deficiency Vitamin B12 deficiency Shoulder pain, right Frequent falls Balance disorder Dyslipidemia Esophageal obstruction due to food impaction (Acute) Vertigo Left shoulder pain Orthostatic hypotension History of prostate cancer 2009- radiation therapy Difficulty swallowing (Acute) Chronic anticoagulation Eosinophilic esophagitis Asthma (Acute) Atrial fibrillation (Acute) on eliquis daily--follows w/ Dr Ceils 05/27/23 Organic impotence (Acute) Medical History Chest pain Bright red rectal bleeding Lower abdominal pain Acute dehydration Pneumonia recently hospitalized at [facility]- 05/2023; resolved Glaucoma Chronic cough COPD (chronic obstructive pulmonary disease) Severe protein-calorie malnutrition Seizure 12 yrs ago > result of severe asthma attack > one time incident Malignant neoplasm of prostate just radiation > resolved Surgical History H/O endoscopy History of lung biopsy History of cardioversion x4--for a fib History of esophagogastroduodenoscopy (EGD) last 06/2021 @ [facility] History of colonoscopy Hx of basal cell carcinoma excision History of tooth extraction History of tonsillectomy History of exploratory laparotomy H/O cataract extraction bilat History of right knee joint replacement H/O hernia repair H/O vasectomy Family History Mother , age 82 of cancer Breast cancer Myocardial infarction Father , age 84 of heart issues Myocardial infarction Brother Myocardial infarction Sister Age: 74 Cerebellar ataxia with neuropathy and bilateral vestibular areflexia syndrome Denies family history of Ovarian cancer Prostate cancer Colorectal cancer Social History Smoking Status: Never smoker Second Hand Exposure: Yes (as a child); Do You Dip or Chew Tobacco: No; Hx Alcohol Use: Yes Alcohol type: hard liquor Alcohol Intake Frequency: Monthly or Less Hx Substance Use: No Preferred Language: Slovenian Communication Ability: Effective Communication Ability Comment: [place] Visual Impairment: No Limitations Hearing Ability: Use of Hearing Aid Human Resources Officer Required: No Beliefs That Will Affect Care: None marital status: Current Living Situation: Spouse current occupational status: employed 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 How many Children do You have: 1 Other Information That Helps Us Care for You: No Feels Safe at Home: Yes Safety Concerns: Feels Safe At This Time Childhood Exposure to Second-Hand Smoke: Yes Diet: regular Diet Comment: regular caffeine: Yes during the past year weight has: remained stable Dental Care, Regularly: No Physical Activity Frequency: Daily Seatbelt Use: always Sunscreen Use: Yes Assistive Devices: Cane, Denture - Upper, Denture - Lower, Glasses, Hearing Aid - Bilateral, Oxygen - Continuous, Walker and Other Assistive Devices Comment: shower chair Review of Systems Review of Systems: All systems reviewed & are unremarkable except as noted in HPI & below Physical Exam Constitutional: WD/WN, vitals as above ENMT: external ear and nose normal, oropharynx normal Respiratory: normal respiratory effort; no respiratory distress Auscultation: + crackles (fine bilaterally posteriorly, clear anteriorly); no wheezes Cardiovascular: Rate/Rhythm: regular rate and regular rhythm Heart Sounds: no murmur Extremities: normal capillary refill; no calf tenderness and no pedal edema Gastrointestinal (Abdomen): normal bowel sounds, soft, nontender, no hepatosplenomegaly Musculoskeletal: no cyanosis or clubbing, extremities motor strength 5/5 Skin: no rashes, warm and dry Neurologic: moves all extremities and awake; not confused Psychiatric: A+Ox3, euthymic affect Results & Data Results & Data Vital Signs (Past 12 Hours) Vital Signs Temp Pulse Pulse Resp BP BP Pulse Ox 09/01/24 11:24 69 09/01/24 11:22 36.3 C L 63 24 93/73 L 98 09/01/24 11:22 98 09/01/24 11:22 36.3 C L 63 24 93/73 L 98 O2 Del Method O2 Flow Rate 09/01/24 11:24 09/01/24 11:22 Nasal Cannula 5 09/01/24 11:22 Nasal Cannula 5 09/01/24 11:22 Nasal Cannula 5 Laboratory Results Abnormal lab results 09/01/24 Range/Units 11:19 WBC 14.52 H (4.8-10.8) K/ul RBC 4.19 L (4.70-6.10) M/uL Hgb 13.6 L (14.0-18.0) g/dl MCV 101.2 H (80.0-100.0) fL RDW Std Deviation 54.9 H (36.4-46.3) fL RDW Coeff of Janet 14.8 H (11.5-14.5) % Neut # (Auto) 12.49 H (1.40-6.50) K/uL Lymph # (Auto) 0.98 L (1.20-3.40) K/uL [place] # (Auto) 0.77 H (0.11-0.59) K/uL VBG pH 7.33 L (7.36-7.41) VBG pCO2 58 H (38-50) mmHg Sodium 134 L (136-145) mmol/L Glucose 165 H (70-99(Fasting)) mg/dl Diagnostic Findings XR chest 1V portable CLINICAL HISTORY: Cough. COMPARISON STUDY: Chest radiograph July 27, [address] July 28, 2024. FINDINGS: There is no pneumothorax or pleural effusion. Postoperative findings within the left upper lung are again noted. Reticulonodular interstitial thickening is stable to slightly improved since prior chest radiograph and chest CT. No superimposed consolidation is identified. Cardiomediastinal silhouette is stable. IMPRESSION: Reticulonodular interstitial thickening, stable to slightly improved since prior chest radiograph and chest CT. This remains nonspecific and continued imaging follow-up is recommended. No superimposed consolidation identified. Medications Administered ER Medications Given ECG Rate (beats per minute): 69 Rhythm: normal sinus Findings: + PVC Comparison ECG Date: from (July 27, 2024) Change: the following changes noted (PVCs now present) Code Status & VTE Plan Code Status Full PG Care Time/CCT Total # of Minutes Spent Total Time Spent with Patient: Total time spent is greater than 50% in coordination of care (as documented) at patient's floor/unit and/or counseling patient: Coding Level of Care Code 42316 INT INP/OBS CARE 3/75MIN Diagnoses Orthostatic hypotension I95.1 Acute and chronic respiratory failure with hypoxia J96.21 Permanent atrial fibrillation I48.21 Atrial fibrillation type: permanent Mild intermittent asthma without complication J45.20 Asthma severity: mild Asthma persistence: intermittent Asthma complication type: uncomplicated (3) Atrial fibrillation Atrial fibrillation type: permanent Qualified Code(s): I48.21 - Permanent atrial fibrillation (4) Asthma Asthma severity: mild Asthma persistence: intermittent Asthma complication type: uncomplicated Qualified Code(s): J45.20 - Mild intermittent asthma, uncomplicated
[2024-09-01] MEDS: FLUDROCORTISONE ACETATE 0.1 MG TAB PO ONE (15:38)
[2024-09-01 16:44] LABS: Adenovirus PCR Not Detected (NotDetected); Bordetella parapertussis PCR Not Detected (NotDetected); Bordetella pertussis PCR Not Detected (NotDetected); Chlamydia pneumoniae PCR Not Detected (NotDetected); Coronavirus 229E PCR Not Detected (NotDetected); Coronavirus CoV-2 (COVID19)PCR Not Detected (NotDetected); Coronavirus HKU1 PCR Not Detected (NotDetected); Coronavirus NL63 PCR Not Detected (NotDetected); Coronavirus OC43PCR Not Detected (NotDetected); Human Metapneumovirus PCR Not Detected (NotDetected); Influenza A PCR Not Detected (NotDetected); Influenza B PCR Not Detected (NotDetected); Mycoplasma pneumoniae PCR Not Detected (NotDetected); Parainfluenza Virus 1 PCR Not Detected (NotDetected); Parainfluenza Virus 2 PCR Not Detected (NotDetected); Parainfluenza Virus 3 PCR Not Detected (NotDetected); Parainfluenza Virus 4 PCR Not Detected (NotDetected); Respiratory Syncytial VirusPCR Not Detected (NotDetected); Rhinovirus/Enterovirus PCR Not Detected (NotDetected)
[2024-09-01] MEDS: FLUTICASONE/VILANTEROL 100/25MCG 14 PUFFS/INHALER INH SCH (21:21)
[2024-09-01] MEDS: FLUTICASONE PROPIONATE NA SPR 16 GM BTL NAE SCH (21:21)
[2024-09-01] MEDS: AMIODARONE 200 MG TAB PO SCH (21:22)
[2024-09-01] MEDS: APIXABAN 5 MG TABLET PO SCH (21:22)
[2024-09-01] MEDS: LATANOPROST 0.005% OP SOLN 2.5 ML BTL OP SCH (21:22)
[2024-09-02 07:50] LABS: Base Excess VBG 3.4 mEq/L; HCO3 VBG 30 mmol/L; Oxygen Saturation VBG < 60.0 %; PCO2 VBG 50 mmHg (38-50); PO2 VBG 37 mmHg; pH VBG 7.38 (7.36-7.41)
[2024-09-02] MEDS: FLUDROCORTISONE ACETATE 0.1 MG TAB PO SCH (07:59)
[2024-09-02] MEDS: LINACLOTIDE 145 MCG CAPSULE PO SCH (08:00)
[2024-09-02] MEDS: predniSONE 10 MG TABLET PO SCH (08:00)
[2024-09-02] MEDS: TAMSULOSIN HCL 0.4 MG CAP PO SCH (08:00)
[2024-09-02] MEDS: LORATADINE 10 MG TAB PO SCH (08:00)
[2024-09-02] MEDS: PANTOprazole 40 MG TAB PO SCH (08:00)
[2024-09-02 08:01] LABS: Basophils # (auto) 0.02 K/uL (0.00-0.20); Basophils % (auto) 0.2 %; Eosinophils # (auto) 0.08 K/uL (0.00-0.50); Eosinophils % (auto) 0.7 %; Hemoglobin 12.4 g/dl (14.0-18.0); Immature Granulocytes # (auto) 0.06 K/uL (0.01-0.20); Immature Granulocytes % (auto) 0.5 %; Lymphocytes # (auto) 0.83 K/uL (1.20-3.40); Lymphocytes % (auto) 6.9 %; Mean Corpuscular Hemoglobin 32.6 pg (25.0-34.0); Mean Corpuscular Hgb Conc 32.6 g/dL (32.0-36.0); Mean Platelet Volume 9.1 fL (9.4-12.4); Monocytes # (auto) 0.47 K/uL (0.11-0.59); Monocytes % (auto) 3.9 %; Neutrophils # (auto) 10.55 K/uL (1.40-6.50); Neutrophils % (auto) 87.8 %; Platelet Count 138 K/uL (130-400); RDW Standard Deviation 55.2 fL (36.4-46.3); White Blood Count 12.01 K/ul (4.8-10.8)
[2024-09-02] MEDS: POLYETHYLENE (MIRALAX) 17 GM PACK PO SCH (08:04)
[2024-09-02] MEDS: ACETAMINOPHEN 325 MG TAB PO PRN (08:04)
[2024-09-02 08:17] LABS: Albumin Globulin Ratio 1.6 (0.9-2); Albumin Level 3.2 gm/dl (3.4-5.0); BUN Creatinine Ratio 18.8 (10-20); Bilirubin,Total 0.5 mg/dl (0.2-1.0); Creatinine Clr Calc Pharmacy 53.2 ml/min; Potassium 4.1 mmol/L (3.5-5.1); Total Protein 5.2 gm/dl (6.0-8.3)
[2024-09-02] MEDS ORDERED: IBUPROFEN 200 MG TAB PO PRN (09:05)
--- NOTE | 2024-09-02 10:09 | Pulmonary Consultation ---
Date of Consultation September 02, 2024 Assessment & Plan (1) Abnormal CT scan of lung: (2) Acute and chronic respiratory failure with hypoxia: (3) Mild left ventricular systolic dysfunction: Plan Impression: 78-year-old male with progressive neurological disorder admitted with shortness of breath. He is imaging studies from last month did demonstrate a nodular appearance to the right lung which appears somewhat improved on current chest x-ray. The etiology of his hypoxemia appears multifactorial with combinations of pulmonary hypertension, potential neuromuscular weakness, possible intermittent aspiration, and potential structural lung disease. Recommendations: 1. Recommend repeating video swallow study to evaluate for aspiration. Speech therapy consultation recommended given his neurological issues. 2. Proceed with CT scan of the chest to evaluate for the parenchymal abnormalities identified on prior CT scan although chest x-ray suggest that these abnormalities are improved. Patient is anticoagulated and on amiodarone so I do not think a PE protocol is required at this point in time. If the radiographic abnormalities persist, additional serological and tissue evaluation might be appropriate. 3. Patient had normal PFTs performed in December 2023. Would recommend repeating them in the outpatient setting once the patient is clinically stable. I do not suspect this is asthma and inhalers are not warranted. Unclear why he is on steroids but I do not see an indication for continuing these from a respiratory standpoint. Deferred to primary admitting service. 4. Hypercarbia: Will need to assess respiratory muscle strength including MIP/MEP/MVV when his PFTs are performed. We discussed CPAP and BiPAP however the patient is quite adamantly opposed to considering any of these options at this point in time. There is a correlation between sleep disordered breathing and the specific neurodegenerative condition this patient has. Could consider outpatient polysomnography but again the patient is quite reluctant to consider CPAP or BiPAP at this time even if it were to prolong his life. Hypercarbia is certainly contributing to the patient's hypoxemia. 5. Initiate incentive spirometry and flutter valve. 6. Do not believe amiodarone is contributing currently and the risk-benefit ratio would favor continuing the medication at this point in time. The majority of this workup from a lung standpoint can be conducted in the outpatient setting and much of the testing will need to be conducted in the outpatient setting once the patient is clinically stable. From a respiratory standpoint, he may be able to be dismissed from the hospital if oxygen can be arranged in the outpatient setting. I would be happy to see him back in clinic to perform his additional workup. Will continue to follow while the patient is hospitalized with you. Feel free to contact us with questions or concerns History of Present Illness Attending Physician: Gucci Moody MD History of Present Illness Asked by hospitalist to assist in evaluation management this patient with hypoxemic respiratory failure and a complex medical history. History is obtained from discussion with the patient and review the electronic medical record. Patient is a 78-year-old male with a history of CANVA syndrome (cerebellar ataxia, neuropathy, and vestibular areflexia syndrome) with autonomic dysreflexia who was admitted after being referred from the cardiology office with hypotension. He has a pending pulmonary consult placed by his primary care provider to evaluate him for supplemental oxygen. The patient is in the hospital awake alert and conversant. His is at bedside who provides some additional history. Patient reports that 1 month ago he was admitted to [facility] and transferred to [facility]. He was treated for pneumonia. He was then admitted to our facility in July with pneumonia/asthma exacerbation. He did not require oxygen at the time of discharge. He is followed with his primary care provider and has been tapered off of prednisone. He has continued shortness of breath. He is been seen by neurology and unfortunately there is no specific therapy for his syndrome. He ambulates with the assistance of a walker and does have significant spasticity. Patient completed pulmonary function testing about 6 months ago with results noted below. He has not had a prior sleep study evaluation. His does report some snoring but no obvious witnessed apnea that she is aware of. The patient is adamantly opposed to considering noninvasive positive pressure ventilation and requests that he not be placed on a mechanical ventilator in the event of respiratory failure. Patient is a lifelong non-smoker. 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 No other environmental or occupational exposures. No family history of lung disease that he is aware of Allergies Allergy/AdvReac Type Severity Reaction Status Date / Time Penicillins Allergy Severe Hives Verified 09/01/24 10:28 morphine AdvReac Severe Anaphylaxis Verified 09/01/24 10:28 phenytoin [From Dilantin] AdvReac Severe Anaphylaxis Verified 09/01/24 10:28 Home Medications Medication Instructions Recorded Confirmed Type loratadine 10 mg tablet (Claritin) 10 mg PO QAM 09/05/20 09/01/24 History cyanocobalamin (vitamin B-12) 500 500 mcg PO QAM 06/06/21 09/01/24 History mcg tablet (Vitamin B-12) fluticasone propionate 50 1 spray intranasal BID 06/26/22 09/01/24 History mcg/actuation nasal spray,suspension latanoprost 0.005 % eye drops 1 drp ophthalmic (eye) HS 07/10/22 09/01/24 History magnesium citrate 100 mg tablet 50 mg PO DAILY 11/20/22 09/01/24 History albuterol sulfate 90 mcg/actuation 1 - 2 puff inhalation .Q4-6H PRN 05/27/23 09/01/24 History aerosol inhaler (ProAir HFA) shortness of breath or wheezing polyethylene glycol 3350 17 gram 17 g PO BID PRN constipation #30 ea 05/29/23 09/01/24 Rx oral powder packet (Miralax) cholecalciferol (vitamin D3) 125 125 mcg PO DAILY 06/15/23 09/01/24 History mcg (5,000 unit) tablet (Vitamin D3) apixaban 5 mg tablet (Eliquis) 5 mg PO BID #180 tabs 11/04/23 09/01/24 Rx amiodarone 200 mg tablet 200 mg PO QPM #90 tabs 03/16/24 09/01/24 Rx cyclobenzaprine 10 mg tablet 10 mg PO BID PRN muscle spasm #90 03/30/24 09/01/24 Rx tabs linaclotide 145 mcg capsule See Rx Instructions .Route 05/30/24 09/01/24 Rx (Linzess) .COMPLEX #30 caps alfuzosin 10 mg tablet,extended 10 mg PO DAILY 07/26/24 09/01/24 History release 24 hr fluticasone furoate 100 1 inh inhalation Q24H #60 ea 07/26/24 09/01/24 Rx mcg-vilanterol 25 mcg/dose inhalation powder (Breo Ellipta) pantoprazole 40 mg tablet,delayed 40 mg PO QAM EOE #90 tabs 08/03/24 09/01/24 Rx release (Protonix) magnesium hydroxide 2,400 mg/10 mL 30 ml PO DAILY PRN Unknown 08/12/24 09/01/24 History oral suspension polyethylene glycol 3350 17 17 g PO DAILY 08/12/24 09/01/24 History gram/dose oral powder prednisone 20 mg tablet 20 mg PO .COMPLEX 08/12/24 09/01/24 History sennosides 15 mg tablet 15 mg PO DAILY PRN Constipation 08/12/24 09/01/24 History Patient History Medical History Chest pain Bright red rectal bleeding Lower abdominal pain Acute dehydration Pneumonia recently hospitalized at [facility]- 05/2023; resolved Glaucoma Chronic cough COPD (chronic obstructive pulmonary disease) Severe protein-calorie malnutrition Seizure 12 yrs ago > result of severe asthma attack > one time incident Malignant neoplasm of prostate just radiation > resolved Surgical History H/O endoscopy History of lung biopsy History of cardioversion x4--for a fib History of esophagogastroduodenoscopy (EGD) last 06/2021 @ [facility] History of colonoscopy Hx of basal cell carcinoma excision History of tooth extraction History of tonsillectomy History of exploratory laparotomy H/O cataract extraction bilat History of right knee joint replacement H/O hernia repair H/O vasectomy Family History Mother , age 82 of cancer Breast cancer Myocardial infarction Father , age 84 of heart issues Myocardial infarction Brother Myocardial infarction Sister Age: 74 Cerebellar ataxia with neuropathy and bilateral vestibular areflexia syndrome Denies family history of Ovarian cancer Prostate cancer Colorectal cancer Social History Smoking Status: Never smoker Second Hand Exposure: Yes (as a child); Do You Dip or Chew Tobacco: No; Hx Alcohol Use: Yes Alcohol type: hard liquor Alcohol Intake Frequency: Monthly or Less Hx Substance Use: No Preferred Language: Hungarian Communication Ability: Effective Communication Ability Comment: [place] Visual Impairment: No Limitations Hearing Ability: Use of Hearing Aid Rides Supervisor Required: No Beliefs That Will Affect Care: None marital status: Current Living Situation: Spouse current occupational status: employed 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 How many Children do You have: 1 Other Information That Helps Us Care for You: No Feels Safe at Home: Yes Safety Concerns: Feels Safe At This Time Childhood Exposure to Second-Hand Smoke: Yes Diet: regular Diet Comment: regular caffeine: Yes during the past year weight has: remained stable Dental Care, Regularly: No Physical Activity Frequency: Daily Seatbelt Use: always Sunscreen Use: Yes Assistive Devices: Cane, Denture - Upper, Denture - Lower, Glasses, Hearing Aid - Bilateral, Oxygen - Continuous, Walker and Other Assistive Devices Comment: shower chair Review of Systems Review of Systems: Please refer to admission H&P. No additions or deletions Physical Exam Constitutional: WD/WN, vitals as above + ill appearing, + disheveled and cooperative; no acute distress ENMT: external ear and nose normal, oropharynx normal Respiratory: normal respiratory effort; no respiratory distress Auscultation: no crackles and no wheezes Cardiovascular: Rate/Rhythm: regular rate and regular rhythm Heart Sounds: no murmur Extremities: normal capillary refill; no calf tenderness and no pedal edema Gastrointestinal (Abdomen): normal bowel sounds, soft, nontender, no hepatosplenomegaly Musculoskeletal: no cyanosis or clubbing, extremities motor strength 5/5 Skin: no rashes, warm and dry Neurologic: moves all extremities and awake; not confused Psychiatric: A+Ox3, euthymic affect Results & Data Results & Data Vital Signs (Past 12 Hours) Vital Signs Temp Pulse Pulse Resp BP BP Pulse Ox 09/02/24 08:40 09/02/24 07:40 104/69 93 09/02/24 07:30 36.3 C L 77 18 95/56 L 90 09/02/24 07:10 72 09/02/24 04:41 36.9 C 75 20 108/65 92 09/02/24 00:27 36.5 C 74 20 119/76 92 09/01/24 23:00 74 O2 Del Method O2 Flow Rate 09/02/24 08:40 Nasal Cannula 4 09/02/24 07:40 Nasal Cannula 4 09/02/24 07:30 Nasal Cannula 2 09/02/24 07:10 09/02/24 04:41 Nasal Cannula 2 09/02/24 00:27 Room Air 09/01/24 23:00 Diagnostic Findings Pulmonary function test performed 12/30/2023 showed an FEV1 of 3.11 L or 112% predicted with an FVC of 3.9 L or 100% predicted and a ratio of 79. No change after administration of inhaled bronchodilators. Lung volumes showed a total lung capacity of 99% predicted with an FRC of 92% predicted and an RV of 110% predicted. Diffusion capacity was 92% predicted. Study was essentially normal. Critical Care Results & Data Vital Signs (Past 12 Hours) Vital Signs Temp Pulse Pulse Resp BP BP Pulse Ox 09/02/24 08:40 09/02/24 07:40 104/69 93 09/02/24 07:30 36.3 C L 77 18 95/56 L 90 09/02/24 07:10 72 09/02/24 04:41 36.9 C 75 20 108/65 92 09/02/24 00:27 36.5 C 74 20 119/76 92 09/01/24 23:00 74 O2 Del Method O2 Flow Rate 09/02/24 08:40 Nasal Cannula 4 09/02/24 07:40 Nasal Cannula 4 09/02/24 07:30 Nasal Cannula 2 09/02/24 07:10 09/02/24 04:41 Nasal Cannula 2 09/02/24 00:27 Room Air 09/01/24 23:00 Lab & Micro Results (Past 24 Hours) RBC 3.80 M/uL (4.70-6.10) L 09/02/24 WBC 12.01 K/ul (4.8-10.8) H 09/02/24 Hgb 12.4 g/dl (14.0-18.0) L 09/02/24 Hct 38.0 % (42.0-52.0) L 09/02/24 MCV 100.0 fL (80.0-100.0) 09/02/24 MCH 32.6 pg (25.0-34.0) 09/02/24 MCHC 32.6 g/dL (32.0-36.0) 09/02/24 RDW Standard Deviation 55.2 fL (36.4-46.3) H 09/02/24 RDW Coefficient of Variation 15.0 % (11.5-14.5) H 09/02/24 Plt Count 138 K/uL (130-400) 09/02/24 MPV 9.1 fL (9.4-12.4) L 09/02/24 Neutrophils (%) (Auto) 87.8 % 09/02/24 Lymphocytes (%) (Auto) 6.9 % 09/02/24 Monocytes # (Auto) 0.47 K/uL (0.11-0.59) 09/02/24 Eosinophils # (Auto) 0.08 K/uL (0.00-0.50) 09/02/24 Immature Granulocyte % (Auto) 0.5 % 09/02/24 Neutrophils # (Auto) 10.55 K/uL (1.40-6.50) H 09/02/24 Lymphocytes # (Auto) 0.83 K/uL (1.20-3.40) L 09/02/24 Monocytes # (Auto) 0.47 K/uL (0.11-0.59) 09/02/24 Eosinophils # (Auto) 0.08 K/uL (0.00-0.50) 09/02/24 Basophils # (Auto) 0.02 K/uL (0.00-0.20) 09/02/24 Immature Granulocyte # (Auto) 0.06 K/uL (0.01-0.20) 5 Na 140 mmol/L (136-145) 09/02/24 K 4.1 mmol/L (3.5-5.1) 09/02/24 Cl 106 mmol/L (98-107) 09/02/24 CO2 29 mmol/L (21-32) 09/02/24 Anion Gap 5 (3-11) 09/02/24 BUN 19 mg/dl (6-23) 09/02/24 Creatinine 1.01 mg/dl (0.6-1.4) 09/02/24 BUN/Creatinine Ratio 18.8 (10-20) 09/02/24 Glu 90 mg/dl (70-99(Fasting)) 09/02/24 Ca 8.0 mg/dl (8.6-10.3) L 09/02/24 Total Bilirubin 0.5 mg/dl (0.2-1.0) 09/02/24 AST 13 U/L (13-39) 09/02/24 ALT 17 U/L (7-52) 09/02/24 Alkaline Phosphatase 58 U/L (34-104) 09/02/24 TP 5.2 gm/dl (6.0-8.3) L 09/02/24 Albumin 3.2 gm/dl (3.4-5.0) L 09/02/24 Globulin 2.0 gm/dl (2.5-4.0) L 09/02/24 Albumin/Globulin Ratio 1.6 (0.9-2) 09/02/24 Mg 2.4 mg/dl (1.7-2.4) 09/01/24 11:19 Calcium Level 8.0 mg/dl (8.6-10.3) L 09/02/24 07:41 Venous Blood pH 7.38 (7.36-7.41) 09/02/24 07:41 Venous Blood Partial Pressure CO2 50 mmHg (38-50) 09/02/24 07:4 1 Venous Blood Partial Pressure O2 37 mmHg 09/02/24 07:41 Venous Blood HCO3 30 mmol/L 09/02/24 07:41 Venous Blood Base Excess 3.4 mEq/L 09/02/24 07:41 Venous Blood Oxygen Saturation < 60.0 % 09/02/24 07:41 Diagnostic Findings (Past 24 Hours) Chest X-Ray 09/01/24 12:22 XR chest 1V portable CLINICAL HISTORY: Cough. COMPARISON STUDY: Chest radiograph July 27, [address] July 28, 2024. FINDINGS: There is no pneumothorax or pleural effusion. Postoperative findings within the left upper lung are again noted. Reticulonodular interstitial thickening is stable to slightly improved since prior chest radiograph and chest CT. No superimposed consolidation is identified. Cardiomediastinal silhouette is stable. IMPRESSION: Reticulonodular interstitial thickening, stable to slightly improved since prior chest radiograph and chest CT. This remains nonspecific and continued imaging follow-up is recommended. No superimposed consolidation identified. ACT 112: Negative or not required by law. Electronically signed by: Sai Brown M.D. 09/01/2024 1:10 PM I & O Totals 24 Hours 09/01/24 09/02/24 09/03/24 06:59 06:59 06:59 Intake Total 510 / 510 Balance 510 / 510 Cumulative 09/01/24 11:05 thru 09/02/24 06:38 Intake Total 510 Balance 510 RT Ventilator Mngmt (Last Documented) Ventilator Ordered Settings Respiratory Rate 18 09/02/24 07:30 Ventilator - PT Measurements Respiratory Rate 18 PG Care Time/CCT Total # of Minutes Spent Total Time Spent with Patient: Total time spent is greater than 50% in coordination of care (as documented) at patient's floor/unit and/or counseling patient: Coding Level of Care Code 39955 INT INP/OBS CARE MIN Diagnoses Abnormal CT scan of lung R91.8 Acute and chronic respiratory failure with hypoxia J96.21 Mild left ventricular systolic dysfunction I51.89
--- NOTE | 2024-09-02 11:50 | CT Scan Report ---
CT OF THE CHEST WITHOUT IV CONTRAST CLINICAL HISTORY: Follow-up nodular opacities. COMPARISON STUDY: Chest CT July 28, 2024. Chest radiograph September 01, 2024. CT of the abdomen and pelvis August 07, 2023. CT DOSE: 247.97 mGy.cm TECHNIQUE: Axial images of the chest were obtained without IV contrast. Images were reviewed in the axial, sagittal, and coronal planes. IV contrast was not administered for this examination. Automat ed exposure control was utilized for the study. A dose lowering technique was utilized adhering to t he principles of ALARA. FINDINGS: No enlarged axillary, mediastinal or hilar lymph nodes are present. The heart is mildly en larged. Innumerable centrilobular nodules throughout the lungs are noted. These are greater within th e right lung. Several foci have improved since CT of July 28, 2024. However, more confluent foci o f consolidation and linear densities within the right lung have developed. There is no cavitation. Th ere is no honeycombing. No bronchiectasis is identified. There are postoperative findings within the left lung. No fractures are fractures are present. Hypodense hepatic lesions are unchanged. These fav or cysts. There is a small hiatal hernia. IMPRESSION: Innumerable centrilobular nodules throughout the lungs, greater within the right lung. M ultiple foci have improved since CT of July 28, 2024. However, multiple small more confluent opaci ties and linear densities within the right lung have developed. The findings remain nonspecific altho ugh favor bronchiolitis/small airways disease. Differential considerations include an infectious proc ess, sequela of aspiration and hypersensitivity pneumonitis. Developing fibrotic change within the ri ght lung would be difficult to exclude. An underlying neoplastic etiology is considered unlikely calvo tim continued imaging follow-up to ensure resolution is recommended. ACT 112: Negative or not required by law. Electronically signed by: Sia Brown M.D. 09/02/2024 11:48 AM
[2024-09-02] MEDS: AZITHROMYCIN 250 MG TAB PO ONE (17:49)
[2024-09-02] MEDS: cefTRIAXone SODIUM 2,000 MG/50 ML BAG IV SCH (17:49)
[2024-09-02] MEDS: metroNIDAZOLE 500 MG/100 ML BAG IV SCH (17:49)
--- NOTE | 2024-09-02 18:05 | Hospitalist Progress Note ---
Date of Service September 02, 2024 Assessment & Plan (1) Orthostatic hypotension: Plan: This is a longstanding issue although acutely worse - I made reference to this in my H&P in May 2023 but he was taking lisinopril at that time, which was discontinued. Likely made worse since he was started on alfuzosin in June. Will switch to tamsulosin. Improved with fludrocortisone 0.1mg PO daily sBP drop by 20 while on fludrocortisone today but not symptomatic anymore. (2) Acute and chronic respiratory failure with hypoxia: Plan: Multiple episode of pneumonia diagnosed in July culminating with needing continuous oxygen which he did not require prior to [place] admission in July. Amiodarone not suspected to be causing his lung issues per pulmonology Continue taper of steroids from prior hospitalization Biofire negative CT chest ordered by pulmonology and on discussion recommended starting antibiotics including anaerobic coverage and SLT consult Start ceftriaxone, metronidazole and azithromycin (3) Atrial fibrillation: Plan: Paroxysmal Currently in NSR Continue on amiodarone for rhythm control Continue on Eliquis for stroke prophylaxis (4) Asthma: Plan: Continue fluticasone/vilanterol INH daily or hospital formulary equivalent No current wheezing to suggest acute exacerbation (5) Abnormal CT scan of lung: (6) Pneumonia: Plan VTE Prophylaxis - Eliquis Diet - regular Disposition - admit to med/tele Admission and Anticipated Discharge Date Admission Date: September 01, 2024 Subjective Improved dizziness with fludrocortisone. Requiring 4LPM O2 but breathing similar since recent hospitalization in July. Physical Exam Constitutional: WD/WN, vitals as above ENMT: external ear and nose normal, oropharynx normal Respiratory: normal respiratory effort; no respiratory distress Auscultation: + crackles (fine bilaterally posteriorly, clear anteriorly); no wheezes Cardiovascular: Rate/Rhythm: regular rate and regular rhythm Heart Sounds: no murmur Extremities: no calf tenderness and no pedal edema Neurologic: moves all extremities and awake; not confused Psychiatric: A+Ox3, euthymic affect Results & Data Results & Data Vital Signs (Past 12 Hours) Vital Signs Temp Pulse Pulse Resp BP BP Pulse Ox 09/02/24 15:27 36.2 C L 73 18 110/73 96 09/02/24 14:00 79 09/02/24 11:33 36.3 C L 76 18 103/68 92 09/02/24 08:40 09/02/24 07:40 104/69 93 09/02/24 07:30 36.3 C L 77 18 95/56 L 90 09/02/24 07:10 72 O2 Del Method O2 Flow Rate 09/02/24 15:27 Nasal Cannula 4 09/02/24 14:00 09/02/24 11:33 Nasal Cannula 4 09/02/24 08:40 Nasal Cannula 4 09/02/24 07:40 Nasal Cannula 4 09/02/24 07:30 Nasal Cannula 2 09/02/24 07:10 PG Care Time/CCT Total # of Minutes Spent Total Time Spent with Patient: Total time spent is greater than 50% in coordination of care (as documented) at patient's floor/unit and/or counseling patient: Coding Level of Care Code 72981 SUB INP/OBS CARE 3/50MIN Diagnoses Orthostatic hypotension I95.1 Acute and chronic respiratory failure with hypoxia J96.21 Permanent atrial fibrillation I48.21 Atrial fibrillation type: permanent Mild intermittent asthma without complication J45.20 Asthma complication type: uncomplicated Asthma persistence: intermittent Asthma severity: mild Abnormal CT scan of lung R91.8 Pneumonia J18.9 (3) Atrial fibrillation Atrial fibrillation type: permanent Qualified Code(s): I48.21 - Permanent atrial fibrillation (4) Asthma Asthma complication type: uncomplicated Asthma persistence: intermittent Asthma severity: mild Qualified Code(s): J45.20 - Mild intermittent asthma, uncomplicated
--- NOTE | 2024-09-03 08:52 | Pulmonology Progress Note ---
Date of Service September 03, 2024 Assessment & Plan (1) Abnormal CT scan of lung: (2) Acute and chronic respiratory failure with hypoxia: (3) Mild left ventricular systolic dysfunction: Plan Impression: 78-year-old male with progressive neurological disorder admitted with shortness of breath. He is imaging studies from last month did demonstrate a nodular appearance to the right lung which appears somewhat improved on current chest x-ray. The etiology of his hypoxemia appears multifactorial with combinations of pulmonary hypertension, potential neuromuscular weakness, possible intermittent aspiration, and potential structural lung disease. CT of his chest did demonstrate some progression of the consolidation which appeared to be mainly located on the right side. Recommendations: 1. Recommend repeating video swallow study to evaluate for aspiration. Speech therapy consultation recommended given his neurological issues. 2. Differential diagnosis for the abnormalities on the CT scan is broad and would include recurrent aspiration, interstitial lung disease, infectious etiologies or inflammatory etiologies. Will await speech therapy evaluation to exclude aspiration. Complete course of antibiotics. The patient reports hives with penicillin but this is a remote allergy and I think he can be rechallenged with oral Augmentin while in the hospital. Continue azithromycin for atypical coverage. Depending on findings of his swallow study and response to antibiotics, could consider bronchoscopy with bronchoalveolar lavage and transbronchial biopsies to better define the pulmonary process. If the patient remains here over the weekend, could consider bronchoscopy early next week. Otherwise he can go home after his swallow study if no aspiration, complete antibiotics, and follow-up with us in the pulmonary clinic. 3. Patient had normal PFTs performed in December 2023. Would recommend repeating them in the outpatient setting once the patient is clinically stable. I do not suspect this is asthma and inhalers are not warranted. Unclear why he is on steroids but I do not see an indication for continuing these from a respiratory standpoint. Deferred to primary admitting service. 4. Hypercarbia: Will need to assess respiratory muscle strength including MIP/MEP/MVV when his PFTs are performed. We discussed CPAP and BiPAP however the patient is quite adamantly opposed to considering any of these options at this point in time. There is a correlation between sleep disordered breathing and the specific neurodegenerative condition this patient has. Could consider outpatient polysomnography but again the patient is quite reluctant to consider CPAP or BiPAP at this time even if it were to prolong his life. Hypercarbia is certainly contributing to the patient's hypoxemia. 5. Continue incentive spirometry and flutter valve. 6. Do not believe amiodarone is contributing currently and the risk-benefit ratio would favor continuing the medication at this point in time. Discussed with patient at bedside. Await swallow evaluation Admission and Anticipated Discharge Date Admission Date: September 01, 2024 Subjective Patient seen and examined. EMR reviewed. The patient states he is doing better. He slept well last night. He is coughing but not really expectorating much in the way of phlegm. He denies chest pain or palpitations. He is pending speech evaluation Review of Systems 2 Review of Systems: All systems reviewed & are unremarkable except as noted in Subjective Physical Exam 2 Constitutional: WD/WN, vitals as above + ill appearing, + disheveled and cooperative; no acute distress ENMT: external ear and nose normal, oropharynx normal Respiratory: normal respiratory effort; no respiratory distress A uscultation: no crackles and no wheezes Cardiovascular: Rate/Rhythm: regular rate and regular rhythm Heart Sounds: no murmur Extremities: normal capillary refill; no calf tenderness and no pedal edema Gastrointestinal (Abdomen): normal bowel sounds, soft, nontender, no hepatosplenomegaly Skin: no rashes, warm and dry Neurologic: moves all extremities and awake; not confused Psychiatric: A+Ox3, euthymic affect Results & Data Results & Data Vital Signs (Past 12 Hours) Vital Signs Temp Pulse Pulse Resp BP BP Pulse Ox 09/03/24 08:15 09/03/24 08:02 36.7 C 80 16 97/62 L 96 09/03/24 07:37 71 09/03/24 04:00 36.7 C 74 18 122/76 96 09/02/24 23:33 70 09/02/24 22:35 36.4 C L 75 18 166/90 H 97 O2 Del Method O2 Flow Rate 09/03/24 08:15 Nasal Cannula 4 09/03/24 08:02 Nasal Cannula 4 09/03/24 07:37 09/03/24 04:00 Nasal Cannula 4 09/02/24 23:33 09/02/24 22:35 Nasal Cannula 4 Laboratory Results 09/02/24 07:41 09/02/24 07:41 PG Care Time/CCT Total # of Minutes Spent Total Time Spent with Patient: Total time spent is greater than 50% in coordination of care (as documented) at patient's floor/unit and/or counseling patient: Coding Level of Care Code 09635 SUB INP/OBS CARE 350MIN Diagnoses Abnormal CT scan of lung R91.8 Acute and chronic respiratory failure with hypoxia J96.21 Mild left ventricular systolic dysfunction I51.89
[2024-09-03] MEDS: AZITHROMYCIN 250 MG TAB PO SCH (10:13)
--- NOTE | 2024-09-03 12:36 | Hospitalist Progress Note ---
Date of Service September 03, 2024 Assessment & Plan (1) Acute and chronic respiratory failure with hypoxia: Plan: Patient has had Multiple episode of pneumonia diagnosed in July culminating with needing continuous oxygen which he did not require prior to [place] adm ission in July. Etiology is uncertain, could be a combination of factors, including numerous pulmonary nodules seen on CT, fibrosis or pulm HTN Amiodarone not suspected to be causing his lung issues per pulmonology Biofire negative continue augmentin and Azithromycin Plan is for bronchoscopy and PFT at some point will evaluate for aspiration by speech on 09/05 currently on 4L of oxygen, was on 2L at home (2) Orthostatic hypotension: Plan: This is a longstanding issue although acutely worse - I made reference to this in my H&P in May 2023 but he was taking lisinopril at that time, which was discontinued. Likely made worse since he was started on alfuzosin in June. Will switch to tamsulosin. Improved with fludrocortisone 0.1mg PO daily sBP drop by 20 while on fludrocortisone today but not symptomatic anymore. (3) Atrial fibrillation: Plan: Paroxysmal Currently in NSR Continue on amiodarone for rhythm control Continue on Eliquis for stroke prophylaxis (4) Asthma: Plan: Continue fluticasone/vilanterol INH daily or hospital formulary equivalent No current wheezing to suggest acute exacerbation (5) Abnormal CT scan of lung: (6) Pneumonia: Plan VTE Prophylaxis - Eliquis Diet - regular Disposition - admit to med/tele Admission and Anticipated Discharge Date Admission Date: September 01, 2024 Subjective patient seen and examined, still short of breath, and coughing Review of Systems Review of Systems: All systems reviewed are negative, apart from the ones contained in the history. Physical Exam Physical Exam: The patient is awake, alert and oriented 3, well developed and well nourished, normocephalic and atraumatic, lying in bed and in no acute distress. HEENT--PERRL, EOMI, mucous membranes and oropharynx mildly dry Neck--supple. No JVD. No bruits. Thyroid normal, trachea midline, no adenop athy. Heart--normal S1 and S2. No murmurs, rubs or gallops. Lungs--reduced air entry, mild resp distress Abdomen--normal bowel sounds and soft. Extremities--no cyanosis or clubbing. No edema. Dermatologic--normal skin turgor, normal color, no abnormal lymph nodes, no rash. Neurologic--cranial nerves II through XII grossly intact. Rheumatologic--normal range of motion. Psychiatric--normal affect. Results & Data Results & Data Vital Signs (Past 12 Hours) Vital Signs Temp Pulse Pulse Resp BP BP Pulse Ox 09/03/24 11:42 98.1 F 72 16 104/66 95 09/03/24 08:15 09/03/24 08:02 98.1 F 80 16 97/62 L 96 09/03/24 07:37 71 09/03/24 04:00 98.1 F 74 18 122/76 96 O2 Del Method O2 Flow Rate 09/03/24 11:42 Nasal Cannula 4 09/03/24 08:15 Nasal Cannula 4 09/03/24 08:02 Nasal Cannula 4 09/03/24 07:37 09/03/24 04:00 Nasal Cannula 4 PG Care Time/CCT Total # of Minutes Spent Total Time Spent with Patient: Total time spent is greater than 50% in coordination of care (as documented) at patient's floor/unit and/or counseling patient: Coding Level of Care Code 89880 SUB INP/OBS CARE 2/35MIN Diagnoses Acute and chronic respiratory failure with hypoxia J96.21 Orthostatic hypotension I95.1 Permanent atrial fibrillation I48.21 Atrial fibrillation type: permanent Mild intermittent asthma without complication J45.20 Asthma severity: mild Asthma persistence: intermittent Asthma complication type: uncomplicated Abnormal CT scan of lung R91.8 Pneumonia J18.9 Time Spent (min) 35 (3) Atrial fibrillation Atrial fibrillation type: permanent Qualified Code(s): I48.21 - Permanent atrial fibrillation (4) Asthma Asthma severity: mild Asthma persistence: intermittent Asthma complication type: uncomplicated Qualified Code(s): J45.20 - Mild intermittent asthma, unco mplicated
[2024-09-03] MEDS: AMOXICILLIN/CLAVULANATE 875 MG TAB PO SCH (17:53)
--- NOTE | 2024-09-04 10:11 | Pulmonology Progress Note ---
Date of Service September 04, 2024 Assessment & Plan (1) Abnormal CT scan of lung: (2) Acute and chronic respiratory failure with hypoxia: (3) Mild left ventricular systolic dysfunction: Plan Impression: 78-year-old male with progressive neurological disorder (CANVAS) admitted with shortness of breath. He is imaging studies from last month did demonstrate a nodular appearance to the right lung which appears somewhat improved on current chest x-ray. The etiology of his hypoxemia appears multifactorial with combinations of pulmonary hypertension, potential neuromuscular weakness, possible intermittent aspiration, and potential structural lung disease. CT of his chest did demonstrate some progression of the consolidation which appeared to be mainly located on the right side. Recommendations: 1. Recommend repeating video swallow study to evaluate for aspiration. Speech therapy consultation recommended given his neurological issues. This is scheduled for tomorrow. 2. Differential diagnosis for the abnormalities on the CT scan is broad and would include recurrent aspiration, interstitial lung disease, infectious etiologies or inflammatory etiologies. Will await speech therapy evaluation to exclude aspiration. Complete course of antibiotics. Patient is tolerating Augmentin despite his reported allergy to penicillin. Recommend completing 7 days. Continue azithromycin for atypical coverage. Depending on findings of his swallow study and response to antibiotics, could consider bronchoscopy with bronchoalveolar lavage and transbronchial biopsies to better define the pulmonary process. 3. Patient had normal PFTs performed in December 2023. Would recommend repeating them in the outpatient setting once the patient is clinically stable. I do not suspect this is asthma and inhalers are not warranted. 4. Hypercarbia: Will need to assess respiratory muscle strength including MIP/MEP/MVV when his PFTs are performed. We discussed CPAP and BiPAP however the patient is quite adamantly opposed to considering any of these options at this point in time. There is a correlation between sleep disordered breathing and the specific neurodegenerative condition this patient has. Could consider outpatient polysomnography but again the patient is quite reluctant to consider CPAP or BiPAP at this time even if it were to prolong his life. Hypercarbia is certainly contributing to the patient's hypoxemia. 5. Continue incentive spirometry and flutter valve. 6. Do not believe amiodarone is contributing currently and the risk-benefit ratio would favor continuing the medication at this point in time. Discussed with patient at bedside. Await swallow evaluation Admission and Anticipated Discharge Date Admission Date: September 01, 2024 Subjective Patient seen and examined. EMR reviewed. The patient reports he is doing okay clinically. He is scheduled for video swallow evaluation in the a.m. Hospitalist is elected to keep him in the hospital. He will use his cough is better. He is tolerating the Augmentin without any rashes despite his previous reported allergy to penicillin. No fevers or chills overnight. His appetite remains good. Review of Systems 2 Review of Systems: All systems reviewed & are unremarkable except as noted in Subjective Physical Exam 2 Constitutional: WD/WN, vitals as above + ill appearing, + disheveled and cooperative; no acute distress ENMT: external ear and nose normal, oropharynx normal Respiratory: normal respiratory effort; no respiratory distress A uscultation: no crackles and no wheezes Cardiovascular: Rate/Rhythm: regular rate and regular rhythm Heart Sounds: no murmur Extremities: normal capillary refill; no calf tenderness and no pedal edema Gastrointestinal (Abdomen): normal bowel sounds, soft, nontender, no hepatosplenomegaly Musculoskeletal: no cyanosis or clubbing, extremities motor strength 5/5 Skin: no rashes, warm and dry Neurologic: moves all extremities and awake; not confused Psychiatric: A+Ox3, euthymic affect Results & Data Results & Data Vital Signs (Past 12 Hours) Vital Signs Temp Pulse Pulse Resp BP Pulse Ox O2 Del Method 09/04/24 07:28 36.8 C 72 20 103/75 97 Nasal Cannula 09/04/24 07:17 72 09/04/24 04:00 36.7 C 74 18 136/87 96 Nasal Cannula 09/03/24 23:46 74 09/03/24 23:22 36.7 C 80 18 126/80 96 Nasal Cannula O2 Flow Rate 09/04/24 07:28 4 09/04/24 07:17 09/04/24 04:00 4 09/03/24 23:46 09/03/24 23:22 4 Laboratory Results 09/02/24 07:41 09/02/24 07:41 Diagnostic Findings No new imaging PG Care Time/CCT Total # of Minutes Spent Total Time Spent with Patient: Total time spent is greater than 50% in coordination of care (as documented) at patient's floor/unit and/or counseling patient: Coding Level of Care Code 21393 SUB INP/OBS CARE 2/35MIN Diagnoses Abnormal CT scan of lung R91.8 Acute and chronic respiratory failure with hypoxia J96.21 Mild left ventricular systolic dysfunction I51.89
--- NOTE | 2024-09-04 11:14 | Hospitalist Progress Note ---
Date of Service September 04, 2024 Assessment & Plan (1) Acute and chronic respiratory failure with hypoxia: Plan: Patient has had Multiple episode of pneumonia diagnosed in July culminating with needing continuous oxygen which he did not require prior to [place] adm ission in July. Etiology is uncertain, could be a combination of factors, including numerous pulmonary nodules seen on CT, fibrosis or pulm HTN Amiodarone not suspected to be causing his lung issues per pulmonology Biofire negative continue Augmentin and Azithromycin Plan is for bronchoscopy with lavage at some point after video swallow exam, and also repeat PFT outpatient will evaluate for aspiration by speech on 09/05 currently on 4L of oxygen, was on 2L at home Appreciate pulm recommendations (2) Orthostatic hypotension: Plan: This is a longstanding issue Likely made worse since he was started on alfuzosin in June. Will switch to tamsulosin. Improved with fludrocortisone 0.1mg PO daily continue to monitor Advice to get up from a lying position in graduated stages (3) Atrial fibrillation: Plan: Paroxysmal Currently in NSR Continue on amiodarone for rhythm control Continue on Eliquis for stroke prophylaxis (4) Asthma: Plan: Continue fluticasone/vilanterol INH daily or hospital formulary equivalent No current wheezing to suggest acute exacerbation (5) Abnormal CT scan of lung: (6) Pneumonia: Plan VTE Prophylaxis - Eliquis Diet - regular Disposition - admit to med/tele Admission and Anticipated Discharge Date Admission Date: September 01, 2024 Subjective patient seen and examined, feels over all better today, still some mild cough Review of Systems Review of Systems: All systems reviewed are negative, apart from the ones contained in the history. Physical Exam Physical Exam: The patient is awake, alert and oriented 3, well developed and well nourished, normocephalic and atraumatic, lying in bed and in no acute distress. HEENT--PERRL, EOMI, mucous membranes and oropharynx mildly dry Neck--supple. No JVD. No bruits. Thyroid normal, trachea midline, no adenopathy. Heart--normal S1 and S2. No murmurs, rubs or gallops. Lungs--reduced air entry, mild resp distress Abdomen--normal bowel sounds and soft. Extremities--no cyanosis or clubbing. No edema. Dermatologic--normal skin turgor, normal color, no abnormal lymph nodes, no rash. Neurologic--cranial nerves II through XII grossly intact. Rheumatologic--normal range of motion. Psychiatric--normal affect. Results & Data Results & Data Vital Signs (Past 12 Hours) Vital Signs Temp Pulse Pulse Resp BP BP Pulse Ox 09/04/24 10:54 92/53 L 09/04/24 10:52 97.7 F 69 20 92/59 L 95 09/04/24 07:50 09/04/24 07:28 98.2 F 72 20 103/75 97 09/04/24 07:17 72 09/04/24 04:00 98.1 F 74 18 136/87 96 09/03/24 23:46 74 09/03/24 23:22 98.1 F 80 18 126/80 96 O2 Del Method O2 Flow Rate 09/04/24 10:54 09/04/24 10:52 Nasal Cannula 4 09/04/24 07:50 Nasal Cannula 4 09/04/24 07:28 Nasal Cannula 4 09/04/24 07:17 09/04/24 04:00 Nasal Cannula 4 09/03/24 23:46 09/03/24 23:22 Nasal Cannula 4 PG Care Time/CCT Total # of Minutes Spent Total Time Spent with Patient: Total time spent is greater than 50% in coordination of care (as documented) at patient's floor/unit and/or counseling patient: Coding Level of Care Code 62086 SUB INP/OBS CARE 2/35MIN Diagnoses Acute and chronic respiratory failure with hypoxia J96.21 Orthostatic hypotension I95.1 Permanent atrial fibrillation I48.21 Atrial fibrillation type: permanent Mild intermittent asthma without complication J45.20 Asthma severity: mild Asthma persistence: intermittent Asthma complication type: uncomplicated Abnormal CT scan of lung R91.8 Pneumonia J18.9 Time Spent (min) 35 (3) Atrial fibrillation Atrial fibrillation type: permanent Qualified Code(s): I48.21 - Permanent atrial fibrillation (4) Asthma Asthma severity: mild Asthma persistence: intermittent Asthma complication type: uncomplicated Qualified Code(s): J45.20 - Mild intermittent asthma, uncomplicated
[2024-09-05 07:23] LABS: Hematocrit (blood only) 38.4 % (42.0-52.0); Hemoglobin 12.6 g/dl (14.0-18.0); Mean Corpuscular Hemoglobin 32.6 pg (25.0-34.0); Mean Corpuscular Hgb Conc 32.8 g/dL (32.0-36.0); Mean Corpuscular Volume 99.5 fL (80.0-100.0); Mean Platelet Volume 9.2 fL (9.4-12.4); Platelet Count 147 K/uL (130-400); Red Blood Count 3.86 M/uL (4.70-6.10); White Blood Count 7.89 K/ul (4.8-10.8)
[2024-09-05 08:02] LABS: BUN Creatinine Ratio 16.8 (10-20); Calcium 8.3 mg/dl (8.6-10.3); Creatinine Clr Calc Pharmacy 48.2 ml/min
--- NOTE | 2024-09-05 09:26 | Pulmonology Progress Note ---
Date of Service September 05, 2024 Assessment & Plan (1) Abnormal CT scan of lung: (2) Acute and chronic respiratory failure with hypoxia: (3) Mild left ventricular systolic dysfunction: Plan IMPRESSION: 78-year-old male with progressive neurological disorder (CANVAS) admitted with shortness of breath. He is imaging studies from last month did demonstrate a nodular appearance to the right lung which appears somewhat improved on current chest x-ray. The etiology of his hypoxemia appears multifactorial with combinations of pulmonary hypertension, potential neuromuscular weakness, possible intermittent aspiration, and potential structural lung disease. CT of his chest did demonstrate some progression of the consolidation which appeared to be mainly located on the right side. RECOMMENDATION: 1. Awaiting swallow evaluation. 2. Differential diagnosis for the abnormalities on the CT scan is broad and would include recurrent aspiration, interstitial lung disease, infectious etiologies or inflammatory etiologies. As well as studies today. Complete course of antibiotics. Patient is tolerating Augmentin despite his reported allergy to penicillin. Recommend completing 7 days. Continue azithromycin for atypical coverage. Depending on findings of his swallow study and response to antibiotics, could consider bronchoscopy with bronchoalveolar lavage and transbronchial biopsies to better define the pulmonary process. Thankfully, patient's oxygen requirement is improving. Sputum cultures sent today including AFB 3. Patient had normal PFTs performed in December 2023. Would recommend repeating them in the outpatient setting once the patient is clinically stable. I do not suspect this is asthma and inhalers are not warranted. 4. Hypercarbia: Will need to assess respiratory muscle strength including MIP/MEP/MVV when his PFTs are performed. We discussed CPAP and BiPAP however the patient is quite adamantly opposed to considering any of these options at this point in time. There is a correlation between sleep disordered breathing and the specific neurodegenerative condition this patient has. Could consider outpatient polysomnography but again the patient is quite reluctant to consider CPAP or BiPAP at this time even if it were to prolong his life. Hypercarbia is certainly contributing to the patient's hypoxemia. 5. Tolerating incentive spirometry and flutter valve well at this time. Thank you for allowing us to participate in the care of this pleasant patient. Admission and Anticipated Discharge Date Admission Date: September 01, 2024 Subjective Patient seen and evaluated at bedside. He reports that he is feeling better than yesterday. He was able to produce a a small thick, tenacious sputum culture which will be sent for sampling. He is continuing to utilize his flutter valve and incentive spirometer. No hemoptysis. No complaints today. Still waiting swallow evaluation. Review of Systems Review of Systems: As per HPI Physical Exam Physical Exam: VITAL SIGNS Vital signs and nursing notes were reviewed. GENERAL 78-year-old male appearing his stated age who is in no acute distress. Communicates well with provider and answers questions appropriately. SKIN Without rashes or lesions. NOSE Midline and without cyanosis. MOUTH/OROPHARYNX Without perioral cyanosis. NECK Neck with FROM. LUNGS Chest wall evaluation demonstrates increased chest wall A:P diameter. Auscultation reveals coarse breath sounds without wheezes. CARDIAC RRR with S1/S2. No murmur, rubs, or gallops appreciated. EXTREMITIES Nail clubbing not present. No peripheral cyanosis. No pretibial edema present. +3/5 radial palpated throughout. PSYCH A&Ox3 and cooperates fully with examiner. Pt is very pleasant and interacts well with examiner. Results & Data Results & Data Vital Signs (Past 12 Hours) Vital Signs Temp Pulse Pulse Resp BP Pulse Ox O2 Del Method 09/05/24 08:40 36.4 C L 74 18 96 Nasal Cannula 09/05/24 07:26 72 09/05/24 04:00 36.5 C 73 18 110/76 94 Nasal Cannula 09/05/24 02:19 70 09/04/24 23:00 36.8 C 83 18 104/63 97 Room Air O2 Flow Rate 09/05/24 08:40 2 09/05/24 07:26 09/05/24 04:00 2 09/05/24 02:19 09/04/24 23:00 PG Care Time/CCT Total # of Minutes Spent Total Time Spent with Patient: Total time spent is greater than 50% in coordination of care (as documented) at patient's floor/unit and/or counseling patient: Coding Level of Care Code 22686 SUB INP/OBS CARE 2/35MIN Diagnoses Abnormal CT scan of lung R91.8 Acute and chronic respiratory failure with hypoxia J96.21 Mild left ventricular systolic dysfunction I51.89
--- NOTE | 2024-09-05 10:47 | Hospitalist Progress Note ---
Date of Service September 05, 2024 Assessment & Plan (1) Acute and chronic respiratory failure with hypoxia: Plan: Patient has had Multiple episode of pneumonia diagnosed in July culminating with needing continuous oxygen which he did not require prior to [employer] adm ission in July. Etiology is uncertain, could be a combination of factors, including numerous pulmonary nodules seen on CT, fibrosis or pulm HTN Amiodarone not suspected to be causing his lung issues per pulmonology Biofire negative Patient is now back to his baseline oxygen requirement of 2L at home continue Augmentin and Azithromycin Plan is for bronchoscopy with lavage at some point after video swallow exam, and also repeat PFT outpatient will evaluate for aspiration by speech on 09/05 by video Appreciate pulm recommendations (2) Orthostatic hypotension: Plan: This is a longstanding issue Likely made worse since he was started on alfuzosin in June. Will switch to tamsulosin. Improved with fludrocortisone 0.1mg PO daily continue to monitor Advice to get up from a lying position in graduated stages (3) Atrial fibrillation: Plan: Paroxysmal Currently in NSR Continue on amiodarone for rhythm control Continue on Eliquis for stroke prophylaxis (4) Asthma: Plan: Continue fluticasone/vilanterol INH daily or hospital formulary equivalent No current wheezing to suggest acute exacerbation (5) Abnormal CT scan of lung: (6) Pneumonia: Plan VTE Prophylaxis - Eliquis Diet - regular Disposition - admit to med/tele Admission and Anticipated Discharge Date Admission Date: September 01, 2024 Subjective patient seen and examined, his breathing is better Review of Systems Review of Systems: All systems reviewed are negative, apart from the ones contained in the history. Physical Exam Physical Exam: The patient is awake, alert and oriented 3, well developed and well nourished, normocephalic and atraumatic, lying in bed and in no acute distress. HEENT--PERRL, EOMI, mucous membranes and oropharynx mildly dry Neck--supple. No JVD. No bruits. Thyroid normal, trachea midline, no adenopathy. Heart--normal S1 and S2. No murmurs, rubs or gallops. Lungs--reduced air entry, mild resp distress Abdomen--normal bowel sounds and soft. Extremities--no cyanosis or clubbing. No edema. Dermatologic--normal skin turgor, normal color, no abnormal lymph nodes, no rash. Neurologic--cranial nerves II through XII grossly intact. Rheumatologic--normal range of motion. Psychiatric--normal affect. Results & Data Results & Data Vital Signs (Past 12 Hours) Vital Signs Temp Pulse Pulse Resp BP Pulse Ox O2 Del Method 09/05/24 08:40 97.5 F L 74 18 96 Nasal Cannula 09/05/24 07:26 72 09/05/24 04:00 97.7 F 73 18 110/76 94 Nasal Cannula 09/05/24 02:19 70 09/04/24 23:00 98.2 F 83 18 104/63 97 Room Air O2 Flow Rate 09/05/24 08:40 2 09/05/24 07:26 09/05/24 04:00 2 09/05/24 02:19 09/04/24 23:00 PG Care Time/CCT Total # of Minutes Spent Total Time Spent with Patient: Total time spent is greater than 50% in coordination of care (as documented) at patient's floor/unit and/or counseling patient: Coding Level of Care Code 49058 SUB INP/OBS CARE 2/35MIN Diagnoses Acute and chronic respiratory failure with hypoxia J96.21 Orthostatic hypotension I95.1 Permanent atrial fibrillation I48.21 Atrial fibrillation type: permanent Mild intermittent asthma without complication J45.20 Asthma severity: mild Asthma persistence: intermittent Asthma complication type: uncomplicated Abnormal CT scan of lung R91.8 Pneumonia J18.9 Time Spent (min) 35 (3) Atrial fibrillation Atrial fibrillation type: permanent Qualified Code(s): I48.21 - Permanent atrial fibrillation (4) Asthma Asthma severity: mild Asthma persistence: intermittent Asthma complication type: uncomplicated Qualified Code(s): J45.20 - Mild intermittent asthma, uncomplicated
[2024-09-05 11:29] VITALS: RESP 20
--- NOTE | 2024-09-05 13:22 | Discharge Summary ---
Date of Service September 05, 2024 Admission HPI Per Admitting Provider Mukesh Jackson is a 78 year old male who presents to the ER from his cardiologists office with hypotension. He was noted to have sBP in 60s in the office with associated lightheadedness therefore sent over by EMS. He reports lightheadedness ongoing for the last 6 months although I saw him in May 2023 with this issue while on lisinopril so suspect it has been going on for longer. Since his repeated episodes of pneumonia he reports the dizziness has been a lot worse and much worse today. He was also notably started on alfuzosin in June for BPH symptoms which he reports has improved with this medication. With regards to his pneumonia diagnoses he was admitted at [facility] from July 27 - 2023 due to CAP and asthma exacerbation. Antibiotics were de-escalated to doxycycline alone with negative procalcitonin and no large area of consolidation. Oxygen was weaned off on day of discharge. He reports requiring re-admission to [facility] later the same month although records not available on admission. He notes being re-diagnosed with asthma exacerbation and pneumonia and again treated with antibiotics and steroids. He is currently on a tapering dose of steroids and will switch to prednisone 10mg PO daily tomorrow for 3 days then stop. He was unable to weaned off oxygen that admission and was discharged home with oxygen. He notes ongoing shortness of breath which is no where near his baseline prior to his pneumonia diagnoses. He has good and bad days but he does not feel this is progressively getting worse but also not improving. He reports not yet following up with pulmonology which is planned for next week. He took all his usual morning medications. Eating and drinking ok. Admission Exam (Per Admitting) Constitutional The patient is awake, alert and oriented 3, well developed and well nourished, normocephalic and atraumatic, lying in bed and in no acute distress. HEENT--PERRL, EOMI, mucous membranes and oropharynx mildly dry Neck--supple. No JVD. No bruits. Thyroid normal, trachea midline, no adenopathy. Heart--normal S1 and S2. No murmurs, rubs or gallops. Lungs--clear bilaterally, no respiratory distress, no accessory muscle use. Abdomen--normal bowel sounds and soft. Extremities--no cyanosis or clubbing. No edema. Dermatologic--normal skin turgor, normal color, no abnormal lymph nodes, no rash. Neurologic--cranial nerves II through XII grossly intact. Rheumatologic--normal range of motion. Psychiatric--normal affect. Discharge Data Consultations 09/01/24 13:15 ED Decision to Admit Stat 09/01/24 15:19 Consult Pulmonology Routine Hospital Course (1) Acute and chronic respiratory failure with hypoxia: Patient has had Multiple episode of pneumonia diagnosed in July culminating with needing continuous oxygen which he did not require prior to [place] admission in July. Etiology is uncertain, could be a combination of factors, including numerous pulmonary nodules seen on CT, fibrosis or pulm HTN Amiodarone not suspected to be causing his lung issues per pulmonology Biofire negative Patient is now back to his baseline oxygen requirement of 2L at home continue Augmentin and Azithromycin for 5 more days Plan is for bronchoscopy with lavage at some point and also repeat PFT outpatient video evaluation did not show any evidence of aspiration, but some osephageal dysfunction Plan is outpatient follow up with pulm and GI (2) Orthostatic hypotension: This is a longstanding issue Likely made worse since he was started on alfuzosin in June. Will switch to tamsulosin. Improved with fludrocortisone 0.1mg PO daily continue to monitor Advice to get up from a lying position in graduated stages (3) Atrial fibrillation: Paroxysmal Currently in NSR Continue on amiodarone for rhythm control Continue on Eliquis for stroke prophylaxis (4) Asthma: Continue fluticasone/vilanterol INH daily or hospital formulary equivalent No current wheezing to suggest acute exacerbation (5) Abnormal CT scan of lung: (6) Pneumonia: Plan VTE Prophylaxis - Eliquis Diet - regular Disposition - admit to med/tele Coding Level of Care Code 30023 INP/OBS DISCH >30 MIN Diagnoses Acute and chronic respiratory failure with hypoxia J96.21 Orthostatic hypotension I95.1 Permanent atrial fibrillation I48.21 Atrial fibrillation type: permanent Mild intermittent asthma without complication J45.20 Asthma severity: mild Asthma persistence: intermittent Asthma complication type: uncomplicated Abnormal CT scan of lung R91.8 Pneumonia J18.9 Time Spent (min) 35
--- NOTE | 2024-09-05 13:28 | Fluoroscopy Report ---
FL video swallow CLINICAL HISTORY: 78 years-old Male with r/o aspiration. TECHNIQUE: Video fluoroscopic evaluation of swallowing was performed in the AP and lateral projection s by the speech pathology staff. The patient is fed varying consistencies of barium. FLUOROSCOPY TIME: 1.28 minutes. 1790 images were submitted. 9.21 mGy. COMPARISON STUDY: 10/05/2023 FINDINGS: There is normal hyoid excursion and epiglottic deflection. No significant penetration or as piration identified. Moderate esophageal dysmotility. IMPRESSION: 1. No aspiration identified. 2. Moderate esophageal dysmotility. 3. Please see the speech pathologist report for detailed findings and recommendations. ACT 112: Negative or not required by law. Electronically signed by: Dante Aguilar M.D. 09/05/2024 1:26 PM
[2024-09-05 16:08] VITALS: PULSE 68; TEMP 97.3; O2SAT 95
[2024-09-05 16:37] VITALS: BP 92/53
--- NOTE | 2024-09-05 21:41 | Electrocardiogram Report ---
Test Reason : Blood Pressure : */* mmHG Vent. Rate : 69 BPM Atrial Rate : 69 BPM P-R Int : 182 ms QRS Dur : 98 ms QT Int : 394 ms P-R-T Axes : 62 -20 67 degrees QTcB Int : 422 ms Sinus rhythm with frequent Premature ventricular complexes Minimal voltage criteria for LVH, may be normal variant ( R in aVL ) Borderline ECG When compared with ECG of 27-Jul-2024 21:23, Premature ventricular complexes are now Present Confirmed by Kevin Tejeda ([id number]) on 09/05/2024 9:41:08 PM Referred By: REFERRED SELF Confirmed By: Kevin Tejeda
== END 2024-09-05 17:55 | disposition home or self-care (01) | DRG 312 ==
LOC: ED 11:09 → EDINP 15:18 → SUATTDRO 15:18 → 2N 18:08